=== PATIENT | female | born 1940 | race Caucasian/White ===

== ENCOUNTER 2016-04-26 11:40 | Inpatient (IN) | payer MEDICARE, BC ==
[2016-04-26] MEDS ORDERED: SODIUM CHLORIDE 0.9% 500 ML IV STA (12:02)
[2016-04-26] MEDS ORDERED: SODIUM CHLORIDE 0.9% 1,000 ML IV STA ×2 (12:02)
[2016-04-26] MEDS ORDERED: KETOROLAC 30 MG/ML 1 ML VIAL IVP STA (12:02)
[2016-04-26] MEDS ORDERED: DILTIAZEM 5 MG/ML 5 ML VIAL IVP STA (12:02)
[2016-04-26] MEDS ORDERED: ACETAMINOPHEN IV (For NPO) 1,000 MG in EMPTY BAG 1 BAG IVPB STA (12:02)
[2016-04-26] MEDS ORDERED: DILTIAZEM 125 MG in SODIUM CHLORIDE 0.9% 100 ML IV ONE (12:02)
--- NOTE | 2016-04-26 12:05 | ED ---
General Adult HPI - General Chief complaint: Arrhythmia/Palpitations Stated complaint: [facility] Time Seen by Provider: 04/26/16 11:53 Source: patient, RN notes reviewed, old records reviewed Mode of arrival: wheelchair Limitations: no limitations - History of Present Illness Initial comments: This is a 76-year-old female to the ER for evaluation of not feeling well. Patient went to see her doctor is, preop evaluation as well as in general not feeling well. Patient is history of high blood pressure, patient at this time is coming in with shortness of breath cough congestion she thought she may have bronchitis or upper respiratory infection. Fevers and chills yesterday and fever today. Patient does have shortness of breath, patient was found in her doctor's office to be in A. fib with RVR and was sent to ER for evaluation. Patient at this time denies any chest pain and no prior history - Related Data Home Medications Medication Instructions Recorded Confirmed Calcium Carbonate [Calcium] 1,200 mg PO AC-LUNCH 04/26/16 04/26/16 Cholecalciferol [Vitamin D3] 4,000 unit PO AC-LUNCH 04/26/16 04/26/16 Fish Oil 300mg 600 mg PO AC-LUNCH 04/26/16 04/26/16 Folic Acid 1 mg PO DAILY 04/26/16 04/26/16 Ipratropium [place] 0.06%Nasal 1 spray EA NOSTRIL DAILY 04/26/16 04/26/16 [Atrovent Nasal] Levothyroxine Sodium [Synthroid] 88 mcg PO DAILY 04/26/16 04/26/16 Meloxicam [Mobic] 15 mg PO DAILY 04/26/16 04/26/16 Methotrexate Sodium [Methotrexate] 15 mg PO GALVAN 04/26/16 04/26/16 Multivitamins, Thera [Multivitamin] 1 tab PO AC-LUNCH 04/26/16 04/26/16 predniSONE 5 mg PO DAILY 04/26/16 04/26/16 Allergies Allergy/AdvReac Type Severity Reaction Status Date / Time erythromycin base Allergy Unknown Verified 04/26/16 13:23 infliximab [From Remicade] Allergy Unknown Verified 04/26/16 13:23 Review of Systems ROS Statement: Those systems with pertinent positive or pertinent negative responses have been documented in the HPI. ROS Other: All systems not noted in ROS Statement are negative. Past Medical History Past Medical History: Rheumatoid Arthritis (RA), Thyroid Disorder History of Any Multi-Drug Resistant Organisms: None Reported Past Surgical History: Hernia Repair, Hysterectomy, Orthopedic Surgery Additional Past Surgical History / Comment(s): eye surgery Past Psychological History: No Psychological Hx Reported Smoking Status: Former smoker Past Alcohol Use History: None Reported Past Drug Use History: None Reported General Exam Limitations: no limitations General appearance: alert, in no apparent distress, anxious Head exam: Present: atraumatic, normocephalic, normal inspection Eye exam: Present: normal appearance, PERRL, EOMI. Absent: scleral icterus, conjunctival injection, periorbital swelling ENT exam: Present: normal exam, mucous membranes moist Neck exam: Present: normal inspection. Absent: tenderness, meningismus, lymphadenopathy Respiratory exam: Present: normal lung sounds bilaterally. Absent: respiratory distress, wheezes, rales, rhonchi, stridor Cardiovascular Exam: Present: tachycardia, irregular rhythm, normal heart sounds. Absent: systolic murmur, diastolic murmur, rubs, gallop, clicks GI/Abdominal exam: Present: soft, normal bowel sounds. Absent: distended, tenderness, guarding, rebound, rigid Extremities exam: Present: normal inspection, full ROM, normal capillary refill. Absent: tenderness, pedal edema, joint swelling, calf tenderness Back exam: Present: normal inspection Neurological exam: Present: alert, oriented X3, CN II-XII intact Psychiatric exam: Present: normal affect, normal mood Skin exam: Present: warm, dry, intact, normal color. Absent: rash Course Vital Signs 04/26/16 04/26/16 04/26/16 11:49 12:51 13:00 Temperature 100.8 F H Pulse Rate 162 H 166 H 85 Respiratory 20 18 18 Rate Blood Pressure 124/83 149/85 148/85 O2 Sat by Pulse 98 97 97 Oximetry 04/26/16 13:17 Temperature Pulse Rate 65 Respiratory 18 Rate Blood Pressure 137/61 O2 Sat by Pulse 94 L Oximetry - Reevaluation(s) Reevaluation #1: 04/26/16 13:18 Patient has good heart rate control with fever control as well as Cardizem EKG Findings - EKG Comments: EKG Findings:: EKG shows A. fib with RVR rate 138, QRS 82, QTC 448 Medical Decision Making - Medical Decision Making Mckayla female here for evaluation of new onset A. fib with RVR, patient remains in A. fib with RVR but now with rate control, patient will be admitted for for cardiology observation and treatment. Patient also found a fever, no known source at this time. Patient will be admitted for evaluation of blood cultures and urine. Chest x-ray this time is negative for pneumonia. - Lab Data Result diagrams: 04/26/16 12:10 04/26/16 12:10 Lab Results 04/26/16 04/26/16 04/26/16 Range/Units 12:10 12:10 12:10 WBC 9.0 (3.8-10.6) k/uL RBC 5.05 (3.80-5.40) m/uL Hgb 15.5 (11.4-16.0) gm/dL Hct 48.2 H (34.0-46.0) % MCV 95.5 (80.0-100.0) fL MCH 30.6 (25.0-35.0) pg MCHC 32.1 (31.0-37.0) g/dL RDW 14.6 (11.5-15.5) % Plt Count 193 (150-450) k/uL Neutrophils % 86 % Lymphocytes % 5 % Monocytes % 7 % Eosinophils % 1 % Basophils % 1 % Neutrophils # 7.7 (1.3-7.7) k/uL Lymphocytes # 0.5 L (1.0-4.8) k/uL Monocytes # 0.6 (0-1.0) k/uL Eosinophils # 0.1 (0-0.7) k/uL Basophils # 0.1 (0-0.2) k/uL PT (9.0-12.0) sec INR (<1.1) APTT (22.0-30.0) sec D-Dimer (<0.60) mg/L FEU Sodium 141 (137-145) mmol/L Potassium 4.2 (3.5-5.1) mmol/L Chloride 105 (98-107) mmol/L Carbon Dioxide 28 (22-30) mmol/L Anion Gap 8 mmol/L BUN 13 (7-17) mg/dL Creatinine 0.70 (0.52-1.04) mg/dL Est GFR (MDRD) Af Amer >60 (>60 ml/min/1.73 sqM) Est GFR (MDRD) Non-Af >60 (>60 ml/min/1.73 sqM) Glucose 159 H (74-99) mg/dL Plasma Lactic Acid Patrick (0.7-2.0) mmol/L Calcium 9.2 (8.4-10.2) mg/dL Phosphorus 2.8 (2.5-4.5) mg/dL Magnesium 1.8 (1.6-2.3) mg/dL Total Bilirubin 0.9 (0.2-1.3) mg/dL AST 30 (14-36) U/L ALT 40 (9-52) U/L Alkaline Phosphatase 69 (38-126) U/L Total Creatine Kinase 35 (30-135) U/L CK-MB (CK-2) 0.7 (0.0-2.4) ng/mL CK-MB (CK-2) Rel Index 2.0 Troponin I 0.012 (0.000-0.034) ng/mL NT-Pro-B Natriuret Pep pg/mL Total Protein 6.5 (6.3-8.2) g/dL Albumin 3.8 (3.5-5.0) g/dL Urine Color Urine Appearance (Clear) Urine pH (5.0-8.0) Ur Specific [place] [employer] (1.001-1.035) Urine Protein (Negative) Urine Glucose (UA) (Negative) Urine Ketones (Negative) Urine Blood (Negative) Urine Nitrate (Negative) Urine Bilirubin (Negative) Urine Urobilinogen (<2.0) mg/dL Ur Leukocyte Esterase (Negative) Urine RBC (0-5) /hpf Urine WBC (0-5) /hpf Ur Squamous Epith Cells (0-4) /hpf Urine Mucus (None) /hpf 04/26/16 04/26/16 04/26/16 Range/Units 12:10 12:10 12:24 WBC (3.8-10.6) k/uL RBC (3.80-5.40) m/uL Hgb (11.4-16.0) gm/dL Hct (34.0-46.0) % MCV (80.0-100.0) fL MCH (25.0-35.0) pg MCHC (31.0-37.0) g/dL RDW (11.5-15.5) % Plt Count (150-450) k/uL Neutrophils % % Lymphocytes % % Monocytes % % Eosinophils % % Basophils % % Neutrophils # (1.3-7.7) k/uL Lymphocytes # (1.0-4.8) k/uL Monocytes # (0-1.0) k/uL Eosinophils # (0-0.7) k/uL Basophils # (0-0.2) k/uL PT 12.3 H (9.0-12.0) sec INR 1.2 (<1.1) APTT 22.3 (22.0-30.0) sec D-Dimer 0.45 (<0.60) mg/L FEU Sodium (137-145) mmol/L Potassium (3.5-5.1) mmol/L Chloride (98-107) mmol/L Carbon Dioxide (22-30) mmol/L Anion Gap mmol/L BUN (7-17) mg/dL Creatinine (0.52-1.04) mg/dL Est GFR (MDRD) Af Amer (>60 ml/min/1.73 sqM) Est GFR (MDRD) Non-Af (>60 ml/min/1.73 sqM) Glucose (74-99) mg/dL Plasma Lactic Acid Patrick 1.2 (0.7-2.0) mmol/L Calcium (8.4-10.2) mg/dL Phosphorus (2.5-4.5) mg/dL Magnesium (1.6-2.3) mg/dL Total Bilirubin (0.2-1.3) mg/dL AST (14-36) U/L ALT (9-52) U/L Alkaline Phosphatase (38-126) U/L Total Creatine Kinase (30-135) U/L CK-MB (CK-2) (0.0-2.4) ng/mL CK-MB (CK-2) Rel Index Troponin I (0.000-0.034) ng/mL NT-Pro-B Natriuret Pep 2930 pg/mL Total Protein (6.3-8.2) g/dL Albumin (3.5-5.0) g/dL Urine Color Urine Appearance (Clear) Urine pH (5.0-8.0) Ur Specific [place] [employer] (1.001-1.035) Urine Protein (Negative) Urine Glucose (UA) (Negative) Urine Ketones (Negative) Urine Blood (Negative) Urine Nitrate (Negative) Urine Bilirubin (Negative) Urine Urobilinogen (<2.0) mg/dL Ur Leukocyte Esterase (Negative) Urine RBC (0-5) /hpf Urine WBC (0-5) /hpf Ur Squamous Epith Cells (0-4) /hpf Urine Mucus (None) /hpf 04/26/16 Range/Units 12:55 WBC (3.8-10.6) k/uL RBC (3.80-5.40) m/uL Hgb (11.4-16.0) gm/dL Hct (34.0-46.0) % MCV (80.0-100.0) fL MCH (25.0-35.0) pg MCHC (31.0-37.0) g/dL RDW (11.5-15.5) % Plt Count (150-450) k/uL Neutrophils % % Lymphocytes % % Monocytes % % Eosinophils % % Basophils % % Neutrophils # (1.3-7.7) k/uL Lymphocytes # (1.0-4.8) k/uL Monocytes # (0-1.0) k/uL Eosinophils # (0-0.7) k/uL Basophils # (0-0.2) k/uL PT (9.0-12.0) sec INR (<1.1) APTT (22.0-30.0) sec D-Dimer (<0.60) mg/L FEU Sodium (137-145) mmol/L Potassium (3.5-5.1) mmol/L Chloride (98-107) mmol/L Carbon Dioxide (22-30) mmol/L Anion Gap mmol/L BUN (7-17) mg/dL Creatinine (0.52-1.04) mg/dL Est GFR (MDRD) Af Amer (>60 ml/min/1.73 sqM) Est GFR (MDRD) Non-Af (>60 ml/min/1.73 sqM) Glucose (74-99) mg/dL Plasma Lactic Acid Patrick (0.7-2.0) mmol/L Calcium (8.4-10.2) mg/dL Phosphorus (2.5-4.5) mg/dL Magnesium (1.6-2.3) mg/dL Total Bilirubin (0.2-1.3) mg/dL AST (14-36) U/L ALT (9-52) U/L Alkaline Phosphatase (38-126) U/L Total Creatine Kinase (30-135) U/L CK-MB (CK-2) (0.0-2.4) ng/mL CK-MB (CK-2) Rel Index Troponin I (0.000-0.034) ng/mL NT-Pro-B Natriuret Pep pg/mL Total Protein (6.3-8.2) g/dL Albumin (3.5-5.0) g/dL Urine Color Yellow Urine Appearance Clear (Clear) Urine pH 6.0 (5.0-8.0) Ur Specific [place] [employer] 1.006 (1.001-1.035) Urine Protein Negative (Negative) Urine Glucose (UA) Negative (Negative) Urine Ketones Negative (Negative) Urine Blood Small H (Negative) Urine Nitrate Negative (Negative) Urine Bilirubin Negative (Negative) Urine Urobilinogen <2.0 (<2.0) mg/dL Ur Leukocyte Esterase Negative (Negative) Urine RBC 2 (0-5) /hpf Urine WBC 2 (0-5) /hpf Ur Squamous Epith Cells 2 (0-4) /hpf Urine Mucus Rare H (None) /hpf - Radiology Data Radiology results: report reviewed (Chest x-ray is negative for acute disease), image reviewed Critical Care Time Critical Care Time: Yes Total Critical Care Time: 31 Disposition Clinical Impression: Atrial fibrillation with RVR, Fever Disposition: ADMITTED IP TO THIS HOSP Condition: Fair Referrals: Jhonny Ryan DO [Primary Care Provider] - 1-2 days
[2016-04-26 12:21] LABS: Basophils # (A) 0.1 k/uL (0-0.2); Basophils % (A) 1 %; CH 31.1; CHCM 32.8; Eosinophils # (A) 0.1 k/uL (0-0.7); Eosinophils % (A) 1 %; HCT 48.2 % (34.0-46.0); HDW 2.49; HGB 15.5 gm/dL (11.4-16.0); Luc # (Auto) 0.11; Luc % (Auto) 1; Lymphocytes # (A) 0.5 k/uL (1.0-4.8); Lymphocytes % (A) 5 %; MCH 30.6 pg (25.0-35.0); MCHC 32.1 g/dL (31.0-37.0); MCV 95.5 fL (80.0-100.0); Mean Platelet Volume 8.9; Monocytes # (A) 0.6 k/uL (0-1.0); Monocytes % (A) 7 %; Neutrophils # (A) 7.7 k/uL (1.3-7.7); Neutrophils % (A) 86 %; RBC 5.05 m/uL (3.80-5.40); RDW 14.6 % (11.5-15.5); WBC (Perox) 8.73
[2016-04-26 12:36] LABS: ALT 40 U/L (9-52); AST 30 U/L (14-36); Alkaline Phosphatase 69 U/L (38-126); Anion Gap 8 mmol/L; Blood Urea Nitrogen 13 mg/dL (7-17); Calcium 9.2 mg/dL (8.4-10.2); Carbon Dioxide 28 mmol/L (22-30); Chloride 105 mmol/L (98-107); Glucose 159 mg/dL (74-99); INR 1.2 (<1.1); Magnesium 1.8 mg/dL (1.6-2.3); Non-African American GFR(MDRD) >60 (>60 ml/min/1.73 sqM); Partial Thromboplastin Time 22.3 sec (22.0-30.0); Phosphorous 2.8 mg/dL (2.5-4.5); Potassium 4.2 mmol/L (3.5-5.1); Prothrombin Time 12.3 sec (9.0-12.0); Sodium 141 mmol/L (137-145); Total Bilirubin 0.9 mg/dL (0.2-1.3); Total Protein 6.5 g/dL (6.3-8.2)
--- NOTE | 2016-04-26 12:49 | XR ---
EXAMINATION TYPE: XR chest 2V DATE OF EXAM: 04/26/2016 12:37 PM COMPARISON: 06/06/2012 HISTORY: 76-year-old female cough, shortness of breath, weakness TECHNIQUE: Frontal and lateral views FINDINGS: Heart is normal size. Aorta and pelvic vasculature within normal limits. Mild hyperinflation mild int erstitial prominence. No consolidation or pleural effusion seen. IMPRESSION: Chronic changes, possible underlying COPD. No acute process seen.
[2016-04-26 13:06] LABS: Creatine Kinase MB 0.7 ng/mL (0.0-2.4); Troponin I 0.012 ng/mL (0.000-0.034)
[2016-04-26 13:08] LABS: Appearance,Urine Clear (Clear); Bilirubin,Urine Negative (Negative); Glucose,Urine (UA) Negative (Negative); Ketones,Urine Negative (Negative); Leukocyte Esterase,Urine Negative (Negative); Mucus,Urine Rare /hpf; Nitrite,Urine Negative (Negative); Particle Count 1430; Protein,Urine Negative (Negative); RBC,Urine 2 /hpf (0-5); Specific Gravity,Urine 1.006 (1.001-1.035); Squamous Epithelial Cell,Urine 2 /hpf (0-4); UA Billing (MACRO vs. MICRO) MICRO; Urobilinogen,Urine <2.0 mg/dL (<2.0); WBC,Urine 2 /hpf (0-5)
[2016-04-26] MEDS ORDERED: HEPARIN SODIUM,PORCINE 5,000 UNIT/ML 1 ML VIAL IV PRN (14:00)
[2016-04-26] MEDS ORDERED: NITROGLYCERIN SL TABS 0.4 MG TAB SUBLINGUAL PRN (14:00)
[2016-04-26] MEDS ORDERED: ASPIRIN 81 MG CHEW PO STA (14:00)
[2016-04-26] MEDS ORDERED: HEPARIN SODIUM,PORCINE/D5W PMX 25,000 UNIT in DEXTROSE/WATER 1 500ML.BAG IV SCH (14:00)
[2016-04-26] MEDS ORDERED: HEPARIN SODIUM,PORCINE 5,000 UNIT/ML 1 ML VIAL IV ONE (14:00)
[2016-04-26] MEDS: SODIUM CHLORIDE 0.9% 1,000 ML IV SCH (14:50)
--- NOTE | 2016-04-26 15:39 | P.CRDCN ---
History of Present Illness Consult date: 04/26/16 Requesting physician: Asif Mena Consult reason: atrial fibrillation Chief complaint: Chest discomfort History of present illness: This is a pleasant 76-year-old female with history of rheumatoid arthritis, hypothyroidism, who states that yesterday morning she developed a discomfort in her mid chest area with radiation through to her back, up the sides of her neck and into her jaw. She denies any overt palpitations but states that at time she did notice her heart beating fast. Patient originally thought the symptoms may be a flareup of her rheumatoid. Then the patient states she developed some chills and thought she may be developing a bronchitis. She knew that she had a follow-up appointment with her doctor this morning for preop clearance for cataract surgery, therefore she waited to come to the hospital. At her physician's office, patient was found to be in atrial fibrillation with a rapid ventricular response and was directed to come to the emergency room for further evaluation. On presentation here EKG showed A. fib with rapid ventricular response, patient was initiated on IV Cardizem along with IV heparin. Blood pressure on arrival 124/80, heart rate 160, temperature was 100.8. Chest x-ray revealed chronic changes with underlying COPD. Laboratory data was reviewed, CBC normal. D-dimer 0.45, potassium 4.2, BUN 13, creatinine 0.7. Troponin 0.012, BNP level 2930. Magnesium level I.8. My examination, patient actually feels well, denies any chest pain, no palpitations. Past Medical History Past Medical History: Rheumatoid Arthritis (RA), Thyroid Disorder History of Any Multi-Drug Resistant Organisms: None Reported Past Surgical History: Hernia Repair, Hysterectomy, Orthopedic Surgery Additional Past Surgical History / Comment(s): eye surgery Past Psychological History: No Psychological Hx Reported Smoking Status: Former smoker Past Alcohol Use History: None Reported Past Drug Use History: None Reported Medications and Allergies Home Medications Medication Instructions Recorded Confirmed Type Calcium Carbonate [Calcium] 1,200 mg PO AC-LUNCH 04/26/16 04/26/16 History Cholecalciferol [Vitamin D3] 4,000 unit PO AC-LUNCH 04/26/16 04/26/16 History Fish Oil 300mg 600 mg PO AC-LUNCH 04/26/16 04/26/16 History Folic Acid 1 mg PO DAILY 04/26/16 04/26/16 History Ipratropium [place] 0.06%Nasal 1 spray EA NOSTRIL DAILY 04/26/16 04/26/16 History [Atrovent Nasal] Levothyroxine Sodium [Synthroid] 88 mcg PO DAILY 04/26/16 04/26/16 History Meloxicam [Mobic] 15 mg PO DAILY 04/26/16 04/26/16 History Methotrexate Sodium [Methotrexate] 15 mg PO GALVAN 04/26/16 04/26/16 History Multivitamins, Thera [Multivitamin] 1 tab PO AC-LUNCH 04/26/16 04/26/16 History predniSONE 5 mg PO DAILY 04/26/16 04/26/16 History Allergies Allergy/AdvReac Type Severity Reaction Status Date / Time erythromycin base Allergy Unknown Verified 04/26/16 13:23 infliximab [From Remicade] Allergy Unknown Verified 04/26/16 13:23 Physical Exam Vitals: Vital Signs Temp Pulse Resp BP Pulse Ox 04/26/16 14:57 99.4 F 95 18 137/61 98 PHYSICAL EXAMINATION: HEENT: Head is atraumatic, normocephalic. Pupils equal, round. Neck is supple. There is no elevated jugular venous pressure. HEART EXAMINATION: S1 and S2 irregular irregular CHEST EXAMINATION: Lungs are clear to auscultation and precussion. No chest wall tenderness is noted on palpation or with deep breathing. ABDOMEN: Soft, nontender. Bowel sounds are heard. No organomegaly noted. EXTREMITIES: 2+ peripheral pulses with no evidence of peripheral edema and no calf tenderness noted. NEUROLOGIC patient is awake, alert and oriented -3. . Results 04/26/16 12:10 04/26/16 12:10 Current Medications Generic Name Dose Route Start Last Admin Trade Name Freq PRN Reason Stop Dose Admin Aspirin 325 mg 04/27/16 09:00 Aspirin PO DAILY [facility] Atorvastatin Calcium 80 mg 04/27/16 09:00 Lipitor PO DAILY [facility] Heparin Sodium (Porcine) 0 unit 04/26/16 14:00 Heparin IV Q6HR PRN Low PTT Protocol Diltiazem HCl 125 mg/ Sodium 125 mls @ 5 mls/hr 04/26/16 12:02 04/26/16 13:20 Chloride IV 04/27/16 12:01 Not Given .Q24H ONE 5 MG/HR Sodium Chloride 1,000 mls @ 100 mls/hr 04/26/16 12:02 04/26/16 14:44 Saline 0.9% IV 04/26/16 22:01 Not Given .Q10H STA Heparin Sodium/Dextrose 25,000 500 mls @ 17.41 mls/hr 04/26/16 14:00 14:55 unit/ IV Solution IV 12 units/kg/hr .Q24H NEGRO 17.41 mls/hr Protocol Administration 12 UNITS/KG/HR Sodium Chloride 1,000 mls @ 100 mls/hr 04/26/16 14:00 04/26/16 14:50 Saline 0.9% IV 100 mls/hr .Q10H NEGRO Administration Morphine Sulfate 4 mg 04/26/16 14:00 Morphine Sulfate (Inj) IV Q4HR PRN Chest Pain Nitroglycerin 0.4 mg 04/26/16 14:00 Nitrostat SUBLINGUAL Q5M PRN Chest Pain EKG Interpretations (text) EKG shows atrial fibrillation with a rapid ventricular response. Assessment and Plan Plan: Assessment and Plan #1 Atrial fibrillation with rapid ventricular response, appears to be of new onset. #2 hypothyroidism #3 symptoms of chest discomfort with radiation to the throat area, could be secondary to A. fib with RVR, initial troponin negative. #4 symptoms of mild shortness of breath, and also be secondary to A. fib with RVR, BNP level 2930. Low-grade temp on arrival #5 rheumatoid arthritis Plan We'll obtain an echocardiogram with Doppler study, continue IV heparin, continue IV Cardizem, check free T4 and TSH level. Further recommendations will be based on these findings and the patient's critical course. DNP note has been reviewed, I agree with a documented findings and plan of care. Patient was seen and examined.
--- NOTE | 2016-04-26 16:27 | P.PN ---
Progress Note - Text This is an addendum to the dictated cardiology consultation. The patient has a history of rheumatoid arthritis. Yesterday she felt dyspneic, worse than her baseline with symptoms of chest tightness and palpitations. Came into the emergency room and was noted to be in atrial fibrillation with a rapid ventricle response. She was scheduled to undergo cardiac surgery soon and was seen earlier today by her PCP for preoperative evaluation. Patient had symptoms of dizziness about 2 weeks ago and was diagnosed with an upper respiratory infection. Her level of activity stable, she has dyspnea on exertion without any significant changes. She has no prior history of ischemic heart disease or heart failure. She has no history of documented arrhythmia. Her physical examination shows no lung congestion, she is in atrial fibrillation. Her EKG is consistent with atrial fibrillation. I will obtain an echocardiogram with Doppler, the patient is started on IV Cardizem and IV heparin. If her cardiac enzymes are normal then we will switch her to oral anticoagulation and oral Cardizem. She will benefit from an myocardial perfusion imaging to rule out any ischemic component. Depending on her progress further recommendations will be made. Thank you for this consult we will follow with you.
[2016-04-26 19:15] LABS: Creatine Kinase 39 U/L (30-135)
[2016-04-26 19:26] LABS: Creatine Kinase MB 0.8 ng/mL (0.0-2.4)
[2016-04-26 20:05] LABS: Troponin I <0.012 ng/mL (0.000-0.034)
[2016-04-26 23:09] LABS: Creatine Kinase 32 U/L (30-135)
[2016-04-26 23:19] LABS: Creatine Kinase MB 0.7 ng/mL (0.0-2.4); Troponin I <0.012 ng/mL (0.000-0.034)
[2016-04-27] MEDS: SODIUM CHLORIDE 0.9% 1,000 ML IV SCH ×2 (00:17→09:26)
[2016-04-27] MEDS: MORPHINE SULFATE 4 MG/ML SYRINGE IV PRN (01:33)
[2016-04-27] MEDS ORDERED: DILTIAZEM 5 MG/ML 5 ML VIAL IVP STA (03:19)
[2016-04-27] MEDS ORDERED: DILTIAZEM 125 MG in SODIUM CHLORIDE 0.9% 100 ML IV SCH (03:30)
[2016-04-27] MEDS: LEVOTHYROXINE 88 MCG TAB PO SCH (06:13)
[2016-04-27 06:43] LABS: Basophils % (A) 0 %; CH 30.3; CHCM 31.5; Eosinophils % (A) 0 %; HCT 44.3 % (34.0-46.0); HDW 2.45; HGB 13.6 gm/dL (11.4-16.0); Luc # (Auto) 0.17; Luc % (Auto) 2; Lymphocytes # (A) 0.6 k/uL (1.0-4.8); Lymphocytes % (A) 6 %; MCH 29.8 pg (25.0-35.0); MCHC 30.8 g/dL (31.0-37.0); MCV 96.9 fL (80.0-100.0); Mean Platelet Volume 7.9; Monocytes # (A) 0.8 k/uL (0-1.0); Monocytes % (A) 9 %; Neutrophils # (A) 7.3 k/uL (1.3-7.7); Neutrophils % (A) 82 %; RBC 4.57 m/uL (3.80-5.40); RDW 14.5 % (11.5-15.5); WBC (Perox) 9.35
[2016-04-27 06:52] LABS: Anion Gap 8 mmol/L; Blood Urea Nitrogen 12 mg/dL (7-17); Calcium 8.4 mg/dL (8.4-10.2); Carbon Dioxide 25 mmol/L (22-30); Chloride 107 mmol/L (98-107); Cholesterol 147 mg/dL (<200); Glucose 124 mg/dL (74-99); HDL Cholesterol 67 mg/dL (40-60); Non-African American GFR(MDRD) >60 (>60 ml/min/1.73 sqM); Potassium 4.6 mmol/L (3.5-5.1); Sodium 140 mmol/L (137-145); Triglycerides 56 mg/dL (<150)
[2016-04-27] MEDS: IPRATROPIUM BROMIDE 0.06% NASAL SPRAY (15 ML) EA NOSTRIL SCH (08:32)
[2016-04-27] MEDS: ATORVASTATIN 80 MG TAB PO SCH (08:33)
[2016-04-27] MEDS: predniSONE 5 MG TAB PO SCH (08:34)
[2016-04-27] MEDS: MELOXICAM 7.5 MG TAB PO SCH (08:35)
[2016-04-27] MEDS ORDERED: ASPIRIN 325 MG TAB PO SCH (09:00)
--- NOTE | 2016-04-27 09:54 | HP ---
DATE OF ADMISSION: CHIEF COMPLAINT: Atrial fibrillation. HISTORY OF PRESENT ILLNESS: This 76-year-old woman with a past medical history of multiple medical problems including rheumatoid arthritis, history of hypothyroidism, history of lower lip cancer, history of hernia repair, history of hysterectomy being followed by Dr. Ryan in the outpatient setting was not feeling well for the last couple of days. The patient had a sore back and the patient was also complaining of some chest discomfort. The patient is generally not feeling well and patient apparently was busy last week according to her taking appointments and such, but the patient also was complaining of some shortness of breath, cough and congestion. Because of the multiple medical issues, the patient Dr. Ryan's office and EKG in the office showed atrial fibrillation with fast ventricular rate. Patient was transferred to [facility] for further evaluation and treatment. EKG confirmed atrial fibrillation with a fast ventricular rate. The patient was started on Cardizem drip. There is no history of any fever, rigors. No history headache, loss of consciousness or seizures PAST MEDICAL HISTORY: History of rheumatoid arthritis, history of hypothyroidism, hernia repair, hysterectomy. Medications prior to admission include home medications are: 1. Prednisone 5 mg p.o. daily. 2. Multivitamins 1 p.o. daily. 3. Methotrexate 15 mg p.o. Tuesday. 4. Mobic 15 mg p.o. daily. 5. Synthroid 88 mcg p.o. daily. 6. Atrovent nasal one spray daily. 7. Folic acid 1 mg p.o. daily. 8. Fish oil 600 mg a.c. lunch. 9. Vitamin D3, 4000 a.c. lunch. 10. Calcium 1200 mg a.c. lunch. Allergies are ERYTHROMYCIN, REMICADE. FAMILY HISTORY: The mother when the patient was born. SOCIAL HISTORY: Previous history of smoking. No history of alcohol intake. REVIEW OF SYSTEMS: ENT: No diminished hearing or vision. CARDIOVASCULAR: As mentioned earlier. RESPIRATORY: As mentioned earlier.. GI: No nausea. : No dysuria. NERVOUS SYSTEM: No numbness or weakness. ALLERGY/IMMUNOLOGY: No asthma or hayfever. MUSCULOSKELETAL: As mentioned earlier. HEMATOLOGY/ONCOLOGY: No history of anemia. ENDOCRINE: As mentioned earlier. CONSTITUTIONAL: As mentioned earlier. DERMATOLOGY: Negative. RHEUMATOLOGY: As mentioned earlier. PSYCHIATRY: As mentioned earlier. PHYSICAL EXAMINATION: The patient is alert and oriented. Pulse 79, blood pressure 144/67, respirations 18, temperature 97.7, pulse ox 94% on 4 L on room air. HEENT: Conjunctivae normal. NECK: No jugular venous distention. CARDIOVASCULAR: S1 and S2, muffled. RESPIRATORY: Breath sounds diminished at the bases. Bilateral scattered rhonchi and crackles. ABDOMEN: Soft, nontender. No mass palpable. LEGS: No edema, no swelling. NERVOUS SYSTEM: Higher function as mentioned earlier. Moves all 4 limbs. LYMPHATICS: No lymphadenopathy of neck, axillae or groin. SKIN: No ulcers, rashes or bleeding. JOINTS: Deformities of rheumatoid arthritis. LABS: INR is 1.2. Hemoglobin is 15.5. Glucose 159. Plasma lactic acid 1.2. Influenza is not detected. ASSESSMENT: 1. Atrial fibrillation with a fast ventricular rate. 2. Possibly short febrile illness, viral illness. 3. Rheumatoid arthritis with deformities. 4. Hypothyroidism. 5. Bilateral cataracts. 6. History of hernia repair. 7. History of degenerative joint disease. 8. Remote history of nicotine dependence. 9. Obesity with body mass index of 30.7. RECOMMENDATIONS AND DISCUSSION: This 76-year-old woman who presented with multiple complex medical issues. Will monitor the patient closely. Continue the current medications. Continue symptomatic treatment. Continue Cardizem drip. Cardiology evaluation. A 2-D echo with Doppler, antiplatelet agents. Otherwise, continue the previous medications. Will the home medications as well. The prognosis guarded because of multiple complex medical issues. Influenza is negative. Further recommendations to follow. A copy of dictation is forwarded to Dr. Ryan who is the primary physician. HERRERA
[2016-04-27] MEDS ORDERED: REGADENOSON 0.4 MG/5 ML SYRINGE IV ONE (10:23)
[2016-04-27] MEDS ORDERED: AMINOPHYLLINE 500 MG/20 ML VIAL IV PRN (10:23)
--- NOTE | 2016-04-27 10:25 | ECHOF ---
Referral Reason:afib MEASUREMENTS -------- HEIGHT: 157.5 cm WEIGHT: 72.6 kg BP: 137/61 RVIDd: 2.6 cm (< 3.3) IVSd: 1.0 cm (0.6 - 1.1) LVIDd: 3.8 cm (3.9 - 5.3) LVPWd: 1.0 cm (0.6 - 1.1) IVSs: 1.3 cm LVIDs: 2.6 cm LVPWs: 1.3 cm IVSs: 1.3 cm LAESV Index (A-L): 26.02 ml/m Ao Diam: 3.4 cm (2.0 - 3.7) AV Cusp: 1.9 cm (1.5 - 2.6) LA Diam: 2.9 cm (2.7 - 3.8) MV EXCURSION: 13.362 mm (> 18.000) MV EF SLOPE: 37 mm/s (70 - 150) EPSS: 0.7 cm RAP: 5.00 mmHg RVSP: 29.09 mmHg FINDINGS -------- Sinus rhythm. This was a technically good study. The left ventricular size is normal. Left ventricular wall thickness is normal. Overall left ventricular systolic function is normal with, an EF between 55 - 60 %. The right ventricle is normal in size. Normal LA size by volume 22+/-6 ml/m2. The right atrium is normal in size. Aortic valve is trileaflet and is mildly thickened. The mitral valve leaflets are mildly thickened. Moderate mitral annular calcification present. Mild mitral regurgitation is present. Mild tricuspid regurgitation present. Right ventricular systolic pressure is normal at < 35 mmHg. The pulmonic valve was not well visualized. The aortic root size is normal. Normal inferior vena cava with normal inspiratory collapse consistent with estimated right atrial pressure of 5 mmHg. There is no pericardial effusion. CONCLUSIONS -------- 1. Sinus rhythm. 2. The mitral valve leaflets are mildly thickened. 3. Moderate mitral annular calcification present. 4. Mild mitral regurgitation is present. 5. Mild tricuspid regurgitation present. 6. Right ventricular systolic pressure is normal at < 35 mmHg. 7. The pulmonic valve was not well visualized. 8. The aortic root size is normal. 9. Normal inferior vena cava with normal inspiratory collapse consistent with estimated right atrial pressure of 5 mmHg. 10. There is no pericardial effusion. 11. This was a technically good study. 12. The left ventricular size is normal. 13. Left ventricular wall thickness is normal. 14. Overall left ventricular systolic function is normal with, an EF between 55 - 60 %. 15. The right ventricle is normal in size. 16. Normal LA size by volume 22+/-6 ml/m2. 17. The right atrium is normal in size. 18. Aortic valve is trileaflet and is mildly thickened. SASH MAKER: Hayley Bhakta RDCS
[2016-04-27] MEDS: APIXABAN 5 MG TAB PO SCH ×2 (10:48→20:46)
[2016-04-27] MEDS: METOPROLOL TARTRATE 25 MG TAB PO SCH ×2 (10:48→20:46)
[2016-04-27] MEDS: MULTIVITAMINS, THERA 1 EACH TAB PO SCH (11:37)
[2016-04-27] MEDS: CHOLECALCIFEROL 1,000 UNIT TAB PO SCH (11:37)
[2016-04-27] MEDS: FOLIC ACID 1 MG TAB PO SCH (11:37)
[2016-04-27] MEDS: CALCIUM CARBONATE 500 MG CHEWABLE PO SCH (11:38)
[2016-04-27] MEDS ORDERED: FISH OIL PO SCH (12:30)
--- NOTE | 2016-04-27 12:36 | P.PN ---
Subjective Principal diagnosis: Atrial fibrillation This is a pleasant 76-year-old female with history of rheumatoid arthritis and hypothyroidism who presented to the hospital with new onset of atrial fibrillation. She continues to be in atrial fibrillation this morning, heart rate in the 1 teens. Currently on IV Cardizem drip along with heparin. Patient had an episode through the evening, of chest heaviness and pressure which she states worsened when she lied flat, and improved with sitting forward. Troponins have been negative 3. Because of the episode of chest discomfort, patient was recommended undergo a Lexiscan stress test tomorrow. We will discontinue the IV heparin and initiate Eliquis, discontinue the Cardizem drip , increase beta pa to 25 mg one tablet by mouth twice a day. Objective - Vital Signs Vital signs: Vital Signs Temp 99.4 F 04/27/16 11:45 Pulse 64 04/27/16 11:46 Resp 18 04/27/16 11:46 BP 107/66 04/27/16 11:45 Pulse Ox 95 04/27/16 11:45 Intake & Output 04/26/16 04/27/16 04/27/16 18:59 06:59 18:59 Intake Total 240 278.27 180 Balance 240 278.27 180 Weight 76.2 kg 75.7 kg Intake: Intake, IV Titration 278.27 Amount Heparin Sodium,Porcine/ 278.27 D5w Pmx 25,000 unit In Dextrose/Water 1 500ml. bag @ 12 UNITS/KG/HR 17. 41 mls/hr IV .Q24H [facility] Rx #:[id number] Oral 240 180 Other: Voiding Method Toilet Toilet # Voids 1 - Exam PHYSICAL EXAMINATION: HEENT: Head is atraumatic, normocephalic. Pupils equal, round. Neck is supple. There is no elevated jugular venous pressure. HEART EXAMINATION: S1 and S2 irregularly irregular CHEST EXAMINATION: Lungs are clear to auscultation and precussion. No chest wall tenderness is noted on palpation or with deep breathing. ABDOMEN: Soft, nontender. Bowel sounds are heard. No organomegaly noted. EXTREMITIES: 2+ peripheral pulses with no evidence of peripheral edema and no calf tenderness noted. NEUROLOGIC patient is awake, alert and oriented -3. . - Labs CBC & Chem 7: 04/27/16 05:21 04/27/16 05:21 Labs: Abnormal Lab Results - Last 24 Hours (Table) 04/26/16 04/27/16 04/27/16 Range/Units 22:16 05:21 05:21 MCHC 30.8 L (31.0-37.0) g/dL Lymphocytes # 0.6 L (1.0-4.8) k/uL APTT 50.8 H (22.0-30.0) sec Glucose 124 H (74-99) mg/dL HDL Cholesterol 67 H (40-60) mg/dL 04/27/16 Range/Units 05:21 MCHC (31.0-37.0) g/dL Lymphocytes # (1.0-4.8) k/uL APTT 39.6 H (22.0-30.0) sec Glucose (74-99) mg/dL HDL Cholesterol (40-60) mg/dL Assessment and Plan Plan: Assessment and Plan #1 Atrial fibrillation with rapid ventricular response, new onset, persistent. #2 hypothyroidism #3 symptoms of chest discomfort with radiation to the throat area, could be secondary to A. fib with RVR, initial troponin negative. #4 symptoms of mild shortness of breath, and also be secondary to A. fib with RVR, BNP level 2930. Low-grade temp on arrival #5 rheumatoid arthritis Plan Echocardiogram with Doppler study revealed an ejection fraction of 55-60%. We will discontinue the IV heparin and initiate Eliquis. Increase beta pa to 25 mg one tablet by mouth twice a day. Because of the episode of chest discomfort last night, patient has been recommended to undergo a Lexiscan stress test, this will be scheduled to be performed tomorrow. DNP note has been reviewed, I agree with a documented findings and plan of care. Patient was seen and examined.
--- NOTE | 2016-04-27 20:50 | PN ---
DATE OF SERVICE: 04/27/2016 This 76 -year-old woman was admitted to the hospital with atrial fibrillation, was complaining of a fever. The patient also had a possible viral illness also. The patient was also seen by cardiology. Patient also had a chest discomfort. Troponins are negative at this time. Lexiscan Exercise stress test has been recommended by Cardiology. Past medical history reviewed. REVIEW OF SYSTEMS: CARDIOVASCULAR: As mentioned earlier. RESPIRATORY SYSTEM: As mentioned earlier. GI: No nausea. : No dysuria. Nervous system: No numbness, weakness. Current medications are: 1. Eliquis 2.5 mg p.o. daily. 2. Lipitor 80 mg daily. 3. TUMS 500 mg daily. 4. Vitamin D3 4000 units. 5. Folic acid 1 mg daily. 6. Atrovent. 7. Synthroid. 8. Mobic. 9. Methotrexate. 10. Lopressor. 11. Morphine sulfate. 12. Multivitamins. 13. Nitrostat. 14. Prednisone 5 mg p.o. daily. PHYSICAL EXAMINATION: The patient is alert and oriented times three. Pulse 64, blood pressure 107/60, respiratory 18, temperature 99.4, pulse ox 94% on room air. HEENT: Conjunctivae normal. NECK: No jugular venous distention. CARDIOVASCULAR: S1, S2 muffled. RESPIRATORY: Breath sounds diminished at the bases. Bilateral scattered rhonchi and crackles. ABDOMEN: Soft, nontender. EXTREMITIES: Legs no edema. No swelling. Nervous system: No focal deficits. LABS: CBC within normal limits. Glucose 124. ASSESSMENT: 1. Atrial fibrillation with fast ventricular rate. 2. Possible short febrile viral illness. 3. Rheumatoid arthritis with deformities. 4. Hyperthyroidism. 5. Bilateral cataracts. 6. History of hernia repair. 7. History of degenerative joint disease. 8. Remote history of nicotine dependence. 9. Obesity withy body mass index of 38.7. RECOMMENDATIONS AND DISCUSSION: Recommended to continue current medications, continue with monitoring, symptomatic treatment. Otherwise, at this time, I would recommend continue the rest of the medications. Repeat testing. Closely with cardiology. Stress test. Guarded prognosis. Further recommendations to follow. MTDD
[2016-04-28] MEDS: MORPHINE SULFATE 4 MG/ML SYRINGE IV PRN (01:35)
[2016-04-28] MEDS: LEVOTHYROXINE 88 MCG TAB PO SCH (05:32)
[2016-04-28 06:27] LABS: Basophils % (A) 0 %; CH 30.1; CHCM 31.4; Eosinophils # (A) 0.1 k/uL (0-0.7); Eosinophils % (A) 1 %; HCT 40.8 % (34.0-46.0); HDW 2.48; HGB 12.9 gm/dL (11.4-16.0); Hypochromasia Slight; Luc # (Auto) 0.23; Luc % (Auto) 3; Lymphocytes # (A) 0.8 k/uL (1.0-4.8); Lymphocytes % (A) 9 %; MCH 30.4 pg (25.0-35.0); MCHC 31.6 g/dL (31.0-37.0); MCV 96.3 fL (80.0-100.0); Mean Platelet Volume 8.2; Monocytes # (A) 0.7 k/uL (0-1.0); Monocytes % (A) 8 %; Neutrophils # (A) 6.8 k/uL (1.3-7.7); Neutrophils % (A) 79 %; RBC 4.23 m/uL (3.80-5.40); RDW 14.4 % (11.5-15.5); WBC 8.6 k/uL (3.8-10.6); WBC (Perox) 8.98
[2016-04-28 06:38] LABS: Anion Gap 10 mmol/L; Blood Urea Nitrogen 13 mg/dL (7-17); Calcium 8.4 mg/dL (8.4-10.2); Carbon Dioxide 19 mmol/L (22-30); Chloride 111 mmol/L (98-107); Glucose 105 mg/dL (74-99); Non-African American GFR(MDRD) >60 (>60 ml/min/1.73 sqM); Potassium 4.3 mmol/L (3.5-5.1); Sodium 140 mmol/L (137-145)
[2016-04-28] MEDS: DIGOXIN 250 MCG/ML 2 ML AMP IVP ONE ×2 (06:39→06:46)
[2016-04-28] MEDS ORDERED: METOPROLOL TARTRATE 5 MG/5 ML VIAL IVP STA (07:41)
[2016-04-28] MEDS: METOPROLOL TARTRATE 50 MG TAB PO SCH ×2 (08:11→20:27)
[2016-04-28] MEDS: MELOXICAM 7.5 MG TAB PO SCH (08:21)
[2016-04-28] MEDS: ATORVASTATIN 80 MG TAB PO SCH (08:22)
[2016-04-28] MEDS: APIXABAN 5 MG TAB PO SCH ×2 (08:22→20:27)
[2016-04-28] MEDS: predniSONE 5 MG TAB PO SCH (08:22)
[2016-04-28] MEDS: IPRATROPIUM BROMIDE 0.06% NASAL SPRAY (15 ML) EA NOSTRIL SCH (08:26)
[2016-04-28] MEDS ORDERED: REGADENOSON 0.4 MG/5 ML SYRINGE IV ONE (09:00)
--- NOTE | 2016-04-28 11:31 | NM ---
EXAMINATION TYPE: NM stress lexiscan cardiolite DATE OF EXAM: 04/28/2016 10:52 AM COMPARISON: NONE HISTORY: History of tobacco use quit 25 years ago and COPD with family history of coronary artery dis ease presents with chest pain TECHNIQUE: After the intravenous administration of 10.8 mCi Tc 99m Sestamibi - Cardiolite resting SP ECT images acquired 60 minutes post injection. The patient received 0.4mg Lexiscan, 26 mCi Tc 99m Sestamibi - Stress images obtained 35 minutes post injection FINDINGS: Review of stress and rest SPECT images demonstrates no distinct perfusion abnormality. Gated analysi s shows normal wall motion with an estimated left ventricular ejection fraction of 57 %. IMPRESSION: No scintigraphic evidence for reversible ischemia.
[2016-04-28] MEDS: CALCIUM CARBONATE 500 MG CHEWABLE PO SCH (11:37)
[2016-04-28] MEDS: FOLIC ACID 1 MG TAB PO SCH (11:37)
[2016-04-28] MEDS: MULTIVITAMINS, THERA 1 EACH TAB PO SCH (11:37)
[2016-04-28] MEDS: CHOLECALCIFEROL 1,000 UNIT TAB PO SCH (11:37)
[2016-04-28] MEDS ORDERED: ACETAMINOPHEN TAB 325 MG TAB PO PRN (14:35)
--- NOTE | 2016-04-28 14:40 | EST ---
DATE OF SERVICE: 04/28/2016 AGE: 76Y SEX: F HT: 62" WT: 166 lbs. Lexiscan Cardiolite Stress Test *Heart Rate Blood Pressure *Rest: 96 Rest: 169/71 * *Max. Achieved: 104 Maximum BP: 226/90 85% PMHR: - 100% PMHR: - *METS: - INDICATIONS: Chest pain. MEDICATIONS: - Patient was given Lexiscan injection over a period of 15 seconds. Peak heart rate of 104 was achieved. Maximum blood pressure of 226/90 mmHg was noted. Resting EKG shows atrial fibrillation with normal QRS complex and nonspecific ST-T changes. No ST segment depression suggestive of ischemia is noted. The results of the nuclear study will follow.
--- NOTE | 2016-04-28 16:08 | PN ---
Mrs. Martino is a 76-year-old female who presented with atrial fibrillation. She is still has some soreness in the chest but her breathing has been stable. She denies any dizziness, palpitation. She denies any nausea. She underwent a myocardial perfusion imaging today that revealed no evidence of inducible ischemia, she continues to be on Eliquis 5 mg twice a day, Lipitor 80 mg daily, Metoprolol tartrate 40 milligrams twice a day. PHYSICAL EXAMINATION: Blood pressure 132/70 with a heart rate in the 90s. LUNGS: Clear. HEART: Irregularly irregular. S1, S2, no S3, no rub with a systolic murmur. No diastolic murmur. No rub. ABDOMEN: Soft, nontender. EXTREMITIES: No edema. IMPRESSION: 1. Atrial fibrillation. 2. History of rheumatoid arthritis. 3. History of cataract. RECOMMENDATIONS: From the cardiac standpoint, her dose of beta pa was adjusted today. If she remains stable, I expect she should be able to be discharged home tomorrow.
[2016-04-28 16:49] VITALS: RESP 16
--- NOTE | 2016-04-28 22:28 | PN ---
DATE OF SERVICE: 04/28/2016 This 76-year-old woman who was admitted with atrial fibrillation, fever, aches and chest pain had a stress test which was negative. Patient is still complaining of left-sided chest pains and neck pain also. Cardiology is following the patient closely. Lexiscan stress test is negative. Medication is being adjusted. On exam, alert and oriented x3. Pulse 81, blood pressure 116/87, respiration 18, temperature 99.1, pulse ox 94% on room air. HEENT: Conjunctivae normal. Oral mucosa moist. NECK: No jugular venous distention. No carotid bruit. No lymph node enlargement. CARDIOVASCULAR SYSTEM: S1, S2 irregular. RESPIRATORY SYSTEM: Breath sounds diminished at the bases. No rhonchi. No crackles. ABDOMEN: Soft, non-tender. LEGS: No edema. No swelling. NERVOUS SYSTEM: No focal deficit. LABS: CBC within normal limits. CO2 is 19. Sodium is 140, potassium 4.3. Influenza swab is negative. ASSESSMENT: 1. Atrial fibrillation with fast ventricular rate, present on admission. 2. Possible short febrile viral illness. 3. Right neck pain and left-sided chest pain, possibly musculoskeletal. 4. Negative stress test. 5. Rheumatoid arthritis with deformities. 6. Hypothyroidism. 7. Bilateral cataracts. 8. History of hernia repair. 9. History of degenerative joint disease. 10. Remote history of nicotine dependence. 11. Obesity with body mass index of 38.7. RECOMMENDATIONS AND DISCUSSION: In this 76-year-old woman who presented with multiple medical issues, we will monitor the patient closely, adjust the medication, increase ambulation. Otherwise, closely monitor with Cardiology. Guarded prognosis. Further recommendations to follow.
[2016-04-29] MEDS: LEVOTHYROXINE 88 MCG TAB PO SCH (06:28)
[2016-04-29 06:43] LABS: Basophils % (A) 0 %; CH 30.1; CHCM 31.7; Eosinophils # (A) 0.1 k/uL (0-0.7); Eosinophils % (A) 2 %; HCT 41.8 % (34.0-46.0); HDW 2.54; HGB 13.3 gm/dL (11.4-16.0); Luc # (Auto) 0.16; Luc % (Auto) 3; Lymphocytes # (A) 0.7 k/uL (1.0-4.8); Lymphocytes % (A) 11 %; MCH 30.4 pg (25.0-35.0); MCHC 31.8 g/dL (31.0-37.0); MCV 95.5 fL (80.0-100.0); Mean Platelet Volume 7.9; Monocytes # (A) 0.6 k/uL (0-1.0); Monocytes % (A) 10 %; Neutrophils # (A) 4.6 k/uL (1.3-7.7); Neutrophils % (A) 75 %; RBC 4.37 m/uL (3.80-5.40); RDW 14.6 % (11.5-15.5); WBC 6.1 k/uL (3.8-10.6)
[2016-04-29 06:57] LABS: Anion Gap 9 mmol/L; Blood Urea Nitrogen 12 mg/dL (7-17); Calcium 8.7 mg/dL (8.4-10.2); Carbon Dioxide 22 mmol/L (22-30); Chloride 112 mmol/L (98-107); Glucose 104 mg/dL (74-99); Non-African American GFR(MDRD) >60 (>60 ml/min/1.73 sqM); Potassium 4.3 mmol/L (3.5-5.1); Sodium 143 mmol/L (137-145)
[2016-04-29] MEDS: MELOXICAM 7.5 MG TAB PO SCH (07:52)
[2016-04-29] MEDS: ATORVASTATIN 80 MG TAB PO SCH (07:52)
[2016-04-29] MEDS: APIXABAN 5 MG TAB PO SCH (07:52)
[2016-04-29] MEDS: METOPROLOL TARTRATE 50 MG TAB PO SCH (07:52)
[2016-04-29] MEDS: IPRATROPIUM BROMIDE 0.06% NASAL SPRAY (15 ML) EA NOSTRIL SCH (07:53)
[2016-04-29] MEDS: MULTIVITAMINS, THERA 1 EACH TAB PO SCH (07:53)
[2016-04-29] MEDS: predniSONE 5 MG TAB PO SCH (07:53)
[2016-04-29] MEDS: FOLIC ACID 1 MG TAB PO SCH (07:53)
[2016-04-29] MEDS: CHOLECALCIFEROL 1,000 UNIT TAB PO SCH (07:53)
[2016-04-29] MEDS: CALCIUM CARBONATE 500 MG CHEWABLE PO SCH (07:54)
[2016-04-29 08:02] VITALS: PULSE 104
[2016-04-29 11:36] VITALS: BP 132/71; TEMP 98.3
--- NOTE | 2016-04-29 13:09 | P.PN ---
Subjective Principal diagnosis: Atrial fibrillation This is a pleasant 76-year-old female with history of rheumatoid arthritis and hypothyroidism who presented to the hospital with new onset of atrial fibrillation. She also underwent a stress test this admission which was negative for any reversible ischemia. Patient continues to be in atrial fibrillation, rate under control. From cardiology standpoint, she should be able to be discharged home today. A follow-up appointment will be made with Dr. Reynolds in the office post discharge. Patient will be discharged home on Eliquis 5 mg by mouth twice a day along with med a prolonged 50 mg twice a day. Objective - Vital Signs Vital signs: Vital Signs Temp 98.3 F 04/29/16 11:33 Pulse 104 H 04/29/16 11:33 Resp 16 04/29/16 11:33 BP 132/71 04/29/16 11:33 Pulse Ox 96 04/29/16 11:33 Intake & Output 04/28/16 04/29/16 04/29/16 18:59 06:59 18:59 Intake Total 222 600 180 Balance 222 600 180 Weight 75.2 kg Intake: Oral 222 600 180 Other: Voiding Method Toilet Toilet Toilet # Voids 1 2 - Exam PHYSICAL EXAMINATION: HEENT: Head is atraumatic, normocephalic. Pupils equal, round. Neck is supple. There is no elevated jugular venous pressure. HEART EXAMINATION: S1 and S2 irregularly irregular CHEST EXAMINATION: Lungs are clear to auscultation and precussion. No chest wall tenderness is noted on palpation or with deep breathing. ABDOMEN: Soft, nontender. Bowel sounds are heard. No organomegaly noted. EXTREMITIES: 2+ peripheral pulses with no evidence of peripheral edema and no calf tenderness noted. NEUROLOGIC patient is awake, alert and oriented -3. . - Labs CBC & Chem 7: 04/29/16 06:09 04/29/16 06:09 Labs: Abnormal Lab Results - Last 24 Hours (Table) 04/29/16 04/29/16 Range/Units 06:09 06:09 Lymphocytes # 0.7 L (1.0-4.8) k/uL Chloride 112 H (98-107) mmol/L Glucose 104 H (74-99) mg/dL Assessment and Plan Plan: Assessment and Plan #1 Atrial fibrillation with rapid ventricular response, new onset, persistent. #2 hypothyroidism #3 symptoms of chest discomfort with radiation to the throat area, could be secondary to A. fib with RVR, initial troponin negative. #4 symptoms of mild shortness of breath, #5 rheumatoid arthritis Plan Echocardiogram with Doppler study revealed an ejection fraction of 55-60%. She may be able to be discharged home from cardiology's perspective to follow-up with Dr. Reynolds post discharge. We will continue Eliquis 5 mg one tablet by mouth twice a day along with her pa. DNP note has been reviewed, I agree with a documented findings and plan of care. Patient was seen and examined.
--- NOTE | 2016-04-30 09:20 | DS ---
DATE OF ADMISSION: 04/26/2016 DATE OF DISCHARGE: 04/29/2016 Patient is admitted secondary to atrial fibrillation. Patient is rate controlled. Patient was initiated on Eliquis and patient is being discharged today. Patient has new onset A. fib. Patient has normal ejection fraction. Patient was seen and examined on the day discharge. Vitals are stable. PHYSICAL EXAMINATION: GENERAL: The patient is alert and oriented x3, not in any acute distress. Well developed, well nourished. HEENT: Pupils are round and equally reacting to light. EOMI. No scleral icterus. No conjunctival pallor. Normocephalic, atraumatic. No pharyngeal erythema. No thyromegaly. CARDIOVASCULAR: S1 and S2 present. No murmurs, rubs, or gallops. PULMONARY: Chest is clear to auscultation, no wheezing or crackles. ABDOMEN: Soft, nontender, nondistended, normoactive bowel sounds. No palpable organomegaly. MUSCULOSKELETAL: No joint swelling or deformity. EXTREMITIES: No cyanosis, clubbing, or pedal edema. NEUROLOGICAL: Gross neurological examination did not reveal any focal deficits. SKIN: No rashes. FINAL DIAGNOSES: 1. New onset atrial fibrillation. 2. Mild wheezing bilaterally, although patient already has inhalers at home and is on low dose of systemic steroids. Patient may have asthma with minimal exacerbation. 3. Viral upper respiratory infection. 4. Rheumatoid arthritis. 5. Hypothyroidism. 6. Bilateral cataracts and hernia repair. 7. Morbid obesity. Patient is being discharged today in stable medical condition to home. Please refer to my depart summary for further details of discharge medications. Activity as tolerated. Cardiac diet. Patient will follow with Dr. Reynolds in [address] Jhonny Ryan in 3 to 7 days. Patient was initiated on apixaban. Atorvastatin was added to her regimen as well as metoprolol 50 p.o. b.i.d. Spent greater than 35 minutes in total discharge process. DISCHARGE DIET: Cardiac. Activity as tolerated.
[2016-05-02] MEDS ORDERED: METHOTREXATE SODIUM 2.5 MG TAB PO SCH (09:00)
== END 2016-04-29 14:53 | disposition home or self-care (01) | DRG 310 ==
LOC: EC 11:40 → 6SEL 14:02
PROVIDERS: ADMIT Internal Medicine; ATTEND Internal Medicine
DX: I48.1 Persistent atrial fibrillation (principal); E66.01 Morbid (severe) obesity due to excess calories; J44.9 Chronic obstructive pulmonary disease, unspecified; M06.9 Rheumatoid arthritis, unspecified; E03.9 Hypothyroidism, unspecified; H26.9 Unspecified cataract; M19.90 Unspecified osteoarthritis, unspecified site; M54.2 Cervicalgia; R07.89 Other chest pain; J06.9 Acute upper respiratory infection, unspecified; J45.909 Unspecified asthma, uncomplicated; Z68.38 Body mass index [BMI] 38.0-38.9, adult; Z87.891 Personal history of nicotine dependence; Z85.819 Personal history of malignant neoplasm of unspecified site of lip, oral cavity, and pharynx; Z79.52 Long term (current) use of systemic steroids; Z79.899 Other long term (current) drug therapy; Z88.1 Allergy status to other antibiotic agents; Z88.8 Allergy status to other drugs, medicaments and biological substances
CPT/HCPCS: 36415; 71020; 78452; 80048; 80053; 80061; 81001; 82550; 82553; 83605; 83735; 83880; 84100; 84439; 84443; 84484; 85025; 85379; 85610; 85730; 87040; 87086; 87502; 93005; 93017; 93306; 96361; 96374; 96375; 99291

== ENCOUNTER 2016-05-10 02:55 | Inpatient (IN) | payer MEDICARE, BC ==
[2016-05-10] MEDS ORDERED: DILTIAZEM 125 MG in SODIUM CHLORIDE 0.9% 100 ML IV ONE (03:28)
[2016-05-10] MEDS ORDERED: DILTIAZEM 5 MG/ML 5 ML VIAL IVP STA (03:28)
--- NOTE | 2016-05-10 03:32 | ED ---
Chest Pain HPI - General Chief Complaint: Chest Pain Stated Complaint: Chest Pain Time Seen by Provider: 05/10/16 03:02 Source: patient, EMS, RN notes reviewed Mode of arrival: EMS Limitations: no limitations - History of Present Illness MD Complaint: chest pain -: hour(s) Onset: awoke with symptoms Pain Location: substernal Pain Radiation: none Severity: moderate Quality: other (She describes as an indigestion feeling) Consistency: constant Improves With: nothing Worsens With: nothing Anginal Symptoms: dyspnea Treatments Prior to Arrival: aspirin, nitroglycerin, oxygen - Related Data Home Medications Medication Instructions Recorded Confirmed Calcium Carbonate [Calcium] 1,200 mg PO AC-LUNCH 04/26/16 04/26/16 Cholecalciferol [Vitamin D3] 4,000 unit PO AC-LUNCH 04/26/16 04/26/16 Fish Oil 300mg 600 mg PO AC-LUNCH 04/26/16 04/26/16 Folic Acid 1 mg PO DAILY 04/26/16 04/26/16 Ipratropium Fleming 0.06%Nasal 1 spray EA NOSTRIL DAILY 04/26/16 04/26/16 [Atrovent Nasal] Levothyroxine Sodium [Synthroid] 88 mcg PO DAILY 04/26/16 04/26/16 Meloxicam [Mobic] 15 mg PO DAILY 04/26/16 04/26/16 Methotrexate Sodium [Methotrexate] 15 mg PO GALVAN 04/26/16 04/26/16 Multivitamins, Thera [Multivitamin] 1 tab PO AC-LUNCH 04/26/16 04/26/16 predniSONE 5 mg PO DAILY 04/26/16 04/26/16 Previous Rx's Medication Instructions Recorded Apixaban [Eliquis] 5 mg PO BID #60 tab 04/29/16 Atorvastatin [Lipitor] 80 mg PO DAILY #30 tab 04/29/16 Metoprolol Tartrate [Lopressor] 50 mg PO BID #60 tab 04/29/16 Allergies Allergy/AdvReac Type Severity Reaction Status Date / Time erythromycin base Allergy Unknown Verified 04/26/16 13:23 infliximab [From Remicade] Allergy Unknown Verified 04/26/16 13:23 Review of Systems ROS Statement: Those systems with pertinent positive or pertinent negative responses have been documented in the HPI. ROS Other: All systems not noted in ROS Statement are negative. Constitutional: Denies: fever, chills ENT: Denies: throat pain Respiratory: Reports: dyspnea. Denies: cough, wheezes, hemoptysis Cardiovascular: Reports: chest pain, palpitations. Denies: orthopnea, edema, syncope Gastrointestinal: Denies: abdominal pain, nausea, vomiting Genitourinary: Denies: dysuria Musculoskeletal: Denies: back pain Skin: Denies: rash Neurological: Denies: headache, weakness, numbness EKG Findings - EKG Results: EKG: interpreted by ERMD, normal axis EKG shows: atrial fibrillation (With rate approximately 130 bpm) - Blocks, [place], Hypertrophy, ST Abn: Repolarization changes or abnormalities: nonspecific abnormality, ST segment, and/or T wave Past Medical History Past Medical History: Atrial Fibrillation, Hyperlipidemia, Rheumatoid Arthritis (RA), Thyroid Disorder Additional Past Medical History / Comment(s): Pt states she was recently on ABX for URI. 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 History of Any Multi-Drug Resistant Organisms: None Reported Past Surgical History: Hernia Repair, Hysterectomy, Orthopedic Surgery Additional Past Surgical History / Comment(s): eye surgery Past Anesthesia/Blood Transfusion Reactions: No Reported Reaction Past Psychological History: No Psychological Hx Reported Additional Psychological History / Comment(s): Pt resides with her spouse of 58yrs. She uses no device. She has not driven lately due to her eyesight. Smoking Status: Former smoker Past Alcohol Use History: None Reported Additional Past Alcohol Use History / Comment(s): Pt started smoking in 1 and quit about 1996. Past Drug Use History: None Reported - Past Family History Mother History Unknown: Yes Additional Family Medical History / Comment(s): Mother when pt was born. Father Additional Family Medical History / Comment(s): Father at the age of 83yrs from heart disease. General Exam General appearance: alert, in no apparent distress, obese Head exam: Present: atraumatic, normocephalic Eye exam: Present: normal appearance. Absent: scleral icterus, conjunctival injection ENT exam: Present: mucous membranes dry Neck exam: Present: normal inspection Respiratory exam: Present: wheezes (There is a trace expiratory wheeze). Absent : respiratory distress, rales, rhonchi, stridor, decreased breath sounds, prolonged expiratory Cardiovascular Exam: Present: tachycardia, irregular rhythm, normal heart sounds. Absent: systolic murmur, diastolic murmur, rubs, gallop GI/Abdominal exam: Present: soft. Absent: distended, tenderness, guarding, rebound, mass Extremities exam: Present: normal inspection, normal capillary refill. Absent: pedal edema, calf tenderness Back exam: Present: normal inspection. Absent: CVA tenderness (R), CVA tenderness (L) Neurological exam: Present: alert Skin exam: Present: warm, dry, intact, normal color. Absent: rash Course Vital Signs 05/10/16 05/10/16 05/10/16 03:24 03:54 04:35 Temperature 97 F L Pulse Rate 133 H 82 85 Respiratory 18 16 16 Rate Blood Pressure 183/91 149/73 O2 Sat by Pulse 99 97 98 Oximetry Disposition Clinical Impression: Atrial fibrillation with RVR Disposition: ADMITTED IP TO THIS HOSP Condition: Fair
[2016-05-10 03:51] LABS: Basophils % (A) 0 %; CH 30.5; CHCM 32.3; Eosinophils # (A) 0.2 k/uL (0-0.7); Eosinophils % (A) 2 %; HCT 42.2 % (34.0-46.0); HDW 2.71; HGB 13.5 gm/dL (11.4-16.0); Luc # (Auto) 0.12; Luc % (Auto) 1; Lymphocytes # (A) 1.2 k/uL (1.0-4.8); Lymphocytes % (A) 11 %; MCH 30.4 pg (25.0-35.0); MCHC 32.1 g/dL (31.0-37.0); MCV 94.8 fL (80.0-100.0); Mean Platelet Volume 7.6; Monocytes # (A) 0.6 k/uL (0-1.0); Monocytes % (A) 5 %; Neutrophils # (A) 8.5 k/uL (1.3-7.7); Neutrophils % (A) 81 %; RBC 4.45 m/uL (3.80-5.40); RDW 14.8 % (11.5-15.5); WBC 10.5 k/uL (3.8-10.6); WBC (Perox) 10.37
[2016-05-10 04:00] LABS: Anion Gap 10 mmol/L; Blood Urea Nitrogen 20 mg/dL (7-17); Calcium 8.6 mg/dL (8.4-10.2); Carbon Dioxide 24 mmol/L (22-30); Chloride 110 mmol/L (98-107); Glucose 90 mg/dL (74-99); Non-African American GFR(MDRD) >60 (>60 ml/min/1.73 sqM); Sodium 144 mmol/L (137-145); Total Bilirubin 0.7 mg/dL (0.2-1.3)
[2016-05-10 04:01] LABS: ALT 36 U/L (9-52); AST 35 U/L (14-36); Alkaline Phosphatase 56 U/L (38-126); Magnesium 1.8 mg/dL (1.6-2.3); Total Protein 5.9 g/dL (6.3-8.2)
[2016-05-10 04:15] LABS: Creatine Kinase 42 U/L (30-135)
[2016-05-10 04:27] LABS: Troponin I <0.012 ng/mL (0.000-0.034)
[2016-05-10 04:28] LABS: Creatine Kinase MB 0.9 ng/mL (0.0-2.4)
--- NOTE | 2016-05-10 05:04 | XR ---
INDICATION: Chest pain COMPARISON: CXR 04/26/16 FINDING: A single frontal view of the chest is provided. There is stable hyperinflation compatible with COPD. There is stable cardiomegaly. Pulmonary vascularity is normal. There is no consolidation, effusion, or pneumothorax. Regional skeleton is intact. IMPRESSION: No significant interval change. Stable cardiomegaly and COPD. No radiographic evidence of acute cardiopulmonary disease.
[2016-05-10] MEDS ORDERED: ACETAMINOPHEN TAB 325 MG TAB PO STA (05:08)
[2016-05-10 05:37] LABS: Glucose,Whole Blood 98 mg/dL (75-99)
[2016-05-10 05:58] VITALS: BMI 29.5
[2016-05-10] MEDS: LEVOTHYROXINE 88 MCG TAB PO SCH (06:20)
[2016-05-10] MEDS: MAGNESIUM SULFATE-D5W PMX 1 GM in DEXTROSE/WATER 1 100ML.BAG IVPB SCH ×2 (07:53→08:59)
[2016-05-10] MEDS: ATORVASTATIN 80 MG TAB PO SCH (08:59)
[2016-05-10] MEDS: predniSONE 5 MG TAB PO SCH (08:59)
[2016-05-10] MEDS: METOPROLOL TARTRATE 50 MG TAB PO SCH ×2 (08:59→20:31)
[2016-05-10] MEDS: IPRATROPIUM BROMIDE 0.06% NASAL SPRAY (15 ML) EA NOSTRIL SCH (08:59)
[2016-05-10] MEDS ORDERED: APIXABAN 5 MG TAB PO SCH (09:00)
[2016-05-10] MEDS ORDERED: MELOXICAM 7.5 MG TAB PO SCH (09:00)
[2016-05-10 11:01] LABS: Creatine Kinase 21 U/L (30-135)
[2016-05-10 11:14] LABS: Creatine Kinase MB 0.6 ng/mL (0.0-2.4); Troponin I <0.012 ng/mL (0.000-0.034)
[2016-05-10] MEDS: FOLIC ACID 1 MG TAB PO SCH (12:38)
[2016-05-10] MEDS: MULTIVITAMINS, THERA 1 EACH TAB PO SCH (12:39)
[2016-05-10] MEDS: CHOLECALCIFEROL 1,000 UNIT TAB PO SCH (12:39)
[2016-05-10] MEDS: CALCIUM CARBONATE 500 MG CHEWABLE PO SCH (12:39)
[2016-05-10] MEDS: FAMOTIDINE 20 MG TAB PO SCH ×2 (13:56→20:31)
--- NOTE | 2016-05-10 14:53 | HP ---
DATE OF ADMISSION: Patient has known history of atrial fibrillation, came in with complaints of chest pressure-like sensation, substernal. Denied any lightheadedness, denied any diaphoresis. Denied any nausea or vomiting with normal troponin. Patient was found to be in atrial fibrillation. Patient was started on Cardizem. Patient is on 25 b.i.d. of metoprolol at home and patient complains of some symptoms in the epigastric area consistent with ( ) because of which we have started her on Pepcid. Patient denied any fever, chills. Patient denied any cough, runny nose, dysuria. REVIEW OF SYSTEMS: CARDIOVASCULAR: As described in HPI. GASTROINTESTINAL: As described in HPI. CONSTITUTIONAL: No fever, no malaise, no fatigue. HEENT: No recent visual problems or hearing problems. Denied any sore throat. PULMONARY: No shortness of breath, no cough, no hemoptysis. NEUROLOGICAL: No headaches, no weakness, no numbness. HEMATOLOGICAL: Denies any bleeding or petechiae. GENITOURINARY: Denies any burning micturition, frequency, or urgency. MUSCULOSKELETAL/RHEUMATOLOGICAL: Denies any joint pain, swelling, or any muscle pain. ENDOCRINE: Denies any polyuria or polydipsia. The rest of the 14 point review of systems is negative. Home medications include: 1. Calcium carbonate. 2. Cholecalciferol. 3. Fish oil. 4. Folic acid. 5. Ipratropium. 6. Levothyroxine. 7. Meloxicam. 8. Methotrexate. 9. Multivitamins. 10. Prednisone. 11. Patient also takes apixaban. 12. Atorvastatin. 13. Metoprolol. ALLERGIES: Allergic to ERYTHROMYCIN, INFLIXIMAB. Past medical history significant for atrial fibrillation, hyperlipidemia, rheumatoid arthritis, hypothyroidism. Patient has normal ejection fraction in the previous echocardiogram, hernia repair, hysterectomy, orthopedic surgery. SOCIAL HISTORY: Former smoker. Quit smoking in 1996. Denied any alcohol abuse or any drug abuse. FAMILY HISTORY: Mother when patient was born. Father at age 83 from heart disease. PHYSICAL EXAMINATION: Temperature 97.9, pulse of 55, respiratory rate of 18, blood pressure is 110/66, saturating at 96% on 2 L of O2 by nasal cannula. GENERAL: The patient is alert and oriented x3, not in any acute distress. Well developed, well nourished. HEENT: Pupils are round and equally reacting to light. EOMI. No scleral icterus. No conjunctival pallor. Normocephalic, atraumatic. No pharyngeal erythema. No thyromegaly. CARDIOVASCULAR: S1 and S2 present. No murmurs, rubs, or gallops. PULMONARY: Chest is clear to auscultation, no wheezing or crackles. ABDOMEN: Soft, nontender, nondistended, normoactive bowel sounds. No palpable organomegaly. MUSCULOSKELETAL: No joint swelling or deformity. EXTREMITIES: No cyanosis, clubbing, or pedal edema. NEUROLOGICAL: Gross neurological examination did not reveal any focal deficits. SKIN: No rashes. LABORATORY DATA: CBC, CMP, essentially within normal limits. TSH is high, I will obtain a T4 level. Patient may have sick euthyroid syndrome and chest x-ray did not show any pneumonic process. ASSESSMENT AND PLAN: 1. Atrial fibrillation, precipitating factor for her atrial fibrillation is unknown and her chest pain is probably related to atrial fibrillation. Does not appear to have any acute coronary issue. Cardiology was consulted. Patient is on Cardizem drip, which is being tapered down. Patient is on Eliquis which will be continued. 2. Rheumatoid arthritis. 3. Hypothyroidism. Patient's TSH is elevated but I will not increase levothyroxine because of her atrial fibrillation. This needs to be repeated again in about a month. Patient probably had sick euthyroid syndrome. T4 will be obtained. 4. Bilateral cataracts. 5. History of hernia repair. 6. Degenerative joint disease. 7. Nicotine dependence. 8. Morbid obesity. 9. Gastroesophageal reflux disease. PLAN: 1. Continue with Eliquis. 2. Also includes gastroesophageal reflux disease. Mobic will be discontinued and patient will be started on Pepcid. Plan is to taper down Cardizem. Cardiology evaluation. Patient possibly will need oral Cardizem. Continue to monitor.
[2016-05-10] MEDS ORDERED: PROPAFENONE 150 MG TAB PO ONE (16:00)
--- NOTE | 2016-05-10 16:54 | CONS ---
Mrs. Martino is a 76-year-old female who is seen for cardiac evaluation. This patient's medical records are reviewed. Patient recently was admitted with chest pain and shortness of breath and the patient was found to be in atrial fibrillation with a rapid ventricular response. Patient was subsequently treated with Lopressor with a controlled rate. Patient did undergo a dobutamine echocardiogram, and the echocardiographic study was not suggestive of ischemia. The patient was discharged home on medical treatment. Patient again had an episode of substernal chest discomfort which she describes as sharp, but heaviness in the chest was moderate to severe. It did not radiate to the arm, neck or jaw. It was not associated with any nausea, vomiting or sweating. Patient was found to be in atrial fibrillation with a rapid ventricular response and the patient was admitted with a Cardizem drip. Her rate is controlled now. Patient's home medications include: 1. Vitamin D3. 2. Calcium. 3. Folic acid. 4. Synthroid. 5. Mobic. 6. Methotrexate. 7. Apixaban 5 mg b.i.d. 8. Lopressor 50 mg b.i.d. Review of systems is otherwise unremarkable. Physical examination at present reveals a 76-year-old female who does not appear to be in any acute distress. The heart rate is now 60 to 70 per minute. Blood pressure is 110/60 mmHg. Head/ENT examination is negative. Neck is supple. There is no increase in jugular venous pressure. Both the carotid pulses are felt. There is no bruit. Chest is symmetrical. HEART: The PMI is not felt. First and second heart sounds are normal. Lungs are clinically clear to auscultation and percussion. Abdomen is soft. Liver and spleen are not enlarged. EXTREMITIES: Peripheral pulsations are not very well felt. Initial EKG showed atrial fibrillation with a rapid ventricular response. The rate is controlled now. Patient's 2 sets of cardiac enzymes are normal. Patient had a Lexiscan Cardiolite study which did not show any perfusion abnormality to suggest stress-induced ischemia. FINAL IMPRESSION: This patient is admitted with recurrent episodes of chest discomfort and patient has atrial fibrillation with rapid ventricular rate. I am not exactly sure whether patient is having ischemic pain which leads to the atrial fibrillation with rapid ventricular rate or atrial fibrillation causes chest pain. There is no evidence of any yoz-RF-autthsq-elevation myocardial infarction. In view of the recurrent episodes of admissions with chest pain, patient is advised a diagnostic cardiac catheterization for definitive diagnosis. The procedure and risks were fully explained to the patient. I will try the patient on Rythmol to see whether I can convert the patient to normal sinus rhythm. We will discontinue Eliquis and consider cardiac catheterization in the next 48 hours.
[2016-05-10 17:33] LABS: Creatine Kinase 96 U/L (30-135)
[2016-05-10 17:47] LABS: Creatine Kinase MB 1.4 ng/mL (0.0-2.4); Troponin I <0.012 ng/mL (0.000-0.034)
[2016-05-10] MEDS: ACETAMINOPHEN TAB 325 MG TAB PO PRN (22:55)
[2016-05-10] MEDS: PROPAFENONE 150 MG TAB PO SCH (22:55)
[2016-05-11] MEDS: NITROGLYCERIN SL TABS 0.4 MG TAB SUBLINGUAL PRN ×2 (05:26→05:37)
[2016-05-11] MEDS: LEVOTHYROXINE 88 MCG TAB PO SCH (05:55)
[2016-05-11 06:31] LABS: CH 30.2; CHCM 31.7; HDW 2.57; HGB 13.1 gm/dL (11.4-16.0); Hypochromasia Slight; MCH 30.5 pg (25.0-35.0); MCHC 31.8 g/dL (31.0-37.0); MCV 95.8 fL (80.0-100.0); Mean Platelet Volume 7.6; RBC 4.28 m/uL (3.80-5.40); RDW 14.8 % (11.5-15.5); WBC 6.1 k/uL (3.8-10.6)
[2016-05-11 06:51] LABS: Anion Gap 6 mmol/L; Blood Urea Nitrogen 15 mg/dL (7-17); Calcium 8.5 mg/dL (8.4-10.2); Carbon Dioxide 27 mmol/L (22-30); Chloride 109 mmol/L (98-107); Cholesterol 86 mg/dL (<200); Glucose 100 mg/dL (74-99); HDL Cholesterol 51 mg/dL (40-60); Magnesium 2.2 mg/dL (1.6-2.3); Non-African American GFR(MDRD) >60 (>60 ml/min/1.73 sqM); Potassium 4.5 mmol/L (3.5-5.1); Sodium 142 mmol/L (137-145); Triglycerides 60 mg/dL (<150)
[2016-05-11] MEDS: ASPIRIN 325 MG TAB PO SCH (08:50)
[2016-05-11] MEDS: PROPAFENONE 150 MG TAB PO SCH ×3 (08:50→23:08)
[2016-05-11] MEDS: FAMOTIDINE 20 MG TAB PO SCH ×2 (08:50→20:35)
[2016-05-11] MEDS: ATORVASTATIN 80 MG TAB PO SCH (08:50)
[2016-05-11] MEDS: IPRATROPIUM BROMIDE 0.06% NASAL SPRAY (15 ML) EA NOSTRIL SCH (08:51)
[2016-05-11] MEDS: METOPROLOL TARTRATE 50 MG TAB PO SCH ×2 (08:51→20:35)
[2016-05-11] MEDS: predniSONE 5 MG TAB PO SCH (08:52)
[2016-05-11] MEDS: CHOLECALCIFEROL 1,000 UNIT TAB PO SCH (13:28)
[2016-05-11] MEDS: MULTIVITAMINS, THERA 1 EACH TAB PO SCH (13:30)
[2016-05-11] MEDS: CALCIUM CARBONATE 500 MG CHEWABLE PO SCH (13:30)
[2016-05-11] MEDS: FOLIC ACID 1 MG TAB PO SCH (13:30)
[2016-05-11] MEDS ORDERED: SODIUM CHLORIDE 0.9% 1,000 ML in EMPTY BAG 1 BAG IV ONE (14:37)
[2016-05-11] MEDS ORDERED: ATORVASTATIN 80 MG TAB PO STA (14:37)
[2016-05-11] MEDS ORDERED: ALPRAZolam 0.5 MG TAB PO PRN (14:37)
[2016-05-11] MEDS ORDERED: NITROGLYCERIN SL TABS 0.4 MG TAB SUBLINGUAL PRN (14:37)
[2016-05-11] MEDS ORDERED: ASPIRIN 325 MG TAB PO STA (14:37)
[2016-05-11] MEDS ORDERED: ALPRAZolam 0.25 MG TAB PO PRN (14:37)
--- NOTE | 2016-05-11 16:40 | P.PN ---
Subjective Principal diagnosis: Chest pain and atrial fibrillation This is a pleasant 76-year-old female with history of rheumatoid arthritis, hypothyroidism, atrial fibrillation, who was recently in the hospital with symptoms of chest pain and associated shortness of breath. Patient was found at that time to be in atrial fibrillation with rapid ventricular response, subsequently was treated with Lopressor to control the heart rate. She underwent a Lexiscan which was negative for any reversible ischemia. She presents again to the hospital on this occasion with symptoms of substernal chest discomfort with associated chest heaviness and radiation to the jaw. She was found to be in atrial fibrillation with rapid ventricular response and admitted with Cardizem drip. She was seen in consultation yesterday by Dr. VC Reynoso and initiated on Rythmol. Her Eliquis has currently been placed on hold and patient has been recommended to undergo cardiac catheterization tomorrow for more definitive diagnosis. Risks and benefits were explained to the patient in detail, this will be performed 7:[address] Reynolds. Objective - Vital Signs Vital signs: Vital Signs Temp 97.2 F L 05/11/16 11:21 Pulse 84 05/11/16 11:21 Resp 22 05/11/16 11:21 BP 108/82 05/11/16 11:21 Pulse Ox 99 05/11/16 08:00 Intake & Output 05/10/16 05/11/16 05/11/16 18:59 06:59 18:59 Intake Total 285 360 600 Output Total 400 Balance 285 360 200 Weight 74 kg Intake: IV 85 0.9 80 Diltiazem 125 mg In 5 Sodium Chloride 0.9% 100 ml @ 5 MG/HR 5 mls/hr IV .Q24H ONE Rx#:[id number] Intake, IV Titration 200 Amount Magnesium Sulfate-D5w Pmx 200 1 gm In Dextrose/Water 1 100ml.bag @ 100 mls/hr IVPB Q1H NEGRO Rx#: [id number] Oral 360 600 Output: Urine 400 Other: Voiding Method Bedside Commode Bedside Commode Toilet # Voids 1 2 2 - Exam PHYSICAL EXAMINATION: HEENT: Head is atraumatic, normocephalic. Pupils equal, round. Neck is supple. There is no elevated jugular venous pressure. HEART EXAMINATION: Heart S1 and S2 irregularly irregular CHEST EXAMINATION: Lungs are clear to auscultation and precussion. No chest wall tenderness is noted on palpation or with deep breathing. ABDOMEN: Soft, nontender. Bowel sounds are heard. No organomegaly noted. EXTREMITIES: 2+ peripheral pulses with no evidence of peripheral edema and no calf tenderness noted. NEUROLOGIC patient is awake, alert and oriented -3. . - Labs CBC & Chem 7: 05/11/16 06:14 05/11/16 06:14 Labs: Abnormal Lab Results - Last 24 Hours (Table) 05/11/16 Range/Units 06:14 Chloride 109 H (98-107) mmol/L Glucose 100 H (74-99) mg/dL Assessment and Plan (1) Chronic a-fib Status: Acute (2) Chest pain Status: Acute (3) Hypothyroid Status: Acute (4) Shortness of breath Status: Acute (5) Rheumatoid arthritis Status: Acute Plan: Patient will be scheduled undergo cardiac catheterization tomorrow by Dr. Reynolds , the risks and the benefits were explained to her in detail and she is willing to proceed. This will be performed at 7:30 tomorrow morning. DNP note has been reviewed, I agree with a documented findings and plan of care. Patient was seen and examined.
--- NOTE | 2016-05-11 18:54 | P.PN ---
Subjective Date of service 05/11/2016 Progress note being dictated for Dr. Bright Interval history: This is a 76-year-old female admitted with chest pain, atrial fibrillation with RVR and multiple other medical issues. Cardizem drip weaned off, currently on Rythmol, metoprolol. Telemetry with atrial fibrillation, heart rates better controlled. Earlier this morning had a episode of chest pain located at the base of the throat, level of morro radiating to bilateral sides of neck, greater on the right lasting greater than half an hour, relieved by 2 nitroglycerin s. Further evaluated by cardiology, NOW on hold and patient is scheduled for cardiac cath tomorrow. Objective - Vital Signs Vital signs: Vital Signs Temp 97.2 F L 05/11/16 11:21 Pulse 84 05/11/16 11:21 Resp 22 05/11/16 11:21 BP 108/82 05/11/16 11:21 Pulse Ox 99 05/11/16 08:00 Intake & Output 05/10/16 05/11/16 05/11/16 18:59 06:59 18:59 Intake Total 285 360 600 Output Total 400 Balance 285 360 200 Weight 74 kg Intake: IV 85 0.9 80 Diltiazem 125 mg In 5 Sodium Chloride 0.9% 100 ml @ 5 MG/HR 5 mls/hr IV .Q24H ONE Rx#:[id number] Intake, IV Titration 200 Amount Magnesium Sulfate-D5w Pmx 200 1 gm In Dextrose/Water 1 100ml.bag @ 100 mls/hr IVPB Q1H NEGRO Rx#: [id number] Oral 360 600 Output: Urine 400 Other: Voiding Method Bedside Commode Bedside Commode Toilet # Voids 1 2 2 - Exam PHYSICAL EXAM: VITAL SIGNS: As above GENERAL: [Sitting up in bed, no acute distress] HEENT: [Pupils equal conjunctiva normal.] NECK: [Supple, no JVD] RESPIRATORY EFFORT:[Normal] LUNGS: [Clear to auscultation, no wheezes crackles or rhonchi] CARDIOVASCULAR[irregular, no murmurs rubs or gallops, trace edema] GI: [Abdomen soft, nontender, positive bowel sounds.] PSYCH: [Alert and oriented -3, mood and affect normal.] NEURO: No focal deficits - Labs CBC & Chem 7: 05/11/16 06:14 05/11/16 06:14 Labs: Abnormal Lab Results - Last 24 Hours (Table) 05/11/16 Range/Units 06:14 Chloride 109 H (98-107) mmol/L Glucose 100 H (74-99) mg/dL Assessment and Plan Plan: 1. [Atrial fibrillation with RVR 2. [Chest pain, rule out acute coronary syndrome]. 3. [Rheumatoid arthritis]. 4. [Hypothyroidism]. 5. [Bilateral cataracts]. 6. [History of hernia repair]. 7. [Degenerative joint disease]. 8. Nicotine dependence 9. Obesity, BMI 28.9 10. Gastroesophageal reflux disease Plan: Continue on current medication regime , beta pa, monitoring and symptomatic treatment. Antiarrhythmics as per cardiology. Eliquis is on hold, as mentioned above patient is scheduled for cardiac catheterization tomorrow. Further recommendations to follow. The impression and plan of care has been dictated as directed. : I performed a H&P examination of this patient and discussed the same with the dictator. I agree with the dictator's note. Any additional findings/opinions/ etc. will be noted.
[2016-05-11] MEDS: ACETAMINOPHEN TAB 325 MG TAB PO PRN (23:08)
[2016-05-12 05:06] LABS: Glucose,Whole Blood 94 mg/dL (75-99)
[2016-05-12] MEDS: LEVOTHYROXINE 88 MCG TAB PO SCH (05:48)
[2016-05-12] MEDS: PROPAFENONE 150 MG TAB PO SCH (05:48)
[2016-05-12] MEDS: ATORVASTATIN 80 MG TAB PO SCH (05:49)
[2016-05-12] MEDS: ASPIRIN 325 MG TAB PO SCH (05:49)
[2016-05-12] MEDS: FAMOTIDINE 20 MG TAB PO SCH (05:49)
[2016-05-12] MEDS: METOPROLOL TARTRATE 50 MG TAB PO SCH (05:49)
[2016-05-12] MEDS: predniSONE 5 MG TAB PO SCH (05:49)
[2016-05-12] MEDS ORDERED: fentaNYL (PF) 50 MCG/ML 2 ML AMP ONE (07:29)
[2016-05-12] MEDS ORDERED: diphenhydrAMINE 50 MG/ML 1 ML VIAL ONE (07:29)
[2016-05-12] MEDS ORDERED: IV FLUID CONTINUATION 100 ML IV ONE (07:39)
[2016-05-12] MEDS ORDERED: diphenhydrAMINE 50 MG/ML 1 ML VIAL IVP ONE (07:43)
[2016-05-12] MEDS ORDERED: fentaNYL (PF) 50 MCG/ML 2 ML AMP IV ONE (07:43)
[2016-05-12] MEDS ORDERED: LIDOCAINE 2% INJ 20 MG/ML SQ ONE (07:46)
[2016-05-12] MEDS ORDERED: IOHEXOL 350 MG/ML 100 ML BOTTLE INJ ONE (07:59)
[2016-05-12] MEDS ORDERED: RX INFO: IV CONTRAST WAS GIVEN 1 EACH MISC MISCELLANE PRN (08:10)
[2016-05-12] MEDS ORDERED: SODIUM CHLORIDE 0.9% 1,000 ML IV SCH (08:15)
[2016-05-12 09:03] VITALS: RESP 18
--- NOTE | 2016-05-12 09:10 | CC ---
DATE OF SERVICE: Mrs. Martino is a 76-year-old female with known history of rheumatoid arthritis who presented about 10 days ago with finding of atrial fibrillation of unknown duration. At that time, she had chest discomfort and nuclear scan revealed no evidence of inducible ischemia. She came in again to the hospital with symptoms of chest discomfort. Her cardiac enzymes were unremarkable. Because of persistent symptoms and after evaluation by Dr. Reynoso, recommendation was made regarding cardiac catheterization. The procedure as well as risks and complications were discussed with the patient who is in full understanding and agreement. PROCEDURE: The patient was brought to the offset label rewinder in a fasting, semi-sedated state after receiving fentanyl and Benadryl and achieving moderate conscious sedation. Using Xylocaine anesthesia in the Seldinger technique, a 6-Kazakh sheath was introduced in the right femoral artery. Selective right and left coronary angiography performed using 6-Kazakh right and left Thelma catheter. Multiple views of the coronary arteries including hemiaxial views were obtained. Following that, a 6-Kazakh tight pigtail catheter was introduced in the left ventricle and a 30-degree MELÉNDEZ view of the left ventricle was obtained. Following that, catheter and sheath were removed. Hemostasis was obtained with deployment of an Angio-Seal. There were no immediate complications. The patient was returned to the room in stable condition. FINDINGS: FLUOROSCOPY: There is severe calcification involving the mitral annulus. LEFT MAIN: This is a large-size vessel bifurcating into left circumflex and left anterior descending artery. Left main coronary artery is without any significant obstructive coronary artery disease. LEFT ANTERIOR DESCENDING ARTERY: This is a large-sized vessel reaching towards the apex with a wrap around apex segment. The left anterior descending artery has mild intimal disease 10% to 20% without any evidence of high-grade stenosis. LEFT CIRCUMFLEX: This is a nondominant vessel, giving rise to a moderately sized obtuse marginal branch. The second and third obtuse marginal branches are small in caliber. The left circumflex as well as branch branches have no evidence obstructive coronary artery disease. RIGHT CORONARY ARTERY: This is a large dominant vessel bifurcating into PDA and posterolateral segment and branches. The right coronary artery in mid segment has 10% to 20% plaque. The rest of the vessel has no high-grade stenosis. LEFT VENTRICULOGRAM: The left ventriculogram was performed in 30-degree MELÉNDEZ view and revealed normal left ventricular size and systolic function. Ejection fraction is 60%. There was no significant mitral regurgitation. HEMODYNAMICS: There was no gradient across the aortic valve. The left ventricle end-diastolic pressure was 16 to 18 mmHg. CONCLUSION: 1. Mild coronary artery disease involving the left anterior descending artery and the right coronary artery. 2. Normal left ventricular size and systolic function. RECOMMENDATIONS: In view of the finding anatomy, I recommend continue medical therapy with aggressive coronary risk modifications being initiated. Those findings and recommendations were discussed with the patient and her family and are in full understanding and agreement. HERRERA
--- NOTE | 2016-05-12 09:14 | LTR ---
May 12, 2016 NICOLE RYAN DO RE: Michelle Martino Yadira Dear Dr. Ryan: I had the opportunity to perform cardiac catheterization on Mrs. Martino at [facility] on the 12 of May and a full copy of the procedure note will be forwarded to you. In brief, she was found to have mild intimal disease without any evidence of high-grade stenosis and based on those findings, I recommended continue medical therapy with aggressive coronary risk modifications being initiated. Thank you again for allowing me the opportunity to participate in her care. Please feel free to call for any questions. Sincerely yours, MARNIE MANRIQUE MD
[2016-05-12] MEDS: CALCIUM CARBONATE 500 MG CHEWABLE PO SCH (12:04)
[2016-05-12] MEDS: CHOLECALCIFEROL 1,000 UNIT TAB PO SCH (12:04)
[2016-05-12] MEDS: MULTIVITAMINS, THERA 1 EACH TAB PO SCH (12:04)
[2016-05-12] MEDS: FOLIC ACID 1 MG TAB PO SCH (12:04)
[2016-05-12] MEDS: IPRATROPIUM BROMIDE 0.06% NASAL SPRAY (15 ML) EA NOSTRIL SCH (12:09)
[2016-05-12 16:24] VITALS: BP 131/86; PULSE 108; TEMP 97.4
--- NOTE | 2016-05-12 17:11 | P.DS ---
Providers Date of admission: 05/10/16 05:10 Expected date of discharge: 05/12/16 Attending physician: Sanjay Bright Consults: Dr. VC Reynoso, Cardiology Primary care physician: Jhonny Ryan [facility] Course: Final Diagnoses: 1. [Atrial fibrillation with RVR 2. [Chest pain, rule out acute coronary syndrome]. Status post cardiac cath reporting mild CAD involving the LAD and RCA without high-grade stenosis and with normal LV function. Maximizing medical therapy. 3. [Rheumatoid arthritis]. 4. [Hypothyroidism]. 5. [Bilateral cataracts]. 6. [History of hernia repair]. 7. [Degenerative joint disease]. 8. Nicotine dependence 9. Obesity, BMI 28.9 10. Gastroesophageal reflux disease Hospital course:This is a 76-year-old female admitted with chest pain, atrial fibrillation with RVR and multiple other medical issues. Initial EKG showed atrial fibrillation with RVR, cardiac enzymes 2 normal. Underwent a Lexiscan Cardiolite study which failed to show any perfusion abnormality. Initially treated with Cardizem drip, followed by Rythmol, along with metoprolol. Post Cardiolite study, Continued to have a another episode of chest pain, Further evaluated by cardiology, underwent cardiac catheterization reporting, mild CAD involving the LAD and RCA without high-grade stenosis and with normal LV function. Maximizing medical therapy.Currently atrial fibrillation,CVR. Patient has been cleared for discharge by cardiology. Patient is being discharged home in a stable condition with guarded prognosis. Patient Condition at Discharge: Stable Plan - Discharge Summary Discharge Medication List Calcium Carbonate [Calcium] 1,200 mg PO AC-LUNCH 04/26/16 [History] Cholecalciferol [Vitamin D3] 4,000 unit PO AC-LUNCH 04/26/16 [History] Fish Oil 300mg 600 mg PO AC-LUNCH 04/26/16 [History] Folic Acid 1 mg PO DAILY 04/26/16 [History] Ipratropium [place] 0.06%Nasal [Atrovent Nasal 0.06%] 1 spray EA NOSTRIL DAILY 04/26/16 [History] Levothyroxine Sodium [Synthroid] 88 mcg PO DAILY 04/26/16 [History] Meloxicam [Mobic] 15 mg PO DAILY 04/26/16 [History] Methotrexate Sodium [Methotrexate] 15 mg PO GALVAN 04/26/16 [History] Multivitamins, Thera [Multivitamin] 1 tab PO AC-LUNCH 04/26/16 [History] predniSONE 5 mg PO DAILY 04/26/16 [History] Apixaban [Eliquis] 5 mg PO BID #60 tab 04/29/16 [Rx] Atorvastatin [Lipitor] 80 mg PO DAILY #30 tab 04/29/16 [Rx] Metoprolol Tartrate [Lopressor] 50 mg PO BID #60 tab 04/29/16 [Rx] Follow up Appointment(s)/Referral(s): Damien Reynolds MD [STAFF PHYSICIAN] - 1 Week (OFFICE TO CALL WITH APPOINTMENT ) Jhonny Ryan DO [Primary Care Provider] - 05/17/16 11:20 am Patient Instructions/Handouts: After Heart Catheterization - 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
[2016-05-12] MEDS ORDERED: APIXABAN 5 MG TAB PO SCH (20:00)
[2016-05-16] MEDS ORDERED: METHOTREXATE SODIUM 2.5 MG TAB PO SCH (12:30)
== END 2016-05-12 17:34 | disposition home or self-care (01) | DRG 287 ==
LOC: EC 02:55 → 6ICU 05:10 → 6SEL 15:15
PROVIDERS: ADMIT Hospitalist; ATTEND Hospitalist
PROC: B2111ZZ Fluoroscopy of Multiple Coronary Arteries using Low Osmolar Contrast (ICD-10-PCS; 2016-05-12)
PROC: B2151ZZ Fluoroscopy of Left Heart using Low Osmolar Contrast (ICD-10-PCS; 2016-05-12)
PROC: 4A023N7 Measurement of Cardiac Sampling and Pressure, Left Heart, Percutaneous Approach (ICD-10-PCS; principal; 2016-05-12 09:15)
DX: I48.2 Chronic atrial fibrillation (principal); E66.01 Morbid (severe) obesity due to excess calories; M06.9 Rheumatoid arthritis, unspecified; E03.9 Hypothyroidism, unspecified; E78.5 Hyperlipidemia, unspecified; R07.9 Chest pain, unspecified; F17.200 Nicotine dependence, unspecified, uncomplicated; H26.9 Unspecified cataract; I25.10 Atherosclerotic heart disease of native coronary artery without angina pectoris; K21.9 Gastro-esophageal reflux disease without esophagitis; M19.90 Unspecified osteoarthritis, unspecified site; H53.2 Diplopia; Z68.28 Body mass index [BMI] 28.0-28.9, adult; Z85.819 Personal history of malignant neoplasm of unspecified site of lip, oral cavity, and pharynx; Z79.01 Long term (current) use of anticoagulants; Z79.52 Long term (current) use of systemic steroids; Z79.899 Other long term (current) drug therapy; Z88.1 Allergy status to other antibiotic agents
CPT/HCPCS: 36415; 71010; 80048; 80053; 80061; 82550; 82553; 83735; 84439; 84443; 84484; 85025; 85027; 93005; 93458; 96365; 96366; 96376; 99285

== ENCOUNTER → 2016-06-02 | Day surgery (SDC) | payer MEDICARE, BC ==
[2016-05-31 09:58] VITALS: BMI 28.8
[~2016-06-02] MED LIST: APIXABAN 5 MG TAB PO SCH; ATORVASTATIN 80 MG TAB PO SCH; CHOLECALCIFEROL 1,000 UNIT TAB PO SCH; FISH OIL PO SCH; FLECAINIDE 50 MG TAB PO SCH; FOLIC ACID 1 MG TAB PO SCH; HYDROmorphone 1 MG/ML 1 ML SYRINGE IVP PRN; IPRATROPIUM BROMIDE 0.06% NASAL SPRAY (15 ML) EA NOSTRIL SCH; IV FLUID CONTINUATION 1,000 ML IV ONE; LACTATED RINGERS 1,000 ML IV SCH; LEVOTHYROXINE 88 MCG TAB PO SCH; LIDOCAINE 1% INJ 10MG/ML (20 ML MDV) ONE; METHOTREXATE SODIUM 2.5 MG TAB PO SCH; METOPROLOL TARTRATE 50 MG TAB PO SCH; MULTIVITAMINS, THERA 1 EACH TAB PO SCH; NON-FORMULARY DRUG (Calcium Carbonate [Calcium] 1,200 MG) PO SCH; ONDANSETRON 4 MG/2 ML VIAL IVP ONE; PROPOFOL 10 MG/ML 20 ML VIAL IV ONE; SODIUM CHLORIDE 0.9% 1,000 ML IV SCH; ePHEDrine 50 MG/ML 1 ML AMP IVP ONE; predniSONE 5 MG TAB PO SCH
[2016-06-02 06:48] VITALS: TEMP 97.6
--- NOTE | 2016-06-02 07:42 | CE ---
DATE OF SERVICE: CARDIOVERSION PROCEDURE NOTE INDICATION: Atrial fibrillation. PROCEDURE: After explaining the procedure to the patient as well as risks and complications after obtaining sedated state per anesthesia department and performing transesophageal echocardiogram, a synchronized biphasic cardioversion using 200 joules was performed with amish of normal sinus rhythm. There was no immediate complication.
--- NOTE | 2016-06-02 07:49 | ECHOT ---
DATE OF SERVICE: INDICATION: Evaluation left atrial appendage. PROCEDURE: After explaining the procedure to patient as well as risks and complications, her blood pressure, heart rate, O2 saturation were monitored. The throat was sprayed with Cetacaine. She received sedation per anesthesia department. The probe was introduced into the esophagus. Images were obtained. Following that, the probe was removed. There was no immediate complication. FINDINGS: Left atrial size is mildly dilated. Left atrial appendage is normal. Right atrial size is dilated. Left ventricular size and systolic function are normal. The aortic valve appears to be normal. ( ) annulus calcification was noted. Tricuspid valve is normal. Descending thoracic aorta appears to be normal. Contrast bubble study revealed no evidence of shunting across the interatrial septum. There was no pericardial effusion. Doppler pulse wave and color Doppler obtained revealed moderate mitral and tricuspid regurgitation. There was no shunting by color Doppler study. CONCLUSION: 1. Biatrial enlargement, normal appearance of left atrial appendage. 2. Normal left ventricular size and systolic function. 3. Mitral annulus calcification. 4. Moderate mitral and tricuspid regurgitation. 5. No evidence of shunting across the interatrial septum.
[2016-06-02 08:02] VITALS: RESP 18
[2016-06-02 11:37] VITALS: BP 110/77; PULSE 59
== END | disposition home or self-care (01) ==
LOC: CATHCVL 06:10
PROVIDERS: ATTEND Internal Medicine Interventional Cardiology
DX: I48.2 Chronic atrial fibrillation (principal); Z79.01 Long term (current) use of anticoagulants; I08.1 Rheumatic disorders of both mitral and tricuspid valves; I25.10 Atherosclerotic heart disease of native coronary artery without angina pectoris; I10 Essential (primary) hypertension; E78.2 Mixed hyperlipidemia; E07.9 Disorder of thyroid, unspecified; M06.9 Rheumatoid arthritis, unspecified; Z79.52 Long term (current) use of systemic steroids; Z79.899 Other long term (current) drug therapy; Z88.1 Allergy status to other antibiotic agents; Z88.8 Allergy status to other drugs, medicaments and biological substances
CPT/HCPCS: 93312; 93320; 93325; 92960; J2001; J2704

== ENCOUNTER → 2016-06-07 | Outpatient (CLI) | payer MEDICARE, BC ==
[2016-06-07 10:29] LABS: ALT 65 U/L (9-52); AST 27 U/L (14-36); Alkaline Phosphatase 66 U/L (38-126); Anion Gap 9 mmol/L; Blood Urea Nitrogen 16 mg/dL (7-17); Calcium 9.7 mg/dL (8.4-10.2); Carbon Dioxide 30 mmol/L (22-30); Chloride 105 mmol/L (98-107); Cholesterol 100 mg/dL (<200); Glucose 87 mg/dL (74-99); HDL Cholesterol 57 mg/dL (40-60); Non-African American GFR(MDRD) >60 (>60 ml/min/1.73 sqM); Potassium 4.8 mmol/L (3.5-5.1); Sodium 144 mmol/L (137-145); Total Bilirubin 0.9 mg/dL (0.2-1.3); Total Protein 6.2 g/dL (6.3-8.2); Triglycerides 77 mg/dL (<150)
== END ==
LOC: LABWHC1 08:56
PROVIDERS: ATTEND Internal Medicine Interventional Cardiology
DX: E78.2 Mixed hyperlipidemia (principal)
CPT/HCPCS: 36415; 80053; 80061

== ENCOUNTER → 2016-06-15 | Outpatient (CLI) | payer MEDICARE, BC ==
--- NOTE | 2016-06-16 07:29 | XR ---
EXAMINATION TYPE: XR abdomen 2V DATE OF EXAM: 06/15/2016 2:32 PM CLINICAL DATA: 76-year-old female with generalized abdominal pain, [facility] COMPARISON: None FINDINGS: Lung bases are clear. No evidence for free intraperitoneal air. No dilated small bowel or air-fluid levels. Scattered air and stool seen throughout the colon extendi ng distally into the rectum. Moderate overall stool burden. There is a 5 mm calcification in the left mid abdomen. IMPRESSION: 1. A 5 mm density in the left mid abdomen may represent a urinary tract/renal calculus. Clinically co rrelate. 2. No evidence of bowel obstruction or free intraperitoneal air.
== END ==
LOC: RADXRYALE 14:10
PROVIDERS: ATTEND Physician Assistant Medical
DX: N28.89 Other specified disorders of kidney and ureter (principal)
CPT/HCPCS: 74020

== ENCOUNTER → 2016-07-09 | Outpatient (CLI) | payer MEDICARE, BC ==
--- NOTE | 2016-07-09 13:01 | CT ---
EXAMINATION TYPE: CT abdomen pelvis wo con DATE OF EXAM: 07/09/2016 12:41 PM COMPARISON: NONE HISTORY: Abdominal pain. Hematuria CT DLP: 380.30 mGycm Automated exposure control for dose reduction was used. TECHNIQUE: Helical acquisition of images was performed from the lung bases through the pelvis. FINDINGS: LUNG BASES: No significant abnormality is appreciated. Dense mitral annulus calcifications are noted. Multiple right lower lobe pulmonary blebs are also noted. Tiny Bochdalek hernia is present. LIVER/GB: No significant abnormality is appreciated. PANCREAS: Diffuse pancreatic atrophy and fatty replacement. SPLEEN: No significant abnormality is seen. ADRENALS: No significant abnormality is seen. KIDNEYS: No significant abnormality is seen. Partially visualized subcentimeter right renal cystic le dotty, too small to accurately characterize but statistically representing a renal cyst. FREE AIR: No free air is visualized RETROPERITONEAL ADENOPATHY: None visualized REPRODUCTIVE ORGANS: No significant abnormality is seen URINARY BLADDER: No significant abnormality is seen. PELVIC ADENOPATHY: None visualized. OSSEOUS STRUCTURES: No significant abnormality is seen. Mild degenerative changes of the thoracolumb ar and lumbosacral spine. BOWEL: No significant abnormality is seen. Small hiatal hernia. Few sigmoid diverticula are noted wi th the sigmoid colon extending into the proximal aspect of a left inguinal hernia and the cecum abutt ing a small right fat filled inguinal hernia. No current evidence of bowel obstruction. OTHER: Subcutaneous nodule contiguous with the skin surface within the right mid abdomen measuring 1. 3 cm may relate to subcutaneous sebaceous cyst. Moderate atherosclerosis is seen of the abdominal aor ta and its branches. Abdominal aorta is of normal course and caliber. Small fat filled umbilical shiva ia is present. IMPRESSION: 1. NO EVIDENCE OF NEPHROLITHIASIS OR OBSTRUCTIVE UROPATHY. IF THERE IS CONTINUED HEMATURIA CT RENAL M ASS PROTOCOL OR UROGRAM COULD BE PERFORMED. 2. BILATERAL INGUINAL HERNIAS WITH THE LEFT INGUINAL HERNIA CONTAINING PORTIONS OF THE SIGMOID COLON THAT ARE CURRENTLY NONOBSTRUCTED AND CECUM ABUTTING THE RIGHT LATERAL HERNIA. 3. RIGHT MID ABDOMINAL 1.3 CM SUBCUTANEOUS TISSUE NODULE CONTIGUOUS WITH THE SKIN SURFACE MAY REPRESE NT A SUBCUTANEOUS SEBACEOUS CYST. 4. DIFFUSE PANCREATIC ATROPHY AND FATTY REPLACEMENT. 5. HYPOATTENUATING RIGHT RENAL LESION THAT IS TOO SMALL TO ACCURATELY CHARACTERIZE BUT STATISTICALLY REPRESENTS A SIMPLE CYST. 6. SMALL HIATAL HERNIA. 7. SIGMOID DIVERTICULOSIS WITHOUT EVIDENCE OF DIVERTICULITIS.
== END | disposition home or self-care (01) ==
LOC: RADCTMAIN 12:05
PROVIDERS: ATTEND Family Medicine
DX: K57.30 Diverticulosis of large intestine without perforation or abscess without bleeding (principal); K21.9 Gastro-esophageal reflux disease without esophagitis; R19.07 Generalized intra-abdominal and pelvic swelling, mass and lump; K40.90 Unilateral inguinal hernia, without obstruction or gangrene, not specified as recurrent; K86.89 Other specified diseases of pancreas; N28.9 Disorder of kidney and ureter, unspecified; N28.89 Other specified disorders of kidney and ureter; K44.9 Diaphragmatic hernia without obstruction or gangrene; R19.09 Other intra-abdominal and pelvic swelling, mass and lump; R31.9 Hematuria, unspecified
CPT/HCPCS: 74176

== ENCOUNTER → 2016-07-29 | Outpatient (CLI) | payer MEDICARE, BC ==
[2016-07-29 10:07] LABS: ALT 39 U/L (9-52); AST 26 U/L (14-36); C Reactive Protein 26.9 mg/L (<10.0); Non-African American GFR(MDRD) >60 (>60 ml/min/1.73 sqM)
[2016-07-29 10:16] LABS: Basophils % (A) 0 %; CH 30.7; CHCM 31.9; Eosinophils # (A) 0.1 k/uL (0-0.7); Eosinophils % (A) 2 %; HDW 2.42; HGB 15.5 gm/dL (11.4-16.0); Luc # (Auto) 0.09; Luc % (Auto) 2; Lymphocytes % (A) 18 %; MCH 30.6 pg (25.0-35.0); MCHC 31.6 g/dL (31.0-37.0); MCV 96.8 fL (80.0-100.0); Mean Platelet Volume 8.2; Monocytes # (A) 0.6 k/uL (0-1.0); Monocytes % (A) 11 %; Neutrophils # (A) 3.7 k/uL (1.3-7.7); Neutrophils % (A) 68 %; RBC 5.07 m/uL (3.80-5.40); WBC 5.5 k/uL (3.8-10.6); WBC (Perox) 5.94
[2016-07-29 15:15] LABS: Erythrocyte Sedimentation Rate 3 mm/hr (0-20)
== END | disposition home or self-care (01) ==
LOC: LABWHC1 09:30
PROVIDERS: ATTEND Internal Medicine Rheumatology
DX: M06.9 Rheumatoid arthritis, unspecified (principal)
CPT/HCPCS: 36415; 82565; 84450; 84460; 85025; 85652; 86140

== ENCOUNTER → 2016-08-30 | Outpatient (CLI) | payer MEDICARE, BC ==
--- NOTE | 2016-08-31 08:00 | MM ---
Reason for exam: screening (asymptomatic). Last mammogram was performed 1 year and 2 months ago. History: Patient is postmenopausal and history of other cancer. Benign right mammotome panel of the right breast, August 19, 2010. Took estrogen for 10 years beginning at age 51. Took progesterone for 10 years beginning at age 51. Physical Findings: A clinical breast exam by your physician is recommended on an annual basis and results should be correlated with mammographic findings. MG 3D Screening Mammo W/Cad Bilateral CC and MLO view(s) were taken. Prior study comparison: June 25, 2015, bilateral MG screening mammo w CAD. May 17, 2014, bilateral MG screening mammo w CAD. The breast tissue is almost entirely fat. Previous ultrasound biopsy in the right breast. No significant changes when compared with prior studies. ASSESSMENT: Benign, BI-RAD 2 RECOMMENDATION: Routine screening mammogram of both breasts in 1 year.
== END | disposition home or self-care (01) ==
LOC: RADMAMWWP 09:51
PROVIDERS: ATTEND Family Medicine
DX: Z12.31 Encounter for screening mammogram for malignant neoplasm of breast (principal)
CPT/HCPCS: 77063; G0202

== ENCOUNTER → 2016-10-12 | Outpatient (CLI) | payer MEDICARE, BC ==
[2016-10-12 10:35] LABS: ALT 39 U/L (9-52); AST 31 U/L (14-36); Alkaline Phosphatase 69 U/L (38-126); Anion Gap 9 mmol/L; Blood Urea Nitrogen 15 mg/dL (7-17); Calcium 9.1 mg/dL (8.4-10.2); Carbon Dioxide 27 mmol/L (22-30); Chloride 104 mmol/L (98-107); Cholesterol 122 mg/dL (<200); Glucose 87 mg/dL (74-99); HDL Cholesterol 58 mg/dL (40-60); Non-African American GFR(MDRD) >60 (>60 ml/min/1.73 sqM); Potassium 4.8 mmol/L (3.5-5.1); Sodium 140 mmol/L (137-145); Total Bilirubin 0.8 mg/dL (0.2-1.3); Total Protein 6.1 g/dL (6.3-8.2)
== END | disposition home or self-care (01) ==
LOC: LABWHC1 09:13
PROVIDERS: ATTEND Internal Medicine Interventional Cardiology
DX: E78.2 Mixed hyperlipidemia (principal)
CPT/HCPCS: 36415; 80053; 80061

== ENCOUNTER → 2016-11-11 | Outpatient (CLI) | payer MEDICARE, BC ==
[2016-11-11 10:21] LABS: Basophils % (A) 0 %; CH 30.2; CHCM 32.2; Eosinophils # (A) 0.1 k/uL (0-0.7); Eosinophils % (A) 2 %; HCT 48.2 % (34.0-46.0); HDW 2.47; HGB 15.8 gm/dL (11.4-16.0); Luc # (Auto) 0.11; Luc % (Auto) 2; Lymphocytes # (A) 0.9 k/uL (1.0-4.8); Lymphocytes % (A) 13 %; MCH 30.9 pg (25.0-35.0); MCHC 32.8 g/dL (31.0-37.0); MCV 94.2 fL (80.0-100.0); Mean Platelet Volume 7.9; Monocytes # (A) 0.5 k/uL (0-1.0); Monocytes % (A) 8 %; Neutrophils % (A) 75 %; RBC 5.11 m/uL (3.80-5.40); RDW 15.2 % (11.5-15.5); WBC 6.6 k/uL (3.8-10.6); WBC (Perox) 6.65
[2016-11-11 10:39] LABS: ALT 42 U/L (9-52); AST 25 U/L (14-36); C Reactive Protein <5.0 mg/L (<10.0); Non-African American GFR(MDRD) >60 (>60 ml/min/1.73 sqM)
[2016-11-11 11:32] LABS: Erythrocyte Sedimentation Rate 3 mm/hr (0-20)
== END | disposition home or self-care (01) ==
LOC: LABWHC1 09:28
PROVIDERS: ATTEND Internal Medicine Rheumatology
DX: M06.9 Rheumatoid arthritis, unspecified (principal)
CPT/HCPCS: 36415; 82565; 84450; 84460; 85025; 85652; 86140

== ENCOUNTER → 2017-03-29 | Outpatient (CLI) | payer MEDICARE, BC ==
[2017-03-29 11:08] LABS: ALT 42 U/L (9-52); AST 25 U/L (14-36); C Reactive Protein 23.6 mg/L (<10.0); Cholesterol 117 mg/dL (<200); HDL Cholesterol 50 mg/dL (40-60); LDL Cholesterol,Calculated 43 mg/dL (0-99); Triglycerides 120 mg/dL (<150)
[2017-03-29 11:18] LABS: Basophils % (A) 1 %; Eosinophils # (A) 0.1 k/uL (0-0.7); Eosinophils % (A) 2 %; HGB 14.7 gm/dL (11.4-16.0); Lymphocytes % (A) 22 %; MCH 29.3 pg (25.0-35.0); MCHC 30.6 g/dL (31.0-37.0); MCV 95.8 fL (80.0-100.0); Mean Platelet Volume 8.3; Monocytes # (A) 0.5 k/uL (0-1.0); Monocytes % (A) 11 %; Neutrophils # (A) 2.8 k/uL (1.3-7.7); Neutrophils % (A) 61 %; Platelet Count 206 k/uL (150-450); RBC 5.01 m/uL (3.80-5.40); RDW 14.3 % (11.5-15.5); WBC 4.6 k/uL (3.8-10.6)
[2017-03-29 16:36] LABS: Erythrocyte Sedimentation Rate 8 mm/hr (0-20)
== END | disposition home or self-care (01) ==
LOC: LABWHC1 10:00
PROVIDERS: ATTEND Internal Medicine Rheumatology
DX: E78.2 Mixed hyperlipidemia (principal); M06.9 Rheumatoid arthritis, unspecified
CPT/HCPCS: 36415; 80061; 82565; 84450; 84460; 85025; 85652; 86140

== ENCOUNTER → 2017-06-29 | Outpatient (CLI) | payer MEDICARE, BC ==
[2017-06-29 10:19] LABS: Basophils % (A) 1 %; Eosinophils # (A) 0.1 k/uL (0-0.7); Eosinophils % (A) 2 %; HCT 46.8 % (34.0-46.0); HGB 15.3 gm/dL (11.4-16.0); Lymphocytes # (A) 1.1 k/uL (1.0-4.8); Lymphocytes % (A) 16 %; MCH 30.2 pg (25.0-35.0); MCHC 32.7 g/dL (31.0-37.0); MCV 92.1 fL (80.0-100.0); Mean Platelet Volume 8.3; Monocytes # (A) 0.7 k/uL (0-1.0); Monocytes % (A) 11 %; Neutrophils # (A) 4.4 k/uL (1.3-7.7); Neutrophils % (A) 68 %; Platelet Count 203 k/uL (150-450); RBC 5.08 m/uL (3.80-5.40); RDW 13.8 % (11.5-15.5); WBC 6.5 k/uL (3.8-10.6)
[2017-06-29 11:25] LABS: ALT 37 U/L (9-52); AST 28 U/L (14-36); C Reactive Protein <5.0 mg/L (<10.0)
[2017-06-29 11:56] LABS: Erythrocyte Sedimentation Rate 2 mm/hr (0-20)
== END | disposition home or self-care (01) ==
LOC: LABWHC1 09:35
PROVIDERS: ATTEND Internal Medicine Rheumatology
DX: M06.9 Rheumatoid arthritis, unspecified (principal)
CPT/HCPCS: 36415; 82565; 84450; 84460; 85025; 85652; 86140

== ENCOUNTER → 2017-09-28 | Outpatient (CLI) | payer MEDICARE, BC ==
[2017-09-28 09:45] LABS: Basophils % (A) 0 %; Eosinophils # (A) 0.1 k/uL (0-0.7); Eosinophils % (A) 2 %; HCT 48.1 % (34.0-46.0); Lymphocytes % (A) 16 %; MCH 28.7 pg (25.0-35.0); MCHC 31.3 g/dL (31.0-37.0); MCV 91.5 fL (80.0-100.0); Mean Platelet Volume 7.6; Monocytes # (A) 0.6 k/uL (0-1.0); Monocytes % (A) 9 %; Neutrophils # (A) 4.3 k/uL (1.3-7.7); Neutrophils % (A) 71 %; Platelet Count 216 k/uL (150-450); RBC 5.25 m/uL (3.80-5.40); RDW 14.6 % (11.5-15.5)
[2017-09-28 11:10] LABS: ALT 42 U/L (9-52); AST 28 U/L (14-36); Albumin 3.4 g/dL (3.5-5.0); Alkaline Phosphatase 66 U/L (38-126); Anion Gap 7 mmol/L; Blood Urea Nitrogen 16 mg/dL (7-17); C Reactive Protein 6.1 mg/L (<10.0); Calcium 9.1 mg/dL (8.4-10.2); Carbon Dioxide 26 mmol/L (22-30); Chloride 107 mmol/L (98-107); Cholesterol 104 mg/dL (<200); Glucose 90 mg/dL (74-99); HDL Cholesterol 48 mg/dL (40-60); LDL Cholesterol,Calculated 37 mg/dL (0-99); Potassium 4.2 mmol/L (3.5-5.1); Sodium 140 mmol/L (137-145); Total Bilirubin 0.7 mg/dL (0.2-1.3); Total Protein 5.9 g/dL (6.3-8.2); Triglycerides 93 mg/dL (<150)
[2017-09-28 12:14] LABS: Erythrocyte Sedimentation Rate 6 mm/hr (0-20)
== END | disposition home or self-care (01) ==
LOC: LABWHC1 09:13
PROVIDERS: ATTEND Internal Medicine Interventional Cardiology
DX: E78.2 Mixed hyperlipidemia (principal); M06.9 Rheumatoid arthritis, unspecified
CPT/HCPCS: 36415; 80053; 80061; 85025; 85652; 86140

== ENCOUNTER → 2017-12-20 | Outpatient (CLI) | payer MEDICARE, BC ==
--- NOTE | 2017-12-21 11:28 | MM ---
Reason for exam: screening (asymptomatic). Last mammogram was performed 1 year and 4 months ago. History: Patient is postmenopausal and history of other cancer. Benign right mammotome panel of the right breast, August 19, 2010. Took estrogen for 10 years beginning at age 51. Took progesterone for 10 years beginning at age 51. Physical Findings: A clinical breast exam by your physician is recommended on an annual basis and results should be correlated with mammographic findings. MG 3D Screening Mammo W/Cad Bilateral CC and MLO view(s) were taken. Prior study comparison: August 30, 2016, bilateral MG 3d screening mammo w/cad. June 25, 2015, bilateral MG screening mammo w CAD. There are scattered fibroglandular densities. There are benign appearing round vascular calcifications bilaterally. Previous mammotome biopsy in the right breast. There is no discrete abnormality. ASSESSMENT: Benign, BI-RAD 2 RECOMMENDATION: Routine screening mammogram of both breasts in 1 year.
== END | disposition home or self-care (01) ==
LOC: RADMAMWWP 09:25
PROVIDERS: ATTEND Family Medicine
DX: Z12.31 Encounter for screening mammogram for malignant neoplasm of breast (principal)
CPT/HCPCS: 77063; 77067

== ENCOUNTER → 2018-01-25 | Outpatient (CLI) | payer MEDICARE, BC ==
[2018-01-25 11:30] LABS: Basophils % (A) 0 %; Eosinophils # (A) 0.1 k/uL (0-0.7); Eosinophils % (A) 1 %; HCT 47.1 % (34.0-46.0); HGB 15.2 gm/dL (11.4-16.0); Lymphocytes % (A) 14 %; MCH 30.1 pg (25.0-35.0); MCHC 32.4 g/dL (31.0-37.0); MCV 93.1 fL (80.0-100.0); Mean Platelet Volume 8.4; Monocytes # (A) 0.7 k/uL (0-1.0); Monocytes % (A) 9 %; Neutrophils # (A) 5.7 k/uL (1.3-7.7); Neutrophils % (A) 74 %; Platelet Count 171 k/uL (150-450); RBC 5.07 m/uL (3.80-5.40); RDW 14.6 % (11.5-15.5); WBC 7.6 k/uL (3.8-10.6)
[2018-01-25 12:29] LABS: Erythrocyte Sedimentation Rate 2 mm/hr (0-20)
[2018-01-25 17:00] LABS: ALT 33 U/L (8-44); AST 29 U/L (13-35); C Reactive Protein <0.4 mg/dL (0.0-0.8)
== END | disposition home or self-care (01) ==
LOC: LABWHC1 10:03
PROVIDERS: ATTEND Internal Medicine Rheumatology
DX: M06.9 Rheumatoid arthritis, unspecified (principal)
CPT/HCPCS: 36415; 82565; 84450; 84460; 85025; 85652; 86140

== ENCOUNTER → 2018-04-27 | Outpatient (CLI) | payer MEDICARE, BC ==
[2018-04-27 18:20] LABS: LDL Cholesterol,Calculated 46.8 mg/dL (0.0-131.0); VLDL Calculation 18.2 mg/dL (5.00-40.00)
== END ==
LOC: LABWHC1 09:45
PROVIDERS: ATTEND Internal Medicine Interventional Cardiology
DX: E78.2 Mixed hyperlipidemia (principal)
CPT/HCPCS: 36415; 80061; 84450; 84460

== ENCOUNTER → 2018-08-02 | Outpatient (CLI) | payer MEDICARE, BC ==
[2018-08-02 10:08] LABS: Basophils # (A) 0.1 k/uL (0-0.2); Basophils % (A) 1 %; Eosinophils # (A) 0.1 k/uL (0-0.7); Eosinophils % (A) 2 %; HCT 47.4 % (34.0-46.0); HGB 14.7 gm/dL (11.4-16.0); Lymphocytes % (A) 18 %; MCH 28.9 pg (25.0-35.0); MCHC 30.9 g/dL (31.0-37.0); MCV 93.6 fL (80.0-100.0); Mean Platelet Volume 8.7; Monocytes # (A) 0.6 k/uL (0-1.0); Monocytes % (A) 10 %; Neutrophils # (A) 3.9 k/uL (1.3-7.7); Neutrophils % (A) 67 %; Platelet Count 186 k/uL (150-450); RBC 5.06 m/uL (3.80-5.40); RDW 15.5 % (11.5-15.5); WBC 5.8 k/uL (3.8-10.6)
[2018-08-02 11:36] LABS: Erythrocyte Sedimentation Rate 4 mm/hr (0-20)
[2018-08-02 16:50] LABS: ALT 34 U/L (8-44); AST 31 U/L (13-35); C Reactive Protein <0.4 mg/dL (0.0-0.8)
== END | disposition home or self-care (01) ==
LOC: LABWHC1 09:16
PROVIDERS: ATTEND Internal Medicine Rheumatology
DX: M06.9 Rheumatoid arthritis, unspecified (principal)
CPT/HCPCS: 36415; 82565; 84450; 84460; 85025; 85652; 86140

== ENCOUNTER → 2018-11-02 | Outpatient (CLI) | payer MEDICARE, BC ==
[2018-11-02 10:36] LABS: Basophils % (A) 0 %; Eosinophils # (A) 0.1 k/uL (0-0.7); Eosinophils % (A) 2 %; HCT 49.1 % (34.0-46.0); HGB 15.8 gm/dL (11.4-16.0); Lymphocytes # (A) 1.2 k/uL (1.0-4.8); Lymphocytes % (A) 21 %; MCH 30.5 pg (25.0-35.0); MCHC 32.1 g/dL (31.0-37.0); Mean Platelet Volume 8.2; Monocytes # (A) 0.5 k/uL (0-1.0); Monocytes % (A) 9 %; Neutrophils # (A) 3.7 k/uL (1.3-7.7); Neutrophils % (A) 65 %; Platelet Count 208 k/uL (150-450); RBC 5.17 m/uL (3.80-5.40); RDW 14.6 % (11.5-15.5); WBC 5.6 k/uL (3.8-10.6)
[2018-11-02 14:20] LABS: Erythrocyte Sedimentation Rate 2 mm/hr (0-20)
[2018-11-02 18:24] LABS: ALT 36 U/L (8-44); AST 31 U/L (13-35); African American GFR (CKD) 81.3 (60.0-200.0); Albumin/Globulin Ratio 2.18 (1.60-3.17); Alkaline Phosphatase 65 U/L (41-126); C Reactive Protein <0.4 mg/dL (0.0-0.8); Calcium 9.4 mg/dL (8.7-10.3); Carbon Dioxide 25.5 mmol/L (21.6-31.8); Chloride 106 mmol/L (96-109); Chol/HDL Ratio 1.98; Cholesterol 115 mg/dL (0-200); Globulin 1.7 g/dL (1.6-3.3); Glucose 88 mg/dL (70-110); Potassium 4.3 mmol/L (3.5-5.5); Sodium 140 mmol/L (135-145); Total Bilirubin 0.9 mg/dL (0.3-1.2); Total Protein 5.4 g/dL (6.2-8.2)
== END | disposition home or self-care (01) ==
LOC: LABWHC1 09:36
PROVIDERS: ATTEND Internal Medicine Rheumatology
DX: M06.9 Rheumatoid arthritis, unspecified (principal); I10 Essential (primary) hypertension; M05.79 Rheumatoid arthritis with rheumatoid factor of multiple sites without organ or systems involvement; E78.2 Mixed hyperlipidemia; E55.9 Vitamin D deficiency, unspecified; E03.9 Hypothyroidism, unspecified; I48.2 Chronic atrial fibrillation
CPT/HCPCS: 36415; 80053; 80061; 82306; 84439; 84443; 85025; 85652; 86140

== ENCOUNTER → 2019-04-17 | Outpatient (CLI) | payer MEDICARE, BC ==
[2019-04-17 10:37] LABS: Basophils % (A) 1 %; Eosinophils # (A) 0.1 k/uL (0-0.7); Eosinophils % (A) 2 %; HCT 49.9 % (34.0-46.0); HGB 15.7 gm/dL (11.4-16.0); Lymphocytes # (A) 1.2 k/uL (1.0-4.8); Lymphocytes % (A) 21 %; MCH 30.6 pg (25.0-35.0); MCHC 31.5 g/dL (31.0-37.0); MCV 97.2 fL (80.0-100.0); Mean Platelet Volume 8.8; Monocytes # (A) 0.6 k/uL (0-1.0); Monocytes % (A) 10 %; Neutrophils # (A) 3.6 k/uL (1.3-7.7); Neutrophils % (A) 64 %; Platelet Count 167 k/uL (150-450); RBC 5.14 m/uL (3.80-5.40); WBC 5.6 k/uL (3.8-10.6)
[2019-04-17 12:03] LABS: Erythrocyte Sedimentation Rate 3 mm/hr (0-20)
[2019-04-17 18:14] LABS: ALT 28 U/L (8-44); AST 26 U/L (13-35); African American GFR (CKD) 80.7 (60.0-200.0); C Reactive Protein <0.4 mg/dL (0.0-0.8); Chol/HDL Ratio 2.32; Cholesterol 132 mg/dL (0-200); LDL Cholesterol,Calculated 55.8 mg/dL (0.0-131.0); Non-African American GFR(CKD) 69.6 (60.0-200.0)
== END | disposition home or self-care (01) ==
LOC: LABWHC1 09:41
PROVIDERS: ATTEND Internal Medicine Rheumatology
DX: E78.2 Mixed hyperlipidemia (principal); M06.9 Rheumatoid arthritis, unspecified
CPT/HCPCS: 36415; 80061; 82565; 84450; 84460; 85025; 85652; 86140

== ENCOUNTER 2019-09-04 03:57 | Inpatient (IN) | payer MEDICARE, BC ==
--- NOTE | 2019-09-04 03:59 | ED ---
Recheck HPI - General Stated Complaint: Afib Time Seen by Provider: 09/04/19 03:58 - Related Data Home Medications Medication Instructions Recorded Confirmed Calcium Carbonate [Calcium] 1,200 mg PO AC-LUNCH 04/26/16 05/31/16 Cholecalciferol [Vitamin D3 (25 4,000 unit PO AC-LUNCH 04/26/16 05/31/16 Mcg = 1000 Iu)] Fish Oil 300mg 600 mg PO AC-LUNCH 04/26/16 05/31/16 Folic Acid 1 mg PO DAILY 04/26/16 05/31/16 Ipratropium [place] 0.06%Nasal 1 spray EA NOSTRIL DAILY 04/26/16 06/02/16 [Atrovent Nasal 0.06%] Levothyroxine Sodium [Synthroid] 88 mcg PO DAILY 04/26/16 05/31/16 Methotrexate Sodium [Methotrexate] 15 mg PO GALVAN 04/26/16 06/02/16 Multivitamins, Thera [Multivitamin 1 tab PO AC-LUNCH 04/26/16 05/31/16 (formulary)] predniSONE 5 mg PO DAILY 04/26/16 05/31/16 Flecainide [Tambocor] 50 mg PO Q12HR 05/31/16 05/31/16 Previous Rx's Medication Instructions Recorded Apixaban [Eliquis] 5 mg PO BID #60 tab 04/29/16 Atorvastatin [Lipitor] 80 mg PO DAILY #30 tab 04/29/16 Metoprolol Tartrate [Lopressor] 25 mg PO BID #60 tab 06/02/16 Allergies Allergy/AdvReac Type Severity Reaction Status Date / Time clindamycin Allergy Rash/Hives Verified 09/04/19 04:06 erythromycin base Allergy Rash/Hives Verified 09/04/19 04:06 infliximab [From Remicade] Allergy THROAT Verified 09/04/19 04:06 Swelling Review of Systems ROS Statement: Those systems with pertinent positive or pertinent negative responses have been documented in the HPI. ROS Other: All systems not noted in ROS Statement are negative. 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 Father Additional Family Medical History / Comment(s): Father at the age of 83yrs from heart disease. Course Vital Signs 09/04/19 09/04/19 09/04/19 04:02 05:08 05:32 Temperature 98.1 F Pulse Rate 114 H 95 70 Respiratory 18 18 18 Rate Blood Pressure 121/92 98/66 117/76 O2 Sat by Pulse 100 97 98 Oximetry Medical Decision Making - Lab Data Result diagrams: 09/04/19 04:40 09/04/19 04:40 Lab Results 09/04/19 09/04/19 09/04/19 Range/Units 04:40 04:40 04:40 WBC 7.5 (3.8-10.6) k/uL RBC 5.04 (3.80-5.40) m/uL Hgb 15.7 (11.4-16.0) gm/dL Hct 48.4 H (34.0-46.0) % MCV 96.0 (80.0-100.0) fL MCH 31.1 (25.0-35.0) pg MCHC 32.4 (31.0-37.0) g/dL RDW 14.4 (11.5-15.5) % Plt Count 156 (150-450) k/uL Neutrophils % 78 % Lymphocytes % 11 % Monocytes % 7 % Eosinophils % 2 % Basophils % 0 % Neutrophils # 5.8 (1.3-7.7) k/uL Lymphocytes # 0.8 L (1.0-4.8) k/uL Monocytes # 0.5 (0-1.0) k/uL Eosinophils # 0.1 (0-0.7) k/uL Basophils # 0.0 (0-0.2) k/uL PT 12.8 H (9.0-12.0) sec INR 1.3 H (<1.2) APTT 23.0 (22.0-30.0) sec Sodium 138 (137-145) mmol/L Potassium 4.9 (3.5-5.1) mmol/L Chloride 107 (98-107) mmol/L Carbon Dioxide 24 (22-30) mmol/L Anion Gap 7 mmol/L BUN 22 H (7-17) mg/dL Creatinine 0.67 (0.52-1.04) mg/dL Est GFR (CKD-EPI)AfAm >90 (>60 ml/min/1.73 sqM) Est GFR (CKD-EPI)NonAf 83 (>60 ml/min/1.73 sqM) Glucose 99 (74-99) mg/dL Calcium 9.4 (8.4-10.2) mg/dL Magnesium 1.8 (1.6-2.3) mg/dL Total Bilirubin 1.0 (0.2-1.3) mg/dL AST 42 H (14-36) U/L ALT 23 (4-34) U/L Alkaline Phosphatase 60 (38-126) U/L Troponin I (0.000-0.034) ng/mL Total Protein 6.5 (6.3-8.2) g/dL Albumin 3.6 (3.5-5.0) g/dL Lipase 35 (23-300) U/L 09/04/19 Range/Units 04:40 WBC (3.8-10.6) k/uL RBC (3.80-5.40) m/uL Hgb (11.4-16.0) gm/dL Hct (34.0-46.0) % MCV (80.0-100.0) fL MCH (25.0-35.0) pg MCHC (31.0-37.0) g/dL RDW (11.5-15.5) % Plt Count (150-450) k/uL Neutrophils % % Lymphocytes % % Monocytes % % Eosinophils % % Basophils % % Neutrophils # (1.3-7.7) k/uL Lymphocytes # (1.0-4.8) k/uL Monocytes # (0-1.0) k/uL Eosinophils # (0-0.7) k/uL Basophils # (0-0.2) k/uL PT (9.0-12.0) sec INR (<1.2) APTT (22.0-30.0) sec Sodium (137-145) mmol/L Potassium (3.5-5.1) mmol/L Chloride (98-107) mmol/L Carbon Dioxide (22-30) mmol/L Anion Gap mmol/L BUN (7-17) mg/dL Creatinine (0.52-1.04) mg/dL Est GFR (CKD-EPI)AfAm (>60 ml/min/1.73 sqM) Est GFR (CKD-EPI)NonAf (>60 ml/min/1.73 sqM) Glucose (74-99) mg/dL Calcium (8.4-10.2) mg/dL Magnesium (1.6-2.3) mg/dL Total Bilirubin (0.2-1.3) mg/dL AST (14-36) U/L ALT (4-34) U/L Alkaline Phosphatase (38-126) U/L Troponin I <0.012 (0.000-0.034) ng/mL Total Protein (6.3-8.2) g/dL Albumin (3.5-5.0) g/dL Lipase (23-300) U/L - EKG Data -: EKG Interpreted by Me (CBC shows A. fib with RVR 111 QRS 70 QTc 448) Disposition Clinical Impression: Atrial fibrillation with RVR, Chest pain, Chronic a-fib Disposition: ADMITTED IP TO THIS HOSP Condition: Fair Is patient prescribed a controlled substance at d/c from ED?: No Referrals: Jhonny Ryan DO [Primary Care Provider] - 1-2 days
[2019-09-04] MEDS ORDERED: SODIUM CHLORIDE 0.9% 1,000 ML IV STA ×2 (04:06)
[2019-09-04] MEDS ORDERED: NITROGLYCERIN SL TABS 0.4 MG TAB SUBLINGUAL PRN (04:06)
[2019-09-04] MEDS ORDERED: DILTIAZEM DRIP BOLUS FROM BAG 1 MG SOLN IV ONE (04:06)
[2019-09-04] MEDS ORDERED: DILTIAZEM 125 MG in SODIUM CHLORIDE 0.9% 100 ML IV SCH (04:15)
[2019-09-04 04:54] LABS: Basophils % (A) 0 %; Eosinophils # (A) 0.1 k/uL (0-0.7); Eosinophils % (A) 2 %; HCT 48.4 % (34.0-46.0); HGB 15.7 gm/dL (11.4-16.0); Lymphocytes # (A) 0.8 k/uL (1.0-4.8); Lymphocytes % (A) 11 %; MCH 31.1 pg (25.0-35.0); MCHC 32.4 g/dL (31.0-37.0); Mean Platelet Volume 8.6; Monocytes # (A) 0.5 k/uL (0-1.0); Monocytes % (A) 7 %; Neutrophils # (A) 5.8 k/uL (1.3-7.7); Neutrophils % (A) 78 %; Platelet Count 156 k/uL (150-450); RBC 5.04 m/uL (3.80-5.40); RDW 14.4 % (11.5-15.5); WBC 7.5 k/uL (3.8-10.6)
[2019-09-04 05:19] LABS: ALT 23 U/L (4-34); AST 42 U/L (14-36); African American GFR (CKD) >90 (>60 ml/min/1.73 sqM); Albumin 3.6 g/dL (3.5-5.0); Alkaline Phosphatase 60 U/L (38-126); Anion Gap 7 mmol/L; Blood Urea Nitrogen 22 mg/dL (7-17); Calcium 9.4 mg/dL (8.4-10.2); Carbon Dioxide 24 mmol/L (22-30); Chloride 107 mmol/L (98-107); Glucose 99 mg/dL (74-99); Magnesium 1.8 mg/dL (1.6-2.3); Non-African American GFR(CKD) 83 (>60 ml/min/1.73 sqM); Sodium 138 mmol/L (137-145); Total Protein 6.5 g/dL (6.3-8.2)
[2019-09-04 05:22] LABS: INR 1.3 (<1.2); Prothrombin Time 12.8 sec (9.0-12.0)
--- NOTE | 2019-09-04 05:31 | XR ---
EXAMINATION TYPE: XR chest 1V portable DATE OF EXAM: 09/04/2019 COMPARISON: 05/10/2016 HISTORY: Chest pain TECHNIQUE: Single view FINDINGS: There is no heart failure nor confluent pneumonic infiltrate. There are no hilar masses. Th ere are chest leads. Costophrenic angles are clear. IMPRESSION: No active cardiopulmonary disease. No change.
[2019-09-04 05:38] LABS: Potassium 4.9 mmol/L (3.5-5.1)
[2019-09-04] MEDS ORDERED: MORPHINE SULFATE 4 MG/ML SYRINGE IV PRN (05:52)
[2019-09-04] MEDS ORDERED: NITROGLYCERIN OINT 1 INCH/GM PACKET TOPICAL STA ×2 (08:18→08:28)
[2019-09-04] MEDS: METOPROLOL TARTRATE 50 MG TAB PO SCH ×2 (08:36→20:39)
--- NOTE | 2019-09-04 12:01 | ECHOF ---
Referral Reason:CHEST PAIN MEASUREMENTS -------- HEIGHT: 154.9 cm WEIGHT: 72.6 kg BP: RVIDd: 2.3 cm (< 3.3) IVSd: 1.1 cm (0.6 - 1.1) LVIDd: 3.2 cm (3.9 - 5.3) LVPWd: 1.2 cm (0.6 - 1.1) IVSs: 1.5 cm LVIDs: 2.2 cm LVPWs: 1.7 cm Ao Diam: 3.3 cm (2.0 - 3.7) AV Cusp: 1.8 cm (1.5 - 2.6) LA Diam: 3.5 cm (2.7 - 3.8) RAP: 5.00 mmHg RVSP: 43.56 mmHg FINDINGS -------- Atrial fibrillation. This was a technically good study. The left ventricular size is normal. There is borderline concentric left ventricular hypertrophy. Overall left ventricular systolic function is normal with, an EF between 55 - 60 %. Left ventricul ar fillimg pressure cannot be estimated due to Atrial fibrillation. The right ventricle is normal in size. The left atrial size is normal. RA appears enlarged. Aortic valve is trileaflet and is mildly thickened. The mitral valve is normal. The mitral valve leaflets are mildly thickened. Mild mitral annular c alcification present. Moderate mitral regurgitation is present. The tricuspid valve appears structurally normal. Moderate to severe tricuspid regurgitation present . There is mild pulmonary hypertension. The right ventricular systolic pressure, as measured by D oppler, is 43.56mmHg. There is no pulmonic regurgitation present. The aortic root size is normal. Normal inferior vena cava with normal inspiratory collapse consistent with estimated right atrial pre ssure of 5 mmHg. There is no pericardial effusion. CONCLUSIONS -------- 1. Atrial fibrillation. 2. This was a technically good study. 3. The left ventricular size is normal. 4. There is borderline concentric left ventricular hypertrophy. 5. Overall left ventricular systolic function is normal with, an EF between 55 - 60 %. 6. Left ventricular fillimg pressure cannot be estimated due to Atrial fibrillation. 7. The right ventricle is normal in size. 8. The left atrial size is normal. 9. RA appears enlarged. 10. Aortic valve is trileaflet and is mildly thickened. 11. The mitral valve is normal. 12. The mitral valve leaflets are mildly thickened. 13. Mild mitral annular calcification present. 14. Moderate mitral regurgitation is present. 15. The tricuspid valve appears structurally normal. 16. Moderate to severe tricuspid regurgitation present. 17. There is mild pulmonary hypertension. 18. The right ventricular systolic pressure, as measured by Doppler, is 43.56mmHg. 19. There is no pulmonic regurgitation present. 20. The aortic root size is normal. 21. Normal inferior vena cava with normal inspiratory collapse consistent with estimated right atrial pressure of 5 mmHg. 22. There is no pericardial effusion. [employer] TEAM MEMBER: Sherrie Lua RDCS
[2019-09-04] MEDS ORDERED: MULTIVITAMINS, THERA 1 EACH TAB PO SCH (12:30)
[2019-09-04] MEDS: KETOROLAC 30 MG/ML 1 ML VIAL IVP PRN ×2 (13:28→20:38)
--- NOTE | 2019-09-04 14:49 | P.HPIM ---
History of Present Illness Patient is a pleasant 79-year-old female came in with complaints of left lower rib cage pain sharp in nature changes with movement moderate severity nonradiating. Not associated diaphoresis nausea vomiting. Patient is found to be in atrial fibrillation in the appendectomy subsequently admitted and was started on Cardizem drip. Patient has known history of A. fib today takes on for milligrams twice a day of metoprolol which is being increased to 50 mg twice a day and patient is on Eliquis which is being resumed and continued. Patient troponins are negative. Patient's INR is 1.3. Patient denied any GI bleed at this time patient had any fever chills dysuria no signs or symptoms of infection no evidence of dehydration at this time patient denied diarrhea. Review of Systems REVIEW OF SYSTEMS: CONSTITUTIONAL: No fever, no malaise, no fatigue. HEENT: No recent visual problems or hearing problems. Denied any sore throat. CARDIOVASCULAR: No orthopnea, PND, no palpitations, no syncope. PULMONARY: No shortness of breath, no cough, no hemoptysis. GASTROINTESTINAL: No diarrhea, no nausea, no vomiting, no abdominal pain. NEUROLOGICAL: No headaches, no weakness, no numbness. HEMATOLOGICAL: Denies any bleeding or petechiae. GENITOURINARY: Denies any burning micturition, frequency, or urgency. MUSCULOSKELETAL/RHEUMATOLOGICAL: Denies any joint pain, swelling, or any muscle pain. ENDOCRINE: Denies any polyuria or polydipsia. The rest of the 14-point review of systems is negative. 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 Father Additional Family Medical History / Comment(s): Father at the age of 83yrs from heart disease. Medications and Allergies Home Medications Medication Instructions Recorded Confirmed Type Calcium Carbonate [Calcium] 600 mg PO AC-LUNCH 04/26/16 05/31/16 History Cholecalciferol [Vitamin D3 (25 4,000 unit PO AC-LUNCH 04/26/16 09/04/19 History Mcg = 1000 Iu)] Ipratropium [place] 0.06%Nasal 1 spray EA NOSTRIL DAILY 04/26/16 09/04/19 History [Atrovent Nasal 0.06%] Levothyroxine Sodium [Synthroid] 88 mcg PO DAILY 04/26/16 09/04/19 History Methotrexate Sodium [Methotrexate] 7.5 mg PO GALVAN 04/26/16 09/04/19 History Multivitamins, Thera [Multivitamin 1 tab PO AC-LUNCH 04/26/16 09/04/19 History (formulary)] predniSONE 5 mg PO DAILY 04/26/16 09/04/19 History Apixaban [Eliquis] 5 mg PO BID #60 tab 04/29/16 09/04/19 Rx Atorvastatin Calcium [Lipitor] 20 mg PO DAILY 09/04/19 09/04/19 History Metoprolol Tartrate [Lopressor] 25 mg PO BID 09/04/19 09/04/19 History Allergies Allergy/AdvReac Type Severity Reaction Status Date / Time clindamycin Allergy Rash/Hives Verified 09/04/19 08:30 erythromycin base Allergy Rash/Hives Verified 09/04/19 08:30 infliximab [From Remicade] Allergy THROAT Verified 09/04/19 08:30 Swelling Physical Exam Vitals: Vital Signs Temp Pulse Pulse Resp BP Pulse Ox 09/04/19 12:00 71 09/04/19 11:15 97.9 F 71 16 115/72 95 09/04/19 10:00 76 16 129/65 95 09/04/19 08:13 85 16 129/65 99 09/04/19 07:35 97.8 F 84 16 107/70 98 09/04/19 05:32 70 18 117/76 98 09/04/19 05:08 95 18 98/66 97 09/04/19 04:02 98.1 F 114 H 18 121/92 100 Intake and Output 09/03/19 09/04/19 09/04/19 22:59 06:59 14:59 Intake Total 16.583 Balance 16.583 Intake: Intake, IV Titration 16.583 Amount Diltiazem 125 mg In 16.583 Sodium Chloride 0.9% 100 ml @ 5 MG/HR 5 mls/hr IV .Q24H [facility] Rx#:[id number] Other: Weight 72.575 kg PHYSICAL EXAMINATION: GENERAL: The patient is alert and oriented x3, not in any acute distress. Well developed, well nourished. HEENT: Pupils are round and equally reacting to light. EOMI. No scleral icterus. No conjunctival pallor. Normocephalic, atraumatic. No pharyngeal erythema. No thyromegaly. CARDIOVASCULAR: S1 and S2 present. No murmurs, rubs, or gallops. Irregularly irregular rhythm PULMONARY: Chest is clear to auscultation, no wheezing or crackles. ABDOMEN: Soft, nontender, nondistended, normoactive bowel sounds. No palpable organomegaly. MUSCULOSKELETAL: No joint swelling or deformity. EXTREMITIES: No cyanosis, clubbing, or pedal edema. NEUROLOGICAL: Gross neurological examination did not reveal any focal deficits. SKIN: No rashes. Results CBC & Chem 7: 09/04/19 04:40 09/04/19 04:40 Labs: Abnormal Lab Results - Last 24 Hours (Table) 09/04/19 09/04/19 09/04/19 Range/Units 04:40 04:40 04:40 Hct 48.4 H (34.0-46.0) % Lymphocytes # 0.8 L (1.0-4.8) k/uL PT 12.8 H (9.0-12.0) sec INR 1.3 H (<1.2) BUN 22 H (7-17) mg/dL AST 42 H (14-36) U/L Assessment and Plan Plan: -Chronic atrial fibrillation with the increased heart rate presently rate controlled patient is being switched to oral metoprolol Cardizem is being discontinued. Patient will be continued on Eliquis. Cardiology will evaluate the patient -chest pain appears to be musculoskeletal negative troponins, atypical for coronary artery disease. Patient was started on Toradol along with Pepcid for musculoskeletal pain -100 arthritis history patient doesn't have any rheumatoid flare up at this time patient will continued on home with Hyperlipidemia -Hypothyroidism
--- NOTE | 2019-09-04 15:46 | CONS ---
CONSULTATION CHIEF COMPLAINT: Chest pain. Michelle is an 79-year-old lady with history of atrial fibrillation, dyslipidemia, and hypothyroidism who presented to hospital complaining of chest pain. She describes it as a sharp pain over the left lateral side of the chest that gets somewhat worse when she takes a deep breath. She mostly has it when she is lying down, but she feels better when she sits up and seems somewhat positional and respirophasic. She was also in atrial fibrillation with rapid ventricular rate, on her arrival. Heart rate is better controlled this morning. The patient does not have any exertional chest pain. Does not have leg edema, shortness of breath, PND or orthopnea. She had a cardiac evaluation by Dr. Reynolds in 2017, had an echocardiogram that showed biatrial enlargement with normal LV function. Had a cardiac catheterization at that time that revealed mild coronary artery disease with normal LV systolic function. She had been followed by Dr. Reynolds regularly since that time and has done fairly well. At the time of my evaluation patient appears comfortable at rest. One set of troponin is negative. Potassium is 4.9 creatinine is 0.6. Hemoglobin is normal at 15.7. PAST MEDICAL HISTORY: Significant for hypothyroidism, dyslipidemia, arthritis, and permanent atrial fibrillation. MEDICATIONS: At home include Eliquis 5 b.i.d., Lopressor 25 b.i.d., prednisone, Lipitor, Synthroid, methotrexate. ALLERGIES: CLINDAMYCIN, ERYTHROMYCIN, REMICADE. FAMILY HISTORY: Negative for premature coronary artery disease. SOCIAL HISTORY: Negative for current smoking, EtOH abuse, or drug abuse. REVIEW OF SYSTEMS: HEENT is unremarkable. Cardiac as described above. Respiratory negative. GI negative. Genitourinary negative. Allergy . Skin negative. Musculoskeletal negative. Endocrine negative. Constitutional negative. Oncological negative. SOLVENT PROCESS EXTRACTOR OPERATOR negative. DERM negative. Oncological negative. Rest of the system review is not relevant. PHYSICAL EXAMINATION: On exam, patient is afebrile. Heart rate is 85 beats per minute. Blood pressure is 130/65, respiratory rate is 16, O2 saturation is 99%. There is no jugular venous distention. Carotid upstroke is normal. There is no bruit. Chest exam reveals good air entry bilaterally. Heart exam reveals first and second heart sounds, irregular rhythm and a systolic murmur at the left lower sternal border. ABDOMEN: Soft. Exam of extremities did not reveal any edema. Peripheral pulses are felt. SOLVENT PROCESS EXTRACTOR OPERATOR exam did not reveal focal neurological deficits. LABS: Show a hemoglobin of 15.7, platelet count is 156, potassium is 4.9 creatinine is 0.6. Troponin is negative. ASSESSMENT: 1. Permanent atrial fibrillation with poorly controlled ventricular rate. 2. Precordial chest pain, sharp, atypical probably musculoskeletal. PLAN: I will obtain serial troponins. A 2D echo, control the heart rate and will decide on further course of action based on how she does. MMODL / IJN: [id number] /
--- NOTE | 2019-09-04 16:20 | XR ---
EXAMINATION TYPE: XR ribs bilateral, 8 views DATE OF EXAM: 09/04/2019 COMPARISON: Chest 09/04/2019 HISTORY: 79-year-old female possible rib fracture, right-sided pain FINDINGS: Possible trace left pleural effusion. Mild cardiomegaly. Interstitial prominence appears largely crew caller abdias. No displaced rib fracture seen on either side. IMPRESSION: Possible small left pleural effusion. No displaced rib fracture seen on either side.
[2019-09-04] MEDS: FAMOTIDINE 20 MG TAB PO SCH (20:38)
[2019-09-04] MEDS: APIXABAN 5 MG TAB PO SCH (20:39)
[2019-09-05] MEDS: KETOROLAC 30 MG/ML 1 ML VIAL IVP PRN (05:47)
[2019-09-05 06:43] LABS: Cholesterol 100 mg/dL (<200); HDL Cholesterol 55 mg/dL (40-60); LDL Cholesterol,Calculated 33 mg/dL (0-99); Triglycerides 60 mg/dL (<150)
[2019-09-05 07:37] VITALS: PULSE 65; RESP 16; TEMP 97.9
[2019-09-05] MEDS: APIXABAN 5 MG TAB PO SCH (08:33)
[2019-09-05] MEDS: FAMOTIDINE 20 MG TAB PO SCH (08:33)
[2019-09-05] MEDS: METOPROLOL TARTRATE 50 MG TAB PO SCH (08:33)
[2019-09-05] MEDS ORDERED: ASPIRIN 325 MG TAB PO STA (08:42)
[2019-09-05] MEDS ORDERED: ATORVASTATIN 20 MG TAB PO SCH (09:00)
[2019-09-05] MEDS ORDERED: predniSONE 5 MG TAB PO SCH (09:00)
[2019-09-05] MEDS ORDERED: LEVOTHYROXINE 88 MCG TAB PO SCH (09:00)
[2019-09-05] MEDS ORDERED: ASPIRIN 325 MG TAB PO SCH (09:00)
[2019-09-05 11:23] VITALS: BP 119/92
--- NOTE | 2019-09-05 11:47 | P.PN ---
Subjective Progress Note Date: 09/05/19 This is an 79-year-old female patient with history of persistent atrial fibrillation, hyperlipidemia, hypothyroidism, who follows with Dr. Reynolds in the office. She presented to the hospital with some atypical chest pain as well as atrial fibrillation with a rapid ventricular response. She was seen and examined this morning, continues to be in A. fib her heart rate is mostly in the 60-70 range, she did have one spike of heart rate up into the 150 range with ambulation, but for the most part she is staying in the 60s. Echocardiogram with Doppler study was performed which revealed an ejection fraction of 55-60% with moderate MR and moderate to severe TR. She is experiencing some discomfort it's mostly beneath the left breast, and the rib area, the pain seems to come on with deep breathing or on palpation, very pleuritic in nature. Troponins were negative 3. Objective - Vital Signs Vital signs: Vital Signs Temp 97.9 F 09/05/19 07:31 Pulse 65 09/05/19 07:31 Resp 16 09/05/19 11:20 BP 119/92 09/05/19 11:20 Pulse Ox 84 L 09/05/19 11:20 Intake & Output 09/04/19 09/05/19 09/05/19 18:59 06:59 18:59 Intake Total 16.583 100 120 Output Total 600 Balance 16.583 -500 120 Weight 72.575 kg 75.2 kg Intake: Intake, IV Titration 16.583 100 Amount Diltiazem 125 mg In 16.583 Sodium Chloride 0.9% 100 ml @ 5 MG/HR 5 mls/hr IV .Q24H NEGRO Rx#:[id number] Sodium Chloride 0.9% 1, 100 000 ml @ 100 mls/hr IV . Q10H STA Rx#:[id number] Oral 120 Output: Urine 600 Other: Voiding Method Toilet - Exam PHYSICAL EXAMINATION: GENERAL: 79-year-old female in no acute distress at the time of my examination HEENT: Head is atraumatic, normocephalic. Pupils equal, round. Sclera anicteric. Conjunctiva are clear. Mucous membranes of the mouth are moist. Neck is supple. There is no elevated jugular venous pressure. No carotid bruit is heard. HEART EXAMINATION: Heart S1 and S2 irregularly irregular a systolic murmur is heard CHEST EXAMINATION: Lungs are clear to auscultation and precussion. Positive left chest wall tenderness is noted on palpation and with deep breathing. ABDOMEN: Soft, nontender. Bowel sounds are heard. No organomegaly noted. EXTREMITIES: 2+ peripheral pulses with no evidence of peripheral edema and no calf tenderness noted. NEUROLOGIC patient is awake, alert and oriented 3 . . - Labs CBC & Chem 7: 09/04/19 04:40 09/04/19 04:40 Assessment and Plan Plan: Assessment and plan #1 persistent atrial fibrillation, rate today is under adequate control. #2 pleuritic chest pain, atypical for acute coronary syndrome. Troponins were negative 3. #3 hyperlipidemia #4 hypothyroidism Plan From cardiology's perspective, the patient may be able to be discharged home today. We will make her a follow-up appointment to see Dr. Reynolds in the office post discharge. DNP note has been reviewed, I agree with a documented findings and plan of care. Patient was seen and examined.
--- NOTE | 2019-09-05 12:23 | P.DS ---
Providers Date of admission: 09/04/19 05:52 Attending physician: Sanjay Lundberg Consults: 09/04/19 05:52 Consult Physician Urgent Consulting Provider: Damien Reynolds Consult Reason/Comments: cp Do you want consulting provider notified?: Yes [facility] [place] [facility] Course: 79-year-old female came in with complaints of left lower rib cage pain sharp in nature changes with movement moderate severity nonradiating. Not associated diaphoresis nausea vomiting. Patient is found to be in atrial fibrillation in the appendectomy subsequently admitted and was started on Cardizem drip. Patient has known history of A. fib today takes on for milligrams twice a day of metoprolol which is being increased to 50 mg twice a day and patient is on Eliquis which is being resumed and continued. Patient troponins are negative. Patient's INR is 1.3. Patient denied any GI bleed at this time patient had any fever chills dysuria no signs or symptoms of infection no evidence of dehydration at this time patient denied diarrhea. 08/06/2019 Patient the heart rate is well controlled there are episodes of on and off increase of for heart rate whenever she exerts herself, metoprolol dose was increased. Patient chest pain is much better with Toradol, to be x-ray didn't show any rib fractures but there is a small possible pleural effusion but her pain is better with the anti-inflammatory medication patient will be discharged on as needed meloxicam for about 15 days along with GI prophylaxis. Her chest pain is noncardiac musculoskeletal was evaluated by cardiology. PHYSICAL EXAMINATION: GENERAL: The patient is alert and oriented x3, not in any acute distress. Well developed, well nourished. HEENT: Pupils are round and equally reacting to light. EOMI. No scleral icterus. No conjunctival pallor. Normocephalic, atraumatic. No pharyngeal erythema. No thyromegaly. CARDIOVASCULAR: S1 and S2 present. No murmurs, rubs, or gallops. PULMONARY: Chest is clear to auscultation, no wheezing or crackles. ABDOMEN: Soft, nontender, nondistended, normoactive bowel sounds. No palpable organomegaly. MUSCULOSKELETAL: No joint swelling or deformity. EXTREMITIES: No cyanosis, clubbing, or pedal edema. NEUROLOGICAL: Gross neurological examination did not reveal any focal deficits. SKIN: No rashes. Reason for to my HPI for further details of hospital physician course and other medical problems that were addressed here Patient Condition at Discharge: Fair Plan - Discharge Summary Discharge Rx Participant: No New Discharge Prescriptions: New Metoprolol Tartrate [Lopressor] 50 mg PO BID #60 tab Meloxicam 7.5 mg PO DAILY PRN #30 tablet PRN Reason: Pain Famotidine [Pepcid] 20 mg PO BID #30 tablet Continue Multivitamins, Thera [Multivitamin (formulary)] 1 tab PO AC-LUNCH Cholecalciferol [Vitamin D3 (25 Mcg = 1000 Iu)] 4,000 unit PO AC-LUNCH Calcium Carbonate [Calcium] 600 mg PO AC-LUNCH Methotrexate Sodium [Methotrexate] 7.5 mg PO GALVAN Levothyroxine Sodium [Synthroid] 88 mcg PO DAILY Ipratropium [place] 0.06%Nasal [Atrovent Nasal 0.06%] 1 spray EA NOSTRIL DAILY predniSONE 5 mg PO DAILY Apixaban [Eliquis] 5 mg PO BID #60 tab Atorvastatin Calcium [Lipitor] 20 mg PO DAILY Discontinued Metoprolol Tartrate [Lopressor] 25 mg PO BID Discharge Medication List Calcium Carbonate [Calcium] 600 mg PO AC-LUNCH 04/26/16 [History] Cholecalciferol [Vitamin D3 (25 Mcg = 1000 Iu)] 4,000 unit PO AC-LUNCH 04/26/16 [History] Ipratropium [place] 0.06%Nasal [Atrovent Nasal 0.06%] 1 spray EA NOSTRIL DAILY 04/26/16 [History] Levothyroxine Sodium [Synthroid] 88 mcg PO DAILY 04/26/16 [History] Methotrexate Sodium [Methotrexate] 7.5 mg PO GALVAN 04/26/16 [History] Multivitamins, Thera [Multivitamin (formulary)] 1 tab PO AC-LUNCH 04/26/16 [History] predniSONE 5 mg PO DAILY 04/26/16 [History] Apixaban [Eliquis] 5 mg PO BID #60 tab 04/29/16 [Rx] Atorvastatin Calcium [Lipitor] 20 mg PO DAILY 09/04/19 [History] Metoprolol Tartrate [Lopressor] 50 mg PO BID #60 tab 09/04/19 [Rx] Famotidine [Pepcid] 20 mg PO BID #30 tablet 09/05/19 [Rx] Meloxicam 7.5 mg PO DAILY PRN #30 tablet 09/05/19 [Rx] Follow up Appointment(s)/Referral(s): Jhonny Ryan DO [Primary Care Provider] - 3 Days Patient Instructions/Handouts: A-fib (Atrial Fibrillation) (DC), Chest Pain (DC) Discharge Disposition: HOME SELF-CARE
[2019-09-09] MEDS ORDERED: METHOTREXATE SODIUM 2.5 MG TAB PO SCH (09:00)
== END 2019-09-05 14:31 | disposition home or self-care (01) | DRG 310 ==
LOC: EC 03:57 → 3SCARD 05:52
PROVIDERS: ADMIT Hospitalist; ATTEND Hospitalist
DX: I48.21 Permanent atrial fibrillation (principal); E78.5 Hyperlipidemia, unspecified; I07.1 Rheumatic tricuspid insufficiency; E03.9 Hypothyroidism, unspecified; M06.9 Rheumatoid arthritis, unspecified; I25.10 Atherosclerotic heart disease of native coronary artery without angina pectoris; R07.89 Other chest pain; M19.90 Unspecified osteoarthritis, unspecified site; Z11.59 Encounter for screening for other viral diseases; Z79.01 Long term (current) use of anticoagulants; Z79.890 Hormone replacement therapy; Z79.899 Other long term (current) drug therapy; Z88.1 Allergy status to other antibiotic agents; Z88.8 Allergy status to other drugs, medicaments and biological substances; Z90.710 Acquired absence of both cervix and uterus; Z87.891 Personal history of nicotine dependence; Z85.819 Personal history of malignant neoplasm of unspecified site of lip, oral cavity, and pharynx; Z98.890 Other specified postprocedural states; Z82.49 Family history of ischemic heart disease and other diseases of the circulatory system
CPT/HCPCS: 36415; 71045; 71110; 80053; 80061; 83690; 83735; 84443; 84484; 85025; 85610; 85730; 93005; 93306; 96361; 96365; 96366; 96375; 96376; 99285

== ENCOUNTER → 2020-01-22 | Outpatient (CLI) | payer MEDICARE, BC ==
[2020-01-22 12:17] LABS: Basophils % (A) 0 %; Eosinophils # (A) 0.1 k/uL (0-0.7); Eosinophils % (A) 1 %; HGB 16.9 gm/dL (11.4-16.0); Lymphocytes # (A) 0.9 k/uL (1.0-4.8); Lymphocytes % (A) 13 %; MCHC 32.5 g/dL (31.0-37.0); MCV 98.5 fL (80.0-100.0); Mean Platelet Volume 8.2; Monocytes # (A) 0.5 k/uL (0-1.0); Monocytes % (A) 7 %; Neutrophils # (A) 5.3 k/uL (1.3-7.7); Neutrophils % (A) 77 %; Platelet Count 181 k/uL (150-450); RBC 5.28 m/uL (3.80-5.40); RDW 13.9 % (11.5-15.5)
[2020-01-22 19:07] LABS: ALT 30 U/L (8-44); AST 32 U/L (13-35); C Reactive Protein <0.4 mg/dL (0.0-0.8); Non-African American GFR(CKD) 60.4 (60.0-200.0)
[2020-01-22 19:30] LABS: Erythrocyte Sedimentation Rate 3 mm/Hr (0-30)
== END | disposition home or self-care (01) ==
LOC: LABWHC1 10:07
PROVIDERS: ATTEND Internal Medicine Rheumatology
DX: E03.9 Hypothyroidism, unspecified (principal); E55.9 Vitamin D deficiency, unspecified; M05.79 Rheumatoid arthritis with rheumatoid factor of multiple sites without organ or systems involvement
CPT/HCPCS: 36415; 82306; 82565; 84439; 84443; 84450; 84460; 85025; 85652; 86140

== ENCOUNTER → 2020-04-15 | Outpatient (CLI) | payer MEDICARE, BC ==
--- NOTE | 2020-04-15 12:40 | XR ---
EXAMINATION TYPE: XR abdomen 2V DATE OF EXAM: 04/15/2020 CLINICAL HISTORY: Lower abdominal pain with cramping and bloating. TECHNIQUE: Supine and upright views of the abdomen are obtained. COMPARISON: CT abdomen and pelvis July 09, 2016. FINDINGS: Scattered gas is seen in non-distended stomach and small bowel loops. Gas and fecal mater ial is seen in non-distended colon. Moderate axial joint space loss in both hips. Lung bases are khalida r. No pneumoperitoneum. No suspicious calcifications. IMPRESSION: Overall nonobstructive bowel gas pattern remains present.
== END | disposition home or self-care (01) ==
LOC: RADXRYALE 11:54
PROVIDERS: ATTEND Physician Assistant Medical
DX: R10.30 Lower abdominal pain, unspecified (principal)
CPT/HCPCS: 74019

== ENCOUNTER 2020-04-17 10:32 | Inpatient (IN) | payer MEDICARE, BC ==
[2020-04-17] MEDS ORDERED: ASPIRIN 81 MG PO STA (11:08)
--- NOTE | 2020-04-17 11:14 | ED ---
Abdominal Pain HPI - General Chief Complaint: Abdominal Pain Stated Complaint: lt sided pain Time Seen by Provider: 04/17/20 10:43 Source: patient Limitations: no limitations - History of Present Illness Initial Comments: 80-year-old female with history of A. fib presents emergency Department with chief complaint of left-sided pain. Patient reports her past few weeks she has been problems with gas and indigestion. States she saw her primary care physician 2 days ago and was advised to start on MiraLAX. Patient reports taken 1 dose of MiraLAX yesterday which improved her symptoms. States she has been having nonbloody diarrhea as well. However, last night patient developed sharp pain under her left breast that radiated to her left shoulder and down her arm, as well as to her back. Patient reports the pain was ongoing throughout the whole night and now the area is only sore. States the pain was exacerbated when taking deep breaths. states she felt slightly short of breath but only due to the pain. She denied any nausea, vomiting, diaphoretic episodes, lighthe adedness, dizziness, headaches, blurry vision, one-sided weakness or paresthesias.she does takeeliquis for afib. she does report history of multiple abdominal surgeries. - Related Data Home Medications Medication Instructions Recorded Confirmed Calcium Carbonate [Calcium] 600 mg PO AC-LUNCH 04/26/16 04/17/20 Ipratropium [place] 0.06%Nasal 1 spray EA NOSTRIL DAILY 04/26/16 04/17/20 [Atrovent Nasal 0.06%] Levothyroxine Sodium [Synthroid] 88 mcg PO DAILY 04/26/16 04/17/20 Multivitamins, Thera [Multivitamin 1 tab PO AC-LUNCH 04/26/16 04/17/20 (formulary)] metHOTREXate sodium [Methotrexate] 7.5 mg PO GALVAN 04/26/16 04/17/20 predniSONE 5 mg PO DAILY 04/26/16 04/17/20 Atorvastatin Calcium [Lipitor] 20 mg PO DAILY 09/04/19 04/17/20 Cetirizine HCl [Zyrtec] 10 mg PO DAILY 04/17/20 04/17/20 Cholecalciferol (Vitamin D3) 4,000 unit PO DAILY 04/17/20 04/17/20 [Vitamin D3 (4,000 Iu)] Famotidine [Pepcid] 20 mg PO DAILY 04/17/20 04/17/20 Folic Acid 0.8 mg PO DAILY 04/17/20 04/17/20 L.acidoph,Paracasei, B.lactis 1 cap PO DAILY 04/17/20 04/17/20 [Probiotic] Metoprolol Tartrate [Lopressor] 50 mg PO BID 04/17/20 04/17/20 Previous Rx's Medication Instructions Recorded Apixaban [Eliquis] 5 mg PO BID #60 tab 04/29/16 Allergies Allergy/AdvReac Type Severity Reaction Status Date / Time clindamycin Allergy Rash/Hives Verified 04/17/20 11:51 erythromycin base Allergy Rash/Hives Verified 04/17/20 11:51 infliximab [From Remicade] Allergy THROAT Verified 04/17/20 11:51 Swelling Review of Systems ROS Statement: Those systems with pertinent positive or pertinent negative responses have been documented in the HPI. ROS Other: All systems not noted in ROS Statement are negative. 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, past R hand infection POST SX, TINNITIUS History of Any Multi-Drug Resistant Organisms: None Reported Past Surgical History: Heart Catheterization, Hernia Repair, Hysterectomy, Orthopedic Surgery Additional Past Surgical History / Comment(s): eye surgery FOR DOUBLE VISION, HAND SX Past Anesthesia/Blood Transfusion Reactions: No Reported Reaction Past Psychological History: No Psychological Hx Reported Smoking Status: Former smoker Past Alcohol Use History: None Reported Past Drug Use History: None Reported - Past Family History Mother History Unknown: Yes Additional Family Medical History / Comment(s): Mother when pt was born. Father Family Medical History: Coronary Artery Disease (CAD) Additional Family Medical History / Comment(s): Father at the age of 83yrs from heart disease. General Exam Limitations: no limitations General appearance: alert, in no apparent distress Head exam: Present: atraumatic, normocephalic, normal inspection Eye exam: Present: normal appearance, PERRL, EOMI Pupils: Present: normal accommodation ENT exam: Present: normal exam, normal oropharynx, mucous membranes moist Neck exam: Present: normal inspection, full ROM. Absent: tenderness Respiratory exam: Present: normal lung sounds bilaterally. Absent: respiratory distress Cardiovascular Exam: Present: regular rate, normal rhythm, normal heart sounds GI/Abdominal exam: Present: soft. Absent: distended, tenderness, guarding, rebound, rigid Extremities exam: Present: normal inspection, full ROM, normal capillary refill, pedal edema (bilateral +1 pitting edema at baseline), other (palpable left DP and PT. other side detectable withpedal ultrasound.). Absent: tenderness, joint swelling, calf tenderness Back exam: Present: normal inspection, full ROM. Absent: tenderness, CVA tenderness (R), CVA tenderness (L) Neurological exam: Present: alert, oriented X3 Psychiatric exam: Present: normal affect, normal mood Skin exam: Present: warm, dry, intact, normal color Course Vital Signs 04/17/20 10:33 Temperature 98.2 F Pulse Rate 102 H Respiratory 18 Rate Blood Pressure 137/71 O2 Sat by Pulse 96 Oximetry Medical Decision Making - Medical Decision Making 80-year-old female with history of A. fib presents to the emergency department with a chief complaint of pain under the left breast. On physical examination, patient has no reproducible pain to palpation. There is no abdominal tenderness. This appears to be chest pain more likely than abdominal pain. EKG showing A. fib. Chest x-ray show mild left posterior pleural effusion. Initial troponin is negative. D-dimer within normal limits. CBC CMP unremarkable. BNP 2290. CT of abdomen and pelvis obtained shows an abdominal wall hernia of the sigmoid colon as well as small bowel but no signs of incarceration. This has been there for quite some time according to the patient. Patient's heart rate is alternating from the low teens to the 150s. Patient will be admitted for A. fib with RVR. Patient started on [address] Barillas also examined the patient and is in agreement with the treatment plan. Admitting physician is Dr. Randolph Cardiology consulted - Lab Data Result diagrams: 04/17/20 11:34 04/17/20 11:34 Lab Results 04/17/20 04/17/20 04/17/20 Range/Units 11:34 11:34 11:34 WBC 9.2 (3.8-10.6) k/uL RBC 4.84 (3.80-5.40) m/uL Hgb 14.9 (11.4-16.0) gm/dL Hct 46.7 H (34.0-46.0) % MCV 96.6 (80.0-100.0) fL MCH 30.7 (25.0-35.0) pg MCHC 31.8 (31.0-37.0) g/dL RDW 13.7 (11.5-15.5) % Plt Count 235 (150-450) k/uL MPV 8.4 Neutrophils % 88 % Lymphocytes % 4 % Monocytes % 7 % Eosinophils % 1 % Basophils % 0 % Neutrophils # 8.2 H (1.3-7.7) k/uL Lymphocytes # 0.3 L (1.0-4.8) k/uL Monocytes # 0.7 (0-1.0) k/uL Eosinophils # 0.1 (0-0.7) k/uL Basophils # 0.0 (0-0.2) k/uL PT 14.2 H (9.0-12.0) sec INR 1.4 H (<1.2) APTT 23.4 (22.0-30.0) sec D-Dimer 0.58 (<0.60) mg/L FEU Sodium 138 (137-145) mmol/L Potassium 4.3 (3.5-5.1) mmol/L Chloride 103 (98-107) mmol/L Carbon Dioxide 27 (22-30) mmol/L Anion Gap 8 mmol/L BUN 18 H (7-17) mg/dL Creatinine 0.67 (0.52-1.04) mg/dL Est GFR (CKD-EPI)AfAm >90 (>60 ml/min/1.73 sqM) Est GFR (CKD-EPI)NonAf 83 (>60 ml/min/1.73 sqM) Glucose 129 H (74-99) mg/dL Calcium 9.7 (8.4-10.2) mg/dL Magnesium 1.7 (1.6-2.3) mg/dL Total Bilirubin 0.7 (0.2-1.3) mg/dL AST 23 (14-36) U/L ALT 21 (4-34) U/L Alkaline Phosphatase 59 (38-126) U/L Troponin I (0.000-0.034) ng/mL NT-Pro-B Natriuret Pep pg/mL Total Protein 6.0 L (6.3-8.2) g/dL Albumin 3.3 L (3.5-5.0) g/dL Lipase 23 (23-300) U/L 04/17/20 04/17/20 Range/Units 11:34 11:34 WBC (3.8-10.6) k/uL RBC (3.80-5.40) m/uL Hgb (11.4-16.0) gm/dL Hct (34.0-46.0) % MCV (80.0-100.0) fL MCH (25.0-35.0) pg MCHC (31.0-37.0) g/dL RDW (11.5-15.5) % Plt Count (150-450) k/uL MPV Neutrophils % % Lymphocytes % % Monocytes % % Eosinophils % % Basophils % % Neutrophils # (1.3-7.7) k/uL Lymphocytes # (1.0-4.8) k/uL Monocytes # (0-1.0) k/uL Eosinophils # (0-0.7) k/uL Basophils # (0-0.2) k/uL PT (9.0-12.0) sec INR (<1.2) APTT (22.0-30.0) sec D-Dimer (<0.60) mg/L FEU Sodium (137-145) mmol/L Potassium (3.5-5.1) mmol/L Chloride (98-107) mmol/L Carbon Dioxide (22-30) mmol/L Anion Gap mmol/L BUN (7-17) mg/dL Creatinine (0.52-1.04) mg/dL Est GFR (CKD-EPI)AfAm (>60 ml/min/1.73 sqM) Est GFR (CKD-EPI)NonAf (>60 ml/min/1.73 sqM) Glucose (74-99) mg/dL Calcium (8.4-10.2) mg/dL Magnesium (1.6-2.3) mg/dL Total Bilirubin (0.2-1.3) mg/dL AST (14-36) U/L ALT (4-34) U/L Alkaline Phosphatase (38-126) U/L Troponin I <0.012 (0.000-0.034) ng/mL NT-Pro-B Natriuret Pep 2290 pg/mL Total Protein (6.3-8.2) g/dL Albumin (3.5-5.0) g/dL Lipase (23-300) U/L - EKG Data EKG Comments: A. fib Ventricular rate 100, QRS 78, QTC 420 Disposition Clinical Impression: Atrial fibrillation with RVR Disposition: ADMITTED IP TO THIS HOSP Condition: Good Is patient prescribed a controlled substance at d/c from ED?: No Referrals: Jhonny Ryan DO [Primary Care Provider] - 1-2 days Time of Disposition: 15:22
--- NOTE | 2020-04-17 11:48 | XR ---
EXAMINATION TYPE: XR chest 2V DATE OF EXAM: 04/17/2020 COMPARISON: 09/04/2019 HISTORY: Chest pain TECHNIQUE: 2 view chest FINDINGS: There is mild cardiomegaly. Pulmonary vasculature is normal. Small posterior pleural effusi ons are present IMPRESSION: 1. Small posterior pleural effusions likely on the left. 2. Mild cardiomegaly
[2020-04-17 11:55] LABS: Basophils % (A) 0 %; Eosinophils # (A) 0.1 k/uL (0-0.7); Eosinophils % (A) 1 %; HCT 46.7 % (34.0-46.0); HGB 14.9 gm/dL (11.4-16.0); Lymphocytes # (A) 0.3 k/uL (1.0-4.8); Lymphocytes % (A) 4 %; MCH 30.7 pg (25.0-35.0); MCHC 31.8 g/dL (31.0-37.0); MCV 96.6 fL (80.0-100.0); Mean Platelet Volume 8.4; Monocytes # (A) 0.7 k/uL (0-1.0); Monocytes % (A) 7 %; Neutrophils # (A) 8.2 k/uL (1.3-7.7); Neutrophils % (A) 88 %; Platelet Count 235 k/uL (150-450); RBC 4.84 m/uL (3.80-5.40); RDW 13.7 % (11.5-15.5); WBC 9.2 k/uL (3.8-10.6)
[2020-04-17 12:07] LABS: ALT 21 U/L (4-34); AST 23 U/L (14-36); African American GFR (CKD) >90 (>60 ml/min/1.73 sqM); Albumin 3.3 g/dL (3.5-5.0); Alkaline Phosphatase 59 U/L (38-126); Anion Gap 8 mmol/L; Blood Urea Nitrogen 18 mg/dL (7-17); Calcium 9.7 mg/dL (8.4-10.2); Carbon Dioxide 27 mmol/L (22-30); Chloride 103 mmol/L (98-107); Glucose 129 mg/dL (74-99); Lipase 23 U/L (23-300); Magnesium 1.7 mg/dL (1.6-2.3); Non-African American GFR(CKD) 83 (>60 ml/min/1.73 sqM); Potassium 4.3 mmol/L (3.5-5.1); Sodium 138 mmol/L (137-145); Total Bilirubin 0.7 mg/dL (0.2-1.3)
[2020-04-17 12:14] LABS: D-Dimer 0.58 mg/L FEU (<0.60); INR 1.4 (<1.2); Partial Thromboplastin Time 23.4 sec (22.0-30.0); Prothrombin Time 14.2 sec (9.0-12.0)
--- NOTE | 2020-04-17 14:28 | CT ---
EXAMINATION TYPE: CT abdomen pelvis w con DATE OF EXAM: 04/17/2020 COMPARISON: 07/09/2016 HISTORY: LUQ pain CT DLP: 792.6 mGycm CONTRAST: CT scan of the abdomen and pelvis is performed without Oral Contrast and with IV Contrast, patient in jected with 100 mL of Isovue 300. FINDINGS: LUNG BASES-: No visible nodule. No infiltrate. Small left effusion. LIVER/GB: No calcified gallstones. There is mild hepatic steatosis noted. No space occupying hepat ic lesion. Biliary tree is of normal caliber. PANCREAS: No inflammation. No distinct mass. SPLEEN: No splenic enlargement. No lesion seen. ADRENALS: No nodule. No thickening. KIDNEYS/BLADDER: No hydronephrosis. No nephrolithiasis. No distinct renal mass. Urinary bladder g rossly unremarkable. BOWEL: Normal appendix. Normal bowel caliber. No inflammation. There is left-sided spigelian hernia noted with hernia sac measuring 11.3 x 5 cm and contains a segment of sigmoid colon as well as small bowel. No evidence for strangulation at this time. Small fat-containing umbilical hernia noted as we ll. No evidence for dilated small or large bowel. No free air or abscess. GENITAL ORGANS: No gross abnormality. LYMPH NODES: No greater than 1cm abdominal or pelvic lymph nodes are appreciated. AORTA: No significant abnormality. OSSEOUS STRUCTURES: No significant abnormality is seen. OTHER: No significant additional abnormality is seen. IMPRESSION: 1. There is left-sided spigelian hernia noted with hernia sac measuring 11.3 x 5 cm and contains a se gment of sigmoid colon as well as small bowel. No evidence for strangulation at this time.
[2020-04-17] MEDS ORDERED: NITROGLYCERIN SL TABS 0.4 MG TAB SUBLINGUAL PRN (15:26)
[2020-04-17] MEDS ORDERED: niCARdipine 20 MG in SODIUM CHLORIDE 0.9% 192 ML IV SCH (15:30)
[2020-04-17] MEDS ORDERED: DILTIAZEM 125 MG in SODIUM CHLORIDE 0.9% 100 ML IV SCH (15:30)
[2020-04-17] MEDS ORDERED: DILTIAZEM DRIP BOLUS FROM BAG 1 MG SOLN IV ONE (16:09)
[2020-04-17] MEDS: METOPROLOL TARTRATE 50 MG TAB PO SCH (22:54)
[2020-04-17] MEDS: APIXABAN 5 MG TAB PO SCH (22:54)
--- NOTE | 2020-04-18 00:03 | P.HPIM ---
History of Present Illness H&P Date: 04/17/20 Chief Complaint: Chest Pain Patient is a 80-year-old female with a known history of atrial fibrillation on anticoagulation with Eliquis, rheumatoid arthritis, hypothyroidism and previous history of smoking presents to ER with complaints of chest pain below the left breast. Patient states that she has been having problems with passing gas and indigestion. Patient was advised to take MiraLAX. Does have cramping-like pain in the abdomen and few episodes of last night patient had left-sided chest pain sharp pain with radiation to the left arm as well as to the back. Patient could not sleep due to on and off pain and soreness. associate with mild shortness of breath. No nausea or vomiting or abdominal pain. No dizziness or lightheadedness. Denies any cough or sputum production. No recent illnesses. No fever no chills. Denies any worsening leg swelling. Chest x-ray showed small posterior pleural effusion likely on the left. Mild cardiomegaly. CT of the abdomen pelvis showed there is a left-sided spigelian hernia noted with hernia sac measuring 11.3 x 5 cm and contains a segment of sigmoid colon as well as small bowel. No evidence for strangulation at this time. EKG showed atrial fibrillation with ventricular rate greater than 100 Laboratory data showed INR 1.4, WBC 9.2, hemoglobin 14.9 and lymphocytes 0.3 proBNP 2290, BUN 18 and creatinine 0.67 COVID-19 PCR not detected Lipase level is 23 Troponin x3 - liver enzymes are within normal limits. Review of Systems Constitutional: Patient denies any fever or chills . No generalized weakness or weight loss. Abdomen: Patient denied nausea vomiting and diarrhea . left sided abdominal pain. Cardiovascular: Patient does have chest pain and mild short of breath. no p alpitations. Respiratory: patient denied any cough or sputum production. No shortness of breath Neurologic: Patient denied any numbness or tingling headache. Musculoskeletal: Patient denies any complaints of joint swelling or deformity. Skin: Negative Psychiatric: Negative Endocrine: No heat or cold intolerance. No recent weight gain. Genitourinary: No dysuria or hematuria. 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 Smoking Status: Former smoker Past Alcohol Use History: None Reported Additional Past Alcohol Use History / Comment(s): Pt started smoking in 1961 and quit about 1996. LESS THAN 1PPD Past Drug Use History: None Reported - Past Family History Mother History Unknown: Yes Additional Family Medical History / Comment(s): Mother when pt was born. Father Family Medical History: Coronary Artery Disease (CAD) Additional Family Medical History / Comment(s): Father at the age of 83yrs from heart disease. Medications and Allergies Home Medications Medication Instructions Recorded Confirmed Type Calcium Carbonate [Calcium] 600 mg PO AC-LUNCH 04/26/16 04/17/20 History Ipratropium [place] 0.06%Nasal 1 spray EA NOSTRIL DAILY 04/26/16 04/17/20 History [Atrovent Nasal 0.06%] Levothyroxine Sodium [Synthroid] 88 mcg PO DAILY 04/26/16 04/17/20 History Multivitamins, Thera [Multivitamin 1 tab PO AC-LUNCH 04/26/16 04/17/20 History (formulary)] metHOTREXate sodium [Methotrexate] 7.5 mg PO GALVAN 04/26/16 04/17/20 History predniSONE 5 mg PO DAILY 04/26/16 04/17/20 History Apixaban [Eliquis] 5 mg PO BID #60 tab 04/29/16 04/17/20 Rx Atorvastatin Calcium [Lipitor] 20 mg PO DAILY 09/04/19 04/17/20 History Cetirizine HCl [Zyrtec] 10 mg PO DAILY 04/17/20 04/17/20 History Cholecalciferol (Vitamin D3) 4,000 unit PO DAILY 04/17/20 04/17/20 History [Vitamin D3 (4,000 Iu)] Famotidine [Pepcid] 20 mg PO DAILY 04/17/20 04/17/20 History Folic Acid 0.8 mg PO DAILY 04/17/20 04/17/20 History L.acidoph,Paracasei, B.lactis 1 cap PO DAILY 04/17/20 04/17/20 History [Probiotic] Metoprolol Tartrate [Lopressor] 50 mg PO BID 04/17/20 04/17/20 History Allergies Allergy/AdvReac Type Severity Reaction Status Date / Time clindamycin Allergy Rash/Hives Verified 04/17/20 11:51 erythromycin base Allergy Rash/Hives Verified 04/17/20 11:51 infliximab [From Remicade] Allergy THROAT Verified 04/17/20 11:51 Swelling Physical Exam Vitals: Vital Signs Temp Pulse Pulse Resp BP BP Pulse Ox 04/17/20 22:56 114/73 04/17/20 21:42 98.1 F 91 16 120/60 94 L 04/17/20 20:12 101 H 18 139/91 97 04/17/20 18:49 98.1 F 78 18 108/71 96 04/17/20 17:29 98.3 F 80 18 144/73 93 L 04/17/20 16:32 98.3 F 99 18 134/78 95 04/17/20 16:02 98.2 F 152 H 16 127/78 95 04/17/20 10:33 98.2 F 102 H 18 137/71 96 Intake and Output 04/17/20 04/17/20 04/18/20 14:59 22:59 06:59 Other: Voiding Method Toilet # Voids 2 Weight 72.575 kg 72.575 kg PHYSICAL EXAMINATION: Patient is lying in the bed comfortably, no acute distress, awake alert and oriented.. HEENT: Normocephalic. Neck is supple. Pupils reactive. Nostrils clear. Oral cavity is moist. Ears reveal no drainage. Neck reveals no JVD, carotid bruits, or thyromegaly. CHEST EXAMINATION: Trachea is central. Symmetrical expansion. Lung amezcua clear to auscultation and percussion. CARDIAC: Normal S1, S2 with no gallops. No murmurs ABDOMEN: Soft. Bowel sounds normal. No organomegaly. No abdominal bruits. Extremities: reveal no edema. No clubbing or cyanosis Neurologically awake, alert, oriented x3 with well-coordinated movements. No focal deficits noted Skin: No rash or skin lesions. Psychiatric: Coperative. Nonsuicidal Musculoskeletal: No joint swelling or deformity. Normal range of motion. Results CBC & Chem 7: 04/17/20 11:34 04/17/20 11:34 Labs: Abnormal Lab Results - Last 24 Hours (Table) 04/17/20 04/17/20 04/17/20 Range/Units 11:34 11:34 11:34 Hct 46.7 H (34.0-46.0) % Neutrophils # 8.2 H (1.3-7.7) k/uL Lymphocytes # 0.3 L (1.0-4.8) k/uL PT 14.2 H (9.0-12.0) sec INR 1.4 H (<1.2) BUN 18 H (7-17) mg/dL Glucose 129 H (74-99) mg/dL Total Protein 6.0 L (6.3-8.2) g/dL Albumin 3.3 L (3.5-5.0) g/dL Thrombosis Risk Factor Assmnt - DVT/VTE Prophylaxis DVT/VTE Prophylaxis: Pharmacologic Prophylaxis ordered - Choose All That Apply Any of the Below Risk Factors Present?: Yes Each Factor Represents 1 point: Obesity (BMI >25) Other Risk Factors: No Thrombosis Risk Factor Assessment Total Risk Factor Score: 1 Thrombosis Risk Factor Assessment Level: Low Risk Assessment and Plan Assessment: Atrial fibrillation with rapid ventricle rate Chest pain. . Ruled out ACS. Possibly due to left-sided hernia sac. 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 No evidence of strangulation noted. Hypothyroidism Paroxysmal atrial fibrillation on anticoagulation with Eliquis History of lower lip cancer with removal Rheumatoid arthritis on methotrexate and prednisone at home Hyperlipidemia Previous history of smoking DVT prophylaxis patient is already on full anticoagulation Plan: Patient will be continued on telemetry monitoring. Started on Cardizem drip for rate control. Continue with metoprolol and Eliquis. Serial troponin x3 -. Cardiology was consulted. Will consult general surgery due to hernia sac and symptoms of abdominal pain and bloating sensation. Continue with home medications and further recommendations based on the clinical course. Time with Patient: Greater than 30
[2020-04-18] MEDS: LEVOTHYROXINE 88 MCG TAB PO SCH (06:06)
[2020-04-18] MEDS ORDERED: ASPIRIN 325 MG TAB PO SCH (09:00)
[2020-04-18] MEDS ORDERED: NON FORMULARY DRUG (Folic Acid [Folic Acid] 0.8 MG Capsule) PO SCH (09:00)
[2020-04-18] MEDS: ATORVASTATIN 20 MG TAB PO SCH (09:14)
[2020-04-18] MEDS: METOPROLOL TARTRATE 50 MG TAB PO SCH ×2 (09:14→20:33)
[2020-04-18] MEDS: FAMOTIDINE 20 MG TAB PO SCH (09:14)
[2020-04-18] MEDS: CHOLECALCIFEROL 25 MCG (1000 IU) TABLET PO SCH (09:14)
[2020-04-18] MEDS: predniSONE 5 MG TAB PO SCH (09:15)
[2020-04-18 09:58] LABS: Chol/HDL Ratio 2.51; LDL Cholesterol,Calculated 47.4 mg/dL (0.0-131.0); VLDL Calculation 17.6 mg/dL (5.00-40.00)
--- NOTE | 2020-04-18 10:05 | P.CRDCN ---
History of Present Illness History of present illness: HISTORY OF PRESENTING ILLNESS This is a pleasant 80-year-old female past medical history significant for chronic persistent atrial fibrillation maintained on long-term anticoagulat ion, dyslipidemia and hypertension. She follows in the office with Dr. Reynolds. We have been asked to see in consultation for chest pain. She presented to the hospital with symptoms of discomfort under the left breast that started last evening. She states for the previous 2 weeks she has been following with her primary care physician regarding increased abdominal bloating, frequent episodes of gas with diarrhea and abdominal pain. She has been started on MiraLAX. She states she has yet to have a consistent normal bowel movement however she has only been on MiraLAX for the past few days. Her gas has improved but she is still having some mild diarrhea. The pain she felt under her left breast is described as an achy sensation. It started while she was laying in bed trying to sleep and did improve by the morning. She denies radiation through to the back, down the arm, into the neck or the jaw. She denies any associated shortness of breath, dizziness, palpitations or diaphoresis. She describes having some vague nausea over the previous 2 weeks but no vomiting. No change in her oral intake. EKG on arrival revealed atrial fibrillation heart rate of 100. While in the emergency department her heart rate was fluctuating up to 150 bpm at times and IV Cardizem was initiated. This was discontinued last evening around 2330 due to bradycardia. She continues this morning to be persistent atrial fibrillation with mostly controlled rates. Chest x-ray reveals a small posterior pleural effusion on the left and mild cardiomegaly. CT of the abdomen and pelvis reveals a left sided hernia containing a segment of the sigmoid colon as well as a small bowel with no evidence of strangulation. Laboratory data reviewed, WBC 9.2, hemoglobin 14.9, platelets 235, INR 1.4, sodium 138, potassium 4.3, creatinine 0.67, magnesium 1.7, cardiac enzymes negative 3, proBNP 2290. Current daily cardiac medications include Lopressor 50 mg twice a day, Eliquis 5 mg twice a day and atorvastatin 20 mg daily. She underwent cardiac catheterization in 2016 revealing minimal nonobstructive coronary artery disease. Most recent echocardiogram obtained in the office August 2019 revealed preserved LV systolic function with ejection fraction 55%, moderately dilated left atrium, mildly dilated right atrium, moderate mitral regurgitation, mild tricuspid regurgitation and normal PA pressures. REVIEW OF SYSTEMS At the time of my exam: CONSTITUTIONAL: Denies fever or chills. CARDIOVASCULAR: Denies chest pain, shortness of breath, orthopnea, PND or palpitations. RESPIRATORY: Denies cough. GASTROINTESTINAL: Denies abdominal pain, diarrhea, constipation, nausea or vomiting. MUSCULOSKELETAL: Denies myalgias. NEUROLOGIC: Denies numbness, tingling, headacbe or weakness. ENDOCRINE: Denies fatigue, weight change, polydipsia or polyurina. GENITOURINARY: Denies burning, hematuria or urgency with micturation. HEMATOLOGIC: Denies history of anemia or bleeding. PHYSICAL EXAMINATION Blood pressure 109/65 heart rate 86 afebrile and maintaining oxygen saturation on room air. CONSTITUTIONAL: No apparent distress. HEENT: Head is normocephalic. Pupils are equal, round. Sclerae anicteric. Mucous membranes of the mouth are moist. No JVD. No carotid bruit. CHEST EXAMINATION: Lungs are clear to auscultation. No chest wall tenderness is noted on palpation or with deep breathing. HEART EXAMINATION: Irregular rate and rhythm. S1, S2 heard. Systolic ejection murmur at the apex, no gallops or rub. ABDOMEN: Soft, nontender. Positive bowel sounds. EXTREMITIES: 2+ peripheral pulses, no lower extremity edema and no calf tenderness. NEUROLOGIC EXAMINATION: Patient is awake, alert and oriented x3. ASSESSMENT Chest pain, atypical. Abdominal pain Chronic persistent atrial fibrillation with rapid ventricular rate, improved Hypertension Dyslipidemia PLAN An acute coronary event has been ruled out. Continue beta pa for rate control and Eliquis for thromboembolic protection. Ongoing medical management of abdominal pain and hernia. If surgery is indicated, eliquis should be held for 48 hours prior to surgery. Clinically she is euvolemic with no evidence to suggest fluid overload or heart failure. No further cardiac workup required at this time. Thank you kindly for this consultation. Nurse Practitioner note has been reviewed, I agree with a documented findings and plan of care. Patient was seen and examined. 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 Smoking Status: Former smoker Past Alcohol Use History: None Reported Additional Past Alcohol Use History / Comment(s): Pt started smoking in 1961 and quit about 1996. LESS THAN 1PPD Past Drug Use History: None Reported - Past Family History Mother History Unknown: Yes Additional Family Medical History / Comment(s): Mother when pt was born. Father Family Medical History: Coronary Artery Disease (CAD) Additional Family Medical History / Comment(s): Father at the age of 83yrs from heart disease. Medications and Allergies Home Medications Medication Instructions Recorded Confirmed Type Calcium Carbonate [Calcium] 600 mg PO AC-LUNCH 04/26/16 04/17/20 History Ipratropium [place] 0.06%Nasal 1 spray EA NOSTRIL DAILY 04/26/16 04/17/20 History [Atrovent Nasal 0.06%] Levothyroxine Sodium [Synthroid] 88 mcg PO DAILY 04/26/16 04/17/20 History Multivitamins, Thera [Multivitamin 1 tab PO AC-LUNCH 04/26/16 04/17/20 History (formulary)] metHOTREXate sodium [Methotrexate] 7.5 mg PO UMANZOR 04/26/16 04/17/20 History predniSONE 5 mg PO DAILY 04/26/16 04/17/20 History Apixaban [Eliquis] 5 mg PO BID #60 tab 04/29/16 04/17/20 Rx Atorvastatin Calcium [Lipitor] 20 mg PO DAILY 09/04/19 04/17/20 History Cetirizine HCl [Zyrtec] 10 mg PO DAILY 04/17/20 04/17/20 History Cholecalciferol (Vitamin D3) 4,000 unit PO DAILY 04/17/20 04/17/20 History [Vitamin D3 (4,000 Iu)] Famotidine [Pepcid] 20 mg PO DAILY 04/17/20 04/17/20 History Folic Acid 0.8 mg PO DAILY 04/17/20 04/17/20 History L.acidoph,Paracasei, B.lactis 1 cap PO DAILY 04/17/20 04/17/20 History [Probiotic] Metoprolol Tartrate [Lopressor] 50 mg PO BID 04/17/20 04/17/20 History Allergies Allergy/AdvReac Type Severity Reaction Status Date / Time clindamycin Allergy Rash/Hives Verified 04/17/20 11:51 erythromycin base Allergy Rash/Hives Verified 04/17/20 11:51 infliximab [From Remicade] Allergy THROAT Verified 04/17/20 11:51 Swelling Physical Exam Vitals: Vital Signs Temp Pulse Pulse Resp BP BP Pulse Ox 04/18/20 05:12 109/65 04/18/20 01:20 97.5 F L 86 15 95/61 93 L 04/17/20 23:46 65 117/73 04/17/20 22:56 114/73 04/17/20 21:42 98.1 F 91 16 120/60 94 L 04/17/20 20:12 101 H 18 139/91 97 04/17/20 18:49 98.1 F 78 18 108/71 96 04/17/20 17:29 98.3 F 80 18 144/73 93 L 04/17/20 16:32 98.3 F 99 18 134/78 95 04/17/20 16:02 98.2 F 152 H 16 127/78 95 04/17/20 10:33 98.2 F 102 H 18 137/71 96 Intake and Output 04/17/20 04/18/20 04/18/20 22:59 06:59 14:59 Other: Voiding Method Toilet # Voids 2 1 Weight 72.575 kg Results 04/17/20 11:34 04/17/20 11:34 Cardiac Enzymes 04/17/20 04/17/20 04/17/20 Range/Units 11:34 11:34 17:40 AST 23 (14-36) U/L Troponin I <0.012 <0.012 (0.000-0.034) ng/mL 04/17/20 Range/Units 21:02 AST (14-36) U/L Troponin I <0.012 (0.000-0.034) ng/mL Coagulation 04/17/20 Range/Units 11:34 PT 14.2 H (9.0-12.0) sec APTT 23.4 (22.0-30.0) sec CBC 04/17/20 Range/Units 11:34 WBC 9.2 (3.8-10.6) k/uL RBC 4.84 (3.80-5.40) m/uL Hgb 14.9 (11.4-16.0) gm/dL Hct 46.7 H (34.0-46.0) % Plt Count 235 (150-450) k/uL Comprehensive Metabolic Panel 04/17/20 Range/Units 11:34 Sodium 138 (137-145) mmol/L Potassium 4.3 (3.5-5.1) mmol/L Chloride 103 (98-107) mmol/L Carbon Dioxide 27 (22-30) mmol/L BUN 18 H (7-17) mg/dL Creatinine 0.67 (0.52-1.04) mg/dL Glucose 129 H (74-99) mg/dL Calcium 9.7 (8.4-10.2) mg/dL AST 23 (14-36) U/L ALT 21 (4-34) U/L Alkaline Phosphatase 59 (38-126) U/L Total Protein 6.0 L (6.3-8.2) g/dL Albumin 3.3 L (3.5-5.0) g/dL Current Medications Generic Name Dose Route Start Last Admin Trade Name Freq PRN Reason Stop Dose Admin Apixaban 5 mg 04/17/20 22:15 04/17/20 22:54 Apixaban 5 Mg Tab PO 5 mg BID NEGRO Administration Atorvastatin Calcium 20 mg 04/18/20 09:00 Atorvastatin 20 Mg Tab PO DAILY [facility] Calcium Carbonate/Glycine 500 mg 04/18/20 12:30 Calcium Carbonate 500 Mg Chewable PO AC-LUNCH [facility] Cholecalciferol 100 mcg 04/18/20 09:00 Cholecalciferol 25 Mcg (1000 Iu) Tablet PO DAILY [facility] Famotidine 20 mg 04/18/20 09:00 Famotidine 20 Mg Tab PO DAILY [facility] Levothyroxine Sodium 88 mcg 04/18/20 06:30 04/18/20 06:06 Levothyroxine 88 Mcg Tab PO 88 mcg DAILY@0630 [facility] Administration Methotrexate 7.5 mg 04/20/20 09:00 Methotrexate Sodium 2.5 Mg Tab PO Umanzor@0900 [facility] Metoprolol Tartrate 50 mg 04/17/20 22:15 04/17/20 22:54 Metoprolol Tartrate 50 Mg Tab PO 50 mg BID NEGRO Administration Multivitamins 1 each 04/18/20 12:30 Multivitamins, Thera 1 Each Tab PO AC-LUNCH NEGRO Nitroglycerin 0.4 mg 04/17/20 15:26 Nitroglycerin Sl Tabs 0.4 Mg Tab SUBLINGUAL Q5M PRN Chest Pain Prednisone 5 mg 04/18/20 09:00 Prednisone 5 Mg Tab PO DAILY NEGRO Intake and Output 04/17/20 04/18/20 04/18/20 22:59 06:59 14:59 Other: Voiding Method Toilet # Voids 2 1 Weight 72.575 kg 04/17/20 11:34 04/17/20 11:34
--- NOTE | 2020-04-18 10:42 | P.GSCN ---
History of Present Illness Consult date: 04/18/20 History of present illness: CHIEF COMPLAINT: Abdominal pain HISTORY OF PRESENT ILLNESS: This is an 80-year-old female with a known past medical history of chronic persistent atrial fibrillation anticoagulated on Eliquis, rheumatoid arthritis, abdominal hernia with hernia repair surgery in 2008 with mesh placement by Dr. Guaman. Patient reports that she had complicat ions and did not heal well from that surgery. She had developed an infection at the incision site and required incision and drainage. She also had wound VAC and antibiotics. She reports having to go to the wound care center. It took about 3 years for her to heal. She also has a surgical history of hysterectomy, cholecystectomy and inguinal hernia repair. Patient reports that she's been having abdominal cramping and gas pains for about 3 weeks. She's been having issues with constipation. Her primary care physician started her on MiraLAX. She also reports having a few episodes of diarrhea. Today she was able to have 2 small formed bowel movements. She presented to the ER due to discomfort under the left breast that started yesterday evening. This pain has now resolved. She denies any actual chest pain or shortness of breath. She was seen by cardiology due to atrial fibrillation with rapid ventricular response. The Cardizem drip was discontinued. And she's been restarted on her beta blockers. Cardiology has ruled out acute coronary event. Patient did have a computed to mography scan of the abdomen and pelvis that showed a left-sided spigelian hernia noted with hernia sac measuring 11.3 x 5 cm and contains a segment of sigmoid colon as well as small bowel. No evidence for strangulation at this point. Surgical consult was placed regarding the left-sided spigelian hernia. Patient denies any nausea or vomiting. Denies any fever chills or sweats. Patient did report having discomfort while urinating. PAST MEDICAL HISTORY: See list. PAST SURGICAL HISTORY: See list. MEDICATIONS: See list. ALLERGIES: See list. SOCIAL HISTORY: No illicit drug use. REVIEW OF SYSTEMS: CONSTITUTIONAL: Denies fever or chills. HEENT: Denies blurred vision, vision changes, or eye pain. Denies hemoptysis CARDIOVASCULAR: Denies chest pain or pressure. RESPIRATORY: No shortness of breath. GASTROINTESTINAL: See HPI for pertinent findings HEMATOLOGIC: Denies bleeding disorders. GENITOURINARY: Denies any blood in urine or increased urinary frequency. SKIN: Denies pruitis. Denies rash. PHYSICAL EXAM: VITAL SIGNS: Reviewed GENERAL: Well-developed in no acute distress. HEENT: No sclera icterus. Extraocular movements grossly intact. Moist buccal mucosa. Head is atraumatic, normocephalic. No nasal drainage. ABDOMEN: Soft. Nondistended. Palpable hernia along mid abdominal incision. Mildly tender. No evidence of any erythema along the incision sites. NEUROLOGIC: Alert and oriented. Cranial nerves II through XII grossly intact. LABORATORY DATA: WBC 9.2 Hgb 14.9 platelets 235 INR 1.4 d-dimer 0.58 creatinine 0.67 magnesium 1.7 LFTs normal Troponins negative 3 TSH 0.730 Covid not detected IMAGING: computed tomography scan of the abdomen and pelvis that showed a left-sided spigelian hernia noted with hernia sac measuring 11.3 x 5 cm and contains a segment of sigmoid colon as well as small bowel. No evidence for strangulation at this point. ASSESSMENT: 1. Abdominal pain 2. Left sided spigelian hernia that contains a segment of sigmoid colon as well as small bowel 3. Prior history of abdominal hernia with surgical repair in 2008 with incisional infection requiring further surgery and wound VAC and antibiotics 4. History of chronic persistent atrial fibrillation anticoagulated with Eliquis 5. History of rheumatoid arthritis PLAN: -Patient is scheduled for repair of left spiglian hernia with Dr. Donohue on 04/21/2020 -Continue to hold Eliquis -Okay for full liquid diet Thank you for this consultation Physician Steel Burner note has been reviewed by physician. Signing provider agrees with the documented findings, assessment, and plan of care. 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 Smoking Status: Former smoker Past Alcohol Use History: None Reported Additional Past Alcohol Use History / Comment(s): Pt started smoking in 2 and quit about 1996. LESS THAN 1PPD Past Drug Use History: None Reported - Past Family History Mother History Unknown: Yes Additional Family Medical History / Comment(s): Mother when pt was born. Father Family Medical History: Coronary Artery Disease (CAD) Additional Family Medical History / Comment(s): Father at the age of 83yrs from heart disease. Medications and Allergies Home Medications Medication Instructions Recorded Confirmed Type Calcium Carbonate [Calcium] 600 mg PO AC-LUNCH 04/26/16 04/17/20 History Ipratropium [place] 0.06%Nasal 1 spray EA NOSTRIL DAILY 04/26/16 04/17/20 History [Atrovent Nasal 0.06%] Levothyroxine Sodium [Synthroid] 88 mcg PO DAILY 04/26/16 04/17/20 History Multivitamins, Thera [Multivitamin 1 tab PO AC-LUNCH 04/26/16 04/17/20 History (formulary)] metHOTREXate sodium [Methotrexate] 7.5 mg PO GALVAN 04/26/16 04/17/20 History predniSONE 5 mg PO DAILY 04/26/16 04/17/20 History Apixaban [Eliquis] 5 mg PO BID #60 tab 04/29/16 04/17/20 Rx Atorvastatin Calcium [Lipitor] 20 mg PO DAILY 09/04/19 04/17/20 History Cetirizine HCl [Zyrtec] 10 mg PO DAILY 04/17/20 04/17/20 History Cholecalciferol (Vitamin D3) 4,000 unit PO DAILY 04/17/20 04/17/20 History [Vitamin D3 (4,000 Iu)] Famotidine [Pepcid] 20 mg PO DAILY 04/17/20 04/17/20 History Folic Acid 0.8 mg PO DAILY 04/17/20 04/17/20 History L.acidoph,Paracasei, B.lactis 1 cap PO DAILY 04/17/20 04/17/20 History [Probiotic] Metoprolol Tartrate [Lopressor] 50 mg PO BID 04/17/20 04/17/20 History Allergies Allergy/AdvReac Type Severity Reaction Status Date / Time clindamycin Allergy Rash/Hives Verified 04/17/20 11:51 erythromycin base Allergy Rash/Hives Verified 04/17/20 11:51 infliximab [From Remicade] Allergy THROAT Verified 04/17/20 11:51 Swelling Surgical - Exam Vital Signs Temp Pulse Resp BP Pulse Ox 98.2 F 102 H 18 137/71 96 04/17/20 10:33 04/17/20 10:33 04/17/20 10:33 04/17/20 10:33 04/17/20 10:33 Results - Labs 04/17/20 11:34 04/17/20 11:34 Abnormal Lab Results - Last 24 Hours (Table) 04/17/20 04/17/20 04/17/20 Range/Units 11:34 11:34 11:34 Hct 46.7 H (34.0-46.0) % Neutrophils # 8.2 H (1.3-7.7) k/uL Lymphocytes # 0.3 L (1.0-4.8) k/uL PT 14.2 H (9.0-12.0) sec INR 1.4 H (<1.2) BUN 18 H (7-17) mg/dL Glucose 129 H (74-99) mg/dL Total Protein 6.0 L (6.3-8.2) g/dL Albumin 3.3 L (3.5-5.0) g/dL Diabetes panel 04/17/20 04/17/20 Range/Units 11:34 11:34 Sodium 138 (137-145) mmol/L Potassium 4.3 (3.5-5.1) mmol/L Chloride 103 (98-107) mmol/L Carbon Dioxide 27 (22-30) mmol/L BUN 18 H (7-17) mg/dL Creatinine 0.67 (0.52-1.04) mg/dL Glucose 129 H (74-99) mg/dL Calcium 9.7 (8.4-10.2) mg/dL AST 23 (14-36) U/L ALT 21 (4-34) U/L Alkaline Phosphatase 59 (38-126) U/L Total Protein 6.0 L (6.3-8.2) g/dL Albumin 3.3 L (3.5-5.0) g/dL Triglycerides 88.0 (0.0-149.0) mg/dL HDL Cholesterol 43.0 (40.0-60.0) mg/dL Thyroid panel 04/17/20 Range/Units 11:34 TSH 0.730 (0.350-5.500) uIU/mL Calcium panel 04/17/20 Range/Units 11:34 Calcium 9.7 (8.4-10.2) mg/dL Albumin 3.3 L (3.5-5.0) g/dL Pituitary panel 04/17/20 04/17/20 Range/Units 11:34 11:34 Sodium 138 (137-145) mmol/L Potassium 4.3 (3.5-5.1) mmol/L Chloride 103 (98-107) mmol/L Carbon Dioxide 27 (22-30) mmol/L BUN 18 H (7-17) mg/dL Creatinine 0.67 (0.52-1.04) mg/dL Glucose 129 H (74-99) mg/dL Calcium 9.7 (8.4-10.2) mg/dL TSH 0.730 (0.350-5.500) uIU/mL Adrenal panel 04/17/20 Range/Units 11:34 Sodium 138 (137-145) mmol/L Potassium 4.3 (3.5-5.1) mmol/L Chloride 103 (98-107) mmol/L Carbon Dioxide 27 (22-30) mmol/L BUN 18 H (7-17) mg/dL Creatinine 0.67 (0.52-1.04) mg/dL Glucose 129 H (74-99) mg/dL Calcium 9.7 (8.4-10.2) mg/dL Total Bilirubin 0.7 (0.2-1.3) mg/dL AST 23 (14-36) U/L ALT 21 (4-34) U/L Alkaline Phosphatase 59 (38-126) U/L Total Protein 6.0 L (6.3-8.2) g/dL Albumin 3.3 L (3.5-5.0) g/dL
[2020-04-18] MEDS: APIXABAN 5 MG TAB PO SCH ×3 (12:55→20:33)
[2020-04-18] MEDS: MULTIVITAMINS, THERA 1 EACH TAB PO SCH (13:01)
[2020-04-18] MEDS: CALCIUM CARBONATE 500 MG CHEWABLE PO SCH (13:01)
[2020-04-18] MEDS: METOPROLOL TARTRATE 25 MG TAB PO SCH (14:15)
[2020-04-18 18:27] LABS: Appearance,Urine Cloudy (Clear); Bacteria,Urine Few /hpf; Bilirubin,Urine Negative (Negative); Blood,Urine Moderate (Negative); Color,Urine Yellow; Glucose,Urine (UA) Negative (Negative); Ketones,Urine Negative (Negative); Leukocyte Esterase,Urine Large (Negative); Mucus,Urine Few /hpf; Nitrite,Urine Negative (Negative); PH, Urine 5.5 (5.0-8.0); Protein,Urine Trace (Negative); RBC,Urine 6 /hpf (0-5); Specific Gravity,Urine 1.029 (1.001-1.035); Squamous Epithelial Cell,Urine 4 /hpf (0-4); Urobilinogen,Urine <2.0 mg/dL (<2.0); WBC,Urine >182 /hpf (0-5)
[2020-04-19] MEDS: LEVOTHYROXINE 88 MCG TAB PO SCH (05:43)
[2020-04-19] MEDS: LORATADINE 10 MG TAB PO SCH (08:47)
[2020-04-19] MEDS: CHOLECALCIFEROL 25 MCG (1000 IU) TABLET PO SCH (08:47)
[2020-04-19] MEDS: FAMOTIDINE 20 MG TAB PO SCH (08:47)
[2020-04-19] MEDS: METOPROLOL TARTRATE 50 MG TAB PO SCH ×2 (08:48→20:54)
[2020-04-19] MEDS: predniSONE 5 MG TAB PO SCH (08:48)
[2020-04-19] MEDS: ATORVASTATIN 20 MG TAB PO SCH (08:48)
[2020-04-19] MEDS: IPRATROPIUM BROMIDE 0.06% NASAL SPRAY (15 ML) EA NOSTRIL SCH (08:49)
[2020-04-19] MEDS ORDERED: METOPROLOL TARTRATE 25 MG TAB PO STA (10:45)
--- NOTE | 2020-04-19 10:46 | P.PN ---
Subjective Progress Note Date: 04/19/20 HISTORY OF PRESENTING ILLNESS This is a pleasant 80-year-old female past medical history significant for chronic persistent atrial fibrillation maintained on long-term anticoagulation, dyslipidemia and hypertension. She follows in the office with Dr. Reynolds. We have been asked to see in consultation for chest pain. She presented to the hospital with symptoms of discomfort under the left breast that started last evening. She states for the previous 2 weeks she has been following with her primary care physician regarding increased abdominal bloating, frequent episodes of gas with diarrhea and abdominal pain. She has been started on MiraLAX. She states she has yet to have a consistent normal bowel movement however she has only been on MiraLAX for the past few days. Her gas has improved but she is still having some mild diarrhea. The pain she felt under her left breast is described as an achy sensation. It started while she was laying in bed trying to sleep and did improve by the morning. She denies radiation through to the back, down the arm, into the neck or the jaw. She mariaa es any associated shortness of breath, dizziness, palpitations or diaphoresis. She describes having some vague nausea over the previous 2 weeks but no vomiting. No change in her oral intake. EKG on arrival revealed atrial fibrillation heart rate of 100. While in the emergency department her heart rate was fluctuating up to 150 bpm at times and IV Cardizem was initiated. This was discontinued last evening around 2330 due to bradycardia. She continues this morning to be persistent atrial fibrillation with mostly controlled rates. Chest x-ray reveals a small posterior pleural effusion on the left and mild cardiomegaly. CT of the abdomen and pelvis reveals a left sided hernia containing a segment of the sigmoid colon as well as a small bowel with no evidence of strangulation. Laboratory data reviewed, WBC 9.2, hemoglobin 14.9, platelets 235, INR 1.4, sodium 138, potassium 4.3, creatinine 0.67, magnesium 1.7, cardiac enzymes negative 3, proBNP 2290. Current daily cardiac medicati ons include Lopressor 50 mg twice a day, Eliquis 5 mg twice a day and atorvastatin 20 mg daily. She underwent cardiac catheterization in 2016 revealing minimal nonobstructive coronary artery disease. Most recent echocardiogram obtained in the office August 2019 revealed preserved LV systolic function with ejection fraction 55%, moderately dilated left atrium, mildly dilated right atrium, moderate mitral regurgitation, mild tricuspid regurgitation and normal PA pressures. 04/19: Patient is scheduled for hernia repair with Dr. Donohue on Tuesday and eliquis is on hold. Patient's heart rate have been labile running between 80 and jumping up to 130s with activity. She is currently on Lopressor 50 mg twice daily and a 25 mg at 2 PM was added yesterday. PHYSICAL EXAMINATION Afebrile, blood pressure 127/64, heart rate 80s to 130s, pulse ox 95% on room air CONSTITUTIONAL: No apparent distress. HEENT: Head is normocephalic. Pupils are equal, round. Sclerae anicteric. Mucous membranes of the mouth are moist. No JVD. No carotid bruit. CHEST EXAMINATION: Lungs are clear to auscultation. No chest wall tenderness is noted on palpation or with deep breathing. HEART EXAMINATION: Irregular rate and rhythm. S1, S2 heard. Systolic ejection murmur at the apex, no gallops or rub. ABDOMEN: Soft, nontender. Positive bowel sounds. EXTREMITIES: 2+ peripheral pulses, no lower extremity edema and no calf tenderness. NEUROLOGIC EXAMINATION: Patient is awake, alert and oriented x3. ASSESSMENT Chest pain, atypical. Abdominal pain Chronic persistent atrial fibrillation with rapid ventricular rate, improved Hypertension Dyslipidemia PLAN An acute coronary event has been ruled out. Increase Lopressor to 75 mg twice daily, continue 25 mg at 2 PM and we'll reevaluate tomorrow, most likely change to 75 mg twice daily Eliquis on hold for surgical intervention scheduled for Tuesday. Please resume as soon as possible after procedure as cleared by general surgery. Patient is scheduled for hernia repair on Tuesday. Clinically she is euvolemic with no evidence to suggest fluid overload or heart failure. No further cardiac workup required at this time. Thank you kindly for this consultation. Nurse Practitioner note has been reviewed, I agree with a documented findings and plan of care. Patient was seen and examined. Objective - Vital Signs Vital signs: Vital Signs Temp 98.2 F 04/19/20 07:51 Pulse 65 04/19/20 07:51 Resp 18 04/19/20 07:51 BP 127/64 04/19/20 07:51 Pulse Ox 95 04/19/20 07:51 Intake & Output 04/18/20 04/19/20 04/19/20 18:59 06:59 18:59 Other: Voiding Method Toilet Toilet # Voids 2 1 - Labs CBC & Chem 7: 04/17/20 11:34 04/17/20 11:34 Labs: Abnormal Lab Results - Last 24 Hours (Table) 04/18/20 Range/Units 12:15 Urine Appearance Cloudy H (Clear) Urine Protein Trace H (Negative) Urine Blood Moderate H (Negative) Ur Leukocyte Esterase Large H (Negative) Urine RBC 6 H (0-5) /hpf Urine WBC >182 H (0-5) /hpf Urine WBC Clumps Few H (None) /hpf Urine Bacteria Few H (None) /hpf Urine Mucus Few H (None) /hpf
--- NOTE | 2020-04-19 11:42 | P.PN ---
Progress Note - Text Progress Note Date: 04/19/20 Patient is doing well. On exam her vital signs are stable. Abdomen soft. Patient has a left spigelian hernia. The hernias small bowel within it. The hernia is incarcerated. Patient remained stable. She'll undergo repair of her hernia on Tuesday.
[2020-04-19] MEDS: MULTIVITAMINS, THERA 1 EACH TAB PO SCH (13:01)
[2020-04-19] MEDS: CALCIUM CARBONATE 500 MG CHEWABLE PO SCH (13:01)
[2020-04-19] MEDS: METOPROLOL TARTRATE 25 MG TAB PO SCH (15:59)
[2020-04-20] MEDS: LEVOTHYROXINE 88 MCG TAB PO SCH (05:56)
[2020-04-20] MEDS: LORATADINE 10 MG TAB PO SCH (08:10)
[2020-04-20] MEDS: ATORVASTATIN 20 MG TAB PO SCH ×2 (08:10→08:21)
[2020-04-20] MEDS: FAMOTIDINE 20 MG TAB PO SCH (08:10)
[2020-04-20] MEDS: CHOLECALCIFEROL 25 MCG (1000 IU) TABLET PO SCH (08:10)
[2020-04-20] MEDS: predniSONE 5 MG TAB PO SCH (08:10)
[2020-04-20] MEDS: METOPROLOL TARTRATE 50 MG TAB PO SCH ×2 (08:10→22:53)
[2020-04-20] MEDS: IPRATROPIUM BROMIDE 0.06% NASAL SPRAY (15 ML) EA NOSTRIL SCH (08:11)
--- NOTE | 2020-04-20 08:18 | P.PN ---
Subjective Progress Note Date: 04/20/20 HISTORY OF PRESENTING ILLNESS This is a pleasant 80-year-old female past medical history significant for chronic persistent atrial fibrillation maintained on long-term anticoagulation, dyslipidemia and hypertension. She follows in the office with Dr. Reynolds. We have been asked to see in consultation for chest pain. She presented to the hospital with symptoms of discomfort under the left breast that started last evening. She states for the previous 2 weeks she has been following with her primary care physician regarding increased abdominal bloating, frequent episodes of gas with diarrhea and abdominal pain. She has been started on MiraLAX. She states she has yet to have a consistent normal bowel movement however she has only been on MiraLAX for the past few days. Her gas has improved but she is still having some mild diarrhea. The pain she felt under her left breast is described as an achy sensation. It started while she was laying in bed trying to sleep and did improve by the morning. She denies radiation through to the back, down the arm, into the neck or the jaw. She mariaa es any associated shortness of breath, dizziness, palpitations or diaphoresis. She describes having some vague nausea over the previous 2 weeks but no vomiting. No change in her oral intake. EKG on arrival revealed atrial fibrillation heart rate of 100. While in the emergency department her heart rate was fluctuating up to 150 bpm at times and IV Cardizem was initiated. This was discontinued last evening around 2330 due to bradycardia. She continues this morning to be persistent atrial fibrillation with mostly controlled rates. Chest x-ray reveals a small posterior pleural effusion on the left and mild cardiomegaly. CT of the abdomen and pelvis reveals a left sided hernia containing a segment of the sigmoid colon as well as a small bowel with no evidence of strangulation. Laboratory data reviewed, WBC 9.2, hemoglobin 14.9, platelets 235, INR 1.4, sodium 138, potassium 4.3, creatinine 0.67, magnesium 1.7, cardiac enzymes negative 3, proBNP 2290. Current daily cardiac medicati ons include Lopressor 50 mg twice a day, Eliquis 5 mg twice a day and atorvastatin 20 mg daily. She underwent cardiac catheterization in 2016 revealing minimal nonobstructive coronary artery disease. Most recent echocardiogram obtained in the office August 2019 revealed preserved LV systolic function with ejection fraction 55%, moderately dilated left atrium, mildly dilated right atrium, moderate mitral regurgitation, mild tricuspid regurgitation and normal PA pressures. 04/19: Patient is scheduled for hernia repair with Dr. Donohue on Tuesday and eliquis is on hold. Patient's heart rate have been labile running between 80 and jumping up to 130s with activity. She is currently on Lopressor 50 mg twice daily and a 25 mg at 2 PM was added yesterday. 04/20: Patient's heart rate is better controlled today and is running between 60 and 80. We will plan to discontinue afternoon dose of Lopressor. Patient denies having any chest pain, shortness of breath, lightheadedness dizziness, palpitations. Patient however is very concerned about taking Lopressor at 75 mg as she had been ordered for this in the past and it was not filled by her pharmacy. Patient advised that an appropriate prescription will be sent to her pharmacy at the time of discharge. PHYSICAL EXAMINATION Afebrile, blood pressure 122/70, heart rate 60s yo 80s, pulse ox 95% on room air CONSTITUTIONAL: No apparent distress. HEENT: Head is normocephalic. Pupils are equal, round. Sclerae anicteric. Mucous membranes of the mouth are moist. No JVD. No carotid bruit. CHEST EXAMINATION: Lungs are clear to auscultation. No chest wall tenderness is noted on palpation or with deep breathing. HEART EXAMINATION: Irregular rate and rhythm. S1, S2 heard. Systolic ejection murmur at the apex, no gallops or rub. ABDOMEN: Soft, nontender. Positive bowel sounds. EXTREMITIES: 2+ peripheral pulses, trace right lower extremity edema, no edema left lower extremity and no calf tenderness. NEUROLOGIC EXAMINATION: Patient is awake, alert and oriented x3. ASSESSMENT Chest pain, atypical. Abdominal pain Chronic persistent atrial fibrillation with rapid ventricular rate, improved Hypertension Dyslipidemia PLAN An acute coronary event has been ruled out. Continue increased dose of Lopressor at 75 mg twice daily, discontinue afternoon dose of 25 mg Eliquis on hold for surgical intervention scheduled for Tuesday. Please resume as soon as possible after procedure as cleared by general surgery. Patient is scheduled for hernia repair on Tuesday. Clinically she is euvolemic with no evidence to suggest fluid overload or heart failure. No further cardiac workup required at this time. Thank you kindly for this consultation. Nurse Practitioner note has been reviewed, I agree with a documented findings and plan of care. Patient was seen and examined. Objective - Vital Signs Vital signs: Vital Signs Temp 97.5 F L 04/20/20 01:46 Pulse 77 04/20/20 01:46 Resp 16 04/20/20 01:46 BP 122/70 04/20/20 01:46 Pulse Ox 95 04/20/20 01:46 Intake & Output 04/19/20 04/20/20 04/20/20 18:59 06:59 18:59 Other: Voiding Method Toilet Toilet Toilet # Voids 1 2 - Labs CBC & Chem 7: 04/17/20 11:34 04/17/20 11:34 Labs: Microbiology - Last 24 Hours (Table) 04/18/20 12:15 Urine Culture - Preliminary Urine,Voided
[2020-04-20] MEDS ORDERED: metHOTREXate sodium 2.5 MG TAB PO SCH (09:00)
[2020-04-20] MEDS: CALCIUM CARBONATE 500 MG CHEWABLE PO SCH (12:32)
[2020-04-20] MEDS: MULTIVITAMINS, THERA 1 EACH TAB PO SCH (12:32)
--- NOTE | 2020-04-20 13:01 | P.PN ---
Progress Note - Text Progress Note Date: 04/20/20 Patient stable. She is scheduled to have her left spigelian hernia fixed tomorrow. On exam vitals are stable. Abdomen soft. Left ventricle spigelian hernia has incarcerated small bowel within it. This is nonreducible
--- NOTE | 2020-04-21 02:45 | P.PN ---
Subjective Progress Note Date: 04/18/20 Principal diagnosis: Atrial fibrillation with rapid ventricle rate. controlled Chest pain. . Ruled out ACS. Possibly due to left-sided hernia sac. 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 No evidence of strangulation noted. Patient is a 80-year-old female with a known history of atrial fibrillation on anticoagulation with Eliquis, rheumatoid arthritis, hypothyroidism and previous history of smoking presents to ER with complaints of chest pain below the left breast. Patient states that she has been having problems with passing gas and indigestion. Patient was advised to take MiraLAX. Does have cramping-like pain in the abdomen and few episodes of last night patient had left-sided chest pain sharp pain with radiation to the left arm as well as to the back. Patient could not sleep due to on and off pain and soreness. associate with mild shortness of breath. No nausea or vomiting or abdominal pain. No dizziness or lightheadedness. Denies any cough or sputum production. No recent illnesses. No fever no chills. Denies any worsening leg swelling. Chest x-ray showed small posterior pleural effusion likely on the left. Mild cardiomegaly. CT of the abdomen pelvis showed there is a left-sided spigelian hernia noted with hernia sac measuring 11.3 x 5 cm and contains a segment of sigmoid colon as well as small bowel. No evidence for strangulation at this time. EKG showed atrial fibrillation with ventricular rate greater than 100 Laboratory data showed INR 1.4, WBC 9.2, hemoglobin 14.9 and lymphocytes 0.3 proBNP 2290, BUN 18 and creatinine 0.67 COVID-19 PCR not detected Lipase level is 23 Troponin x3 - liver enzymes are within normal limits. 04/18/2019 Patient is currently resting in bed. Left-sided abdominal pain is better today. Patient was seen by general surgery and is planning for hernia repair on the left abdominal wall. Otherwise patient's heart rate is elevated and metoprolol dose was increased as per cardiology. Anticoagulation is on hold due to possible surgery on Tuesday. Patient otherwise denied any complaints of chest pain or shortness breath. No nausea vomiting or diarrhea. No headache or dizziness lightheadedness. No other acute overnight issues. Current medications reviewed. Objective - Vital Signs Vital signs: Vital Signs Temp 98.1 F 04/18/20 19:22 Pulse 88 04/18/20 19:22 Resp 17 04/18/20 19:22 BP 101/70 04/18/20 19:22 Pulse Ox 96 04/18/20 19:22 Intake & Output 04/18/20 04/18/20 04/19/20 06:59 18:59 06:59 Weight 72.575 kg Other: Voiding Method Toilet Toilet # Voids 1 2 - Exam PHYSICAL EXAMINATION: Patient is lying in the bed comfortably, no acute distress, awake alert and oriented.. HEENT: Normocephalic. Neck is supple. Pupils reactive. Nostrils clear. Oral cavity is moist. Ears reveal no drainage. Neck reveals no JVD, carotid bruits, or thyromegaly. CHEST EXAMINATION: Trachea is central. Symmetrical expansion. Lung amezcua clear to auscultation and percussion. CARDIAC: Normal S1, S2 with no gallops. No murmurs ABDOMEN: Soft. Bowel sounds normal. No organomegaly. No abdominal bruits. Extremities: reveal no edema. No clubbing or cyanosis Neurologically awake, alert, oriented x3 with well-coordinated movements. No focal deficits noted Skin: No rash or skin lesions. Psychiatric: Coperative. Nonsuicidal Musculoskeletal: No joint swelling or deformity. Normal range of motion. - Labs CBC & Chem 7: 04/17/20 11:34 04/17/20 11:34 Labs: Abnormal Lab Results - Last 24 Hours (Table) 04/18/20 Range/Units 12:15 Urine Appearance Cloudy H (Clear) Urine Protein Trace H (Negative) Urine Blood Moderate H (Negative) Ur Leukocyte Esterase Large H (Negative) Urine RBC 6 H (0-5) /hpf Urine WBC >182 H (0-5) /hpf Urine WBC Clumps Few H (None) /hpf Urine Bacteria Few H (None) /hpf Urine Mucus Few H (None) /hpf Assessment and Plan Assessment: Atrial fibrillation with rapid ventricle rate. controlled Chest pain. . Ruled out ACS. Possibly due to left-sided hernia sac. 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 No evidence of strangulation noted. Hypothyroidism Paroxysmal atrial fibrillation on anticoagulation with Eliquis History of lower lip cancer with removal Rheumatoid arthritis on methotrexate and prednisone at home Hyperlipidemia Previous history of smoking DVT prophylaxis patient is already on full anticoagulation Plan: Patient will be continued on telemetry monitoring. Started on Cardizem drip for rate control. off drip now. Continue with metoprolol and Eliquis on hold. Serial troponin x3 -. Cardiology is on board and general surgery due to hernia sac and symptoms of abdominal pain and bloating sensation. planning for repair on Tuesday . Continue with home medications and further recommendations based on the clinical course. Time with Patient: Greater than 30
--- NOTE | 2020-04-21 02:46 | P.PN ---
Subjective Progress Note Date: 04/19/20 Principal diagnosis: Atrial fibrillation with rapid ventricle rate. controlled Chest pain. . Ruled out ACS. Possibly due to left-sided hernia sac. 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 No evidence of strangulation noted. Patient is a 80-year-old female with a known history of atrial fibrillation on anticoagulation with Eliquis, rheumatoid arthritis, hypothyroidism and previous history of smoking presents to ER with complaints of chest pain below the left breast. Patient states that she has been having problems with passing gas and indigestion. Patient was advised to take MiraLAX. Does have cramping-like pain in the abdomen and few episodes of last night patient had left-sided chest pain sharp pain with radiation to the left arm as well as to the back. Patient could not sleep due to on and off pain and soreness. associate with mild shortness of breath. No nausea or vomiting or abdominal pain. No dizziness or lightheadedness. Denies any cough or sputum production. No recent illnesses. No fever no chills. Denies any worsening leg swelling. Chest x-ray showed small posterior pleural effusion likely on the left. Mild cardiomegaly. CT of the abdomen pelvis showed there is a left-sided spigelian hernia noted with hernia sac measuring 11.3 x 5 cm and contains a segment of sigmoid colon as well as small bowel. No evidence for strangulation at this time. EKG showed atrial fibrillation with ventricular rate greater than 100 Laboratory data showed INR 1.4, WBC 9.2, hemoglobin 14.9 and lymphocytes 0.3 proBNP 2290, BUN 18 and creatinine 0.67 COVID-19 PCR not detected Lipase level is 23 Troponin x3 - liver enzymes are within normal limits. 04/18/2019 Patient is currently resting in bed. Left-sided abdominal pain is better today. Patient was seen by general surgery and is planning for hernia repair on the left abdominal wall. Otherwise patient's heart rate is elevated and metoprolol dose was increased as per cardiology. Anticoagulation is on hold due to possible surgery on Tuesday. Patient otherwise denied any complaints of chest pain or shortness breath. No nausea vomiting or diarrhea. No headache or dizziness lightheadedness. No other acute overnight issues. 04/19/2020 Patient is currently resting in the bed comfortably. Denies any complaints of abdominal pain. Patient was found to have incarcerated hernia with left spigelian hernia. Plan for surgery on Tuesday. Continue to hold Eliquis. Heart rate is better controlled now. Patient was found to have abnormal urine sample and was started on antibiotics. Follow-up urine culture report. Patient has been afebrile. Denies any dysuria hematuria otherwise. Cardiology and general surgery is on board. Current medications reviewed. Objective - Vital Signs Vital signs: Vital Signs Temp 98.1 F 04/19/20 19: Pulse 87 04/19/20 19: Resp 18 04/19/20 19: BP 120/72 04/19/20 19: Pulse Ox 97 04/19/20 19: Intake & Output 04/19/20 04/19/20 04/20/20 06:59 18:59 06:59 Other: Voiding Method Toilet Toilet Toilet # Voids 1 1 - Exam PHYSICAL EXAMINATION: Patient is lying in the bed comfortably, no acute distress, awake alert and oriented.. HEENT: Normocephalic. Neck is supple. Pupils reactive. Nostrils clear. Oral cavity is moist. Ears reveal no drainage. Neck reveals no JVD, carotid bruits, or thyromegaly. CHEST EXAMINATION: Trachea is central. Symmetrical expansion. Lung amezcua clear to auscultation and percussion. CARDIAC: Normal S1, S2 with no gallops. No murmurs ABDOMEN: Soft. Bowel sounds normal. No organomegaly. No abdominal bruits. Extremities: reveal no edema. No clubbing or cyanosis Neurologically awake, alert, oriented x3 with well-coordinated movements. No focal deficits noted Skin: No rash or skin lesions. Psychiatric: Coperative. Nonsuicidal Musculoskeletal: No joint swelling or deformity. Normal range of motion. - Labs CBC & Chem 7: 04/17/20 11:34 04/17/20 11:34 Assessment and Plan Assessment: Atrial fibrillation with rapid ventricle rate. controlled Chest pain. . Ruled out ACS. Possibly due to left-sided hernia sac. 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 No evidence of strangulation noted. incarcerated hernia with left spigelian hernia Hypothyroidism Paroxysmal atrial fibrillation on anticoagulation with Eliquis History of lower lip cancer with removal Rheumatoid arthritis on methotrexate and prednisone at home Hyperlipidemia Previous history of smoking DVT prophylaxis patient is already on full anticoagulation Plan: Patient will be continued on telemetry monitoring. Started on Cardizem drip for rate control. off drip now. Continue with metoprolol and Eliquis on hold. Serial troponin x3 -. Cardiology is on board and general surgery due to hernia sac and symptoms of abdominal pain and bloating sensation. planning for repair on Tuesday . Continue with home medications and further recommendations based on the clinical course. Time with Patient: Greater than 30
--- NOTE | 2020-04-21 02:50 | P.PN ---
Subjective Progress Note Date: 04/20/20 Principal diagnosis: Atrial fibrillation with rapid ventricle rate. controlled Chest pain. . Ruled out ACS. Possibly due to left-sided hernia sac. 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 No evidence of strangulation noted. Patient is a 80-year-old female with a known history of atrial fibrillation on anticoagulation with Eliquis, rheumatoid arthritis, hypothyroidism and previous history of smoking presents to ER with complaints of chest pain below the left breast. Patient states that she has been having problems with passing gas and indigestion. Patient was advised to take MiraLAX. Does have cramping-like pain in the abdomen and few episodes of last night patient had left-sided chest pain sharp pain with radiation to the left arm as well as to the back. Patient could not sleep due to on and off pain and soreness. associate with mild shortness of breath. No nausea or vomiting or abdominal pain. No dizziness or lightheadedness. Denies any cough or sputum production. No recent illnesses. No fever no chills. Denies any worsening leg swelling. Chest x-ray showed small posterior pleural effusion likely on the left. Mild cardiomegaly. CT of the abdomen pelvis showed there is a left-sided spigelian hernia noted with hernia sac measuring 11.3 x 5 cm and contains a segment of sigmoid colon as well as small bowel. No evidence for strangulation at this time. EKG showed atrial fibrillation with ventricular rate greater than 100 Laboratory data showed INR 1.4, WBC 9.2, hemoglobin 14.9 and lymphocytes 0.3 proBNP 2290, BUN 18 and creatinine 0.67 COVID-19 PCR not detected Lipase level is 23 Troponin x3 - liver enzymes are within normal limits. 04/18/2019 Patient is currently resting in bed. Left-sided abdominal pain is better today. Patient was seen by general surgery and is planning for hernia repair on the left abdominal wall. Otherwise patient's heart rate is elevated and metoprolol dose was increased as per cardiology. Anticoagulation is on hold due to possible surgery on Tuesday. Patient otherwise denied any complaints of chest pain or shortness breath. No nausea vomiting or diarrhea. No headache or dizziness lightheadedness. No other acute overnight issues. 04/19/2020 Patient is currently resting in the bed comfortably. Denies any complaints of abdominal pain. Patient was found to have incarcerated hernia with left spigelian hernia. Plan for surgery on Tuesday. Continue to hold Eliquis. Heart rate is better controlled now. Patient was found to have abnormal urine sample and was started on antibiotics. Follow-up urine culture report. Patient has been afebrile. Denies any dysuria hematuria otherwise. Cardiology and general surgery is on board. 04/20/2020 Patient denied any complaints of abdominal pain. No chest pain or shortness of breath. Patient has been afebrile. Urine culture showed gram-negative bacilli. Currently being continued ceftriaxone. Otherwise patient is scheduled for abdominal wall hernia repair tomorrow. Continue to hold Eliquis. Monitor CBC and BMP tomorrow. Cardiology general surgery is on board. Current medications reviewed. Objective - Vital Signs Vital signs: Vital Signs Temp 97.8 F 04/20/20 14:55 Pulse 98 04/20/20 14:55 Resp 16 04/20/20 14:55 BP 114/73 04/20/20 14:55 Pulse Ox 97 04/20/20 14:55 Intake & Output 04/19/20 04/20/20 04/20/20 18:59 06:59 18:59 Other: Voiding Method Toilet Toilet Toilet # Voids 1 2 1 - Exam PHYSICAL EXAMINATION: Patient is lying in the bed comfortably, no acute distress, awake alert and oriented.. HEENT: Normocephalic. Neck is supple. Pupils reactive. Nostrils clear. Oral cavity is moist. Ears reveal no drainage. Neck reveals no JVD, carotid bruits, or thyromegaly. CHEST EXAMINATION: Trachea is central. Symmetrical expansion. Lung amezcua clear to auscultation and percussion. CARDIAC: Normal S1, S2 with no gallops. No murmurs ABDOMEN: Soft. Bowel sounds normal. No organomegaly. No abdominal bruits. Extremities: reveal no edema. No clubbing or cyanosis Neurologically awake, alert, oriented x3 with well-coordinated movements. No focal deficits noted Skin: No rash or skin lesions. Psychiatric: Coperative. Nonsuicidal Musculoskeletal: No joint swelling or deformity. Normal range of motion. - Labs CBC & Chem 7: 04/17/20 11:34 04/17/20 11:34 Labs: Microbiology - Last 24 Hours (Table) 04/18/20 12:15 Urine Culture - Preliminary Urine,Voided Assessment and Plan Assessment: Atrial fibrillation with rapid ventricle rate. controlled Chest pain. . Ruled out ACS. Possibly due to left-sided hernia sac. 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 No evidence of strangulation noted. incarcerated hernia with left spigelian hernia Acute urinary tract infection with gram-negative bacilli. Hypothyroidism Paroxysmal atrial fibrillation on anticoagulation with Eliquis History of lower lip cancer with removal Rheumatoid arthritis on methotrexate and prednisone at home Hyperlipidemia Previous history of smoking DVT prophylaxis patient is already on full anticoagulation Plan: Patient will be continued on telemetry monitoring. Continue with metoprolol and Eliquis on hold. Serial troponin x3 -. c/w ceftriaxone Cardiology is on board and general surgery due to hernia sac and symptoms of abdominal pain and bloating sensation. planning for repair on Tuesday . Continue with home medications and further recommendations based on the clinical course. Time with Patient: Greater than 30
[2020-04-21] MEDS: LEVOTHYROXINE 88 MCG TAB PO SCH (06:23)
[2020-04-21 08:44] LABS: INR 1.3 (<1.2); Prothrombin Time 13.1 sec (9.0-12.0)
[2020-04-21] MEDS ORDERED: LACTATED RINGERS 1,000 ML IV ONE ×2 (09:09→11:23)
[2020-04-21] MEDS ORDERED: HEPARIN SODIUM,PORCINE 5,000 UNIT/ML 1 ML VIAL ONE (09:11)
[2020-04-21] MEDS ORDERED: ONDANSETRON 4 MG/2 ML VIAL ONE (09:11)
[2020-04-21] MEDS ORDERED: ONDANSETRON 4 MG/2 ML VIAL IVP ONE (09:20)
[2020-04-21] MEDS ORDERED: DEXAMETHASONE SOD PHOSPHATE 4 MG/ML 1 ML VIAL IV ONE (09:20)
[2020-04-21 09:30] LABS: African American GFR (CKD) 80.1 (60.0-200.0); Anion Gap 3.2 mmol/L (4.00-12.00); BUN/Creat Ratio 11.25 Ratio (12.00-20.00); Basophils # (A) 0.02 X 10*3/uL (0.00-0.10); Basophils % (A) 0.5 %; Calcium 8.8 mg/dL (8.7-10.3); Carbon Dioxide 29.8 mmol/L (21.6-31.8); Eosinophils # (A) 0.15 X 10*3/uL (0.04-0.35); Eosinophils % (A) 3.8 %; HGB 14.8 g/dL (12.0-15.0); Lymphocytes # (A) 0.65 X 10*3/uL (0.90-5.00); Lymphocytes % (A) 16.6 %; MCH 31.4 pg (27.0-32.0); MCHC 31.5 g/dL (32.0-37.0); MCV 99.6 fL (80.0-97.0); Mean Platelet Volume 11.4 fL (9.5-12.2); Monocytes # (A) 0.59 X 10*3/uL (0.20-1.00); Monocytes % (A) 15.1 %; Neutrophils % (A) 63.7 %; Non-African American GFR(CKD) 69.1 (60.0-200.0); Platelet Count 197 X 10*3/uL (140-440); Potassium 4.7 mmol/L (3.5-5.5); RBC 4.72 X 10*6/uL (4.10-5.20); RDW 13.6 % (11.5-14.5); WBC 3.92 X 10*3/uL (4.50-10.00)
[2020-04-21] MEDS ORDERED: HEPARIN SODIUM,PORCINE 5,000 UNIT/ML 1 ML VIAL SQ ONE (10:17)
[2020-04-21] MEDS ORDERED: NEOSTIGMINE 1 MG/ML 10 ML VIAL ONE (10:28)
[2020-04-21] MEDS ORDERED: SUCCINYLCHOLINE CHLORIDE 100 MG/5 ML SYR IV ONE (10:28)
[2020-04-21] MEDS ORDERED: LIDOCAINE 1% INJ 10MG/ML (20 ML MDV) ONE (10:28)
[2020-04-21] MEDS ORDERED: GLYCOPYRROLATE 0.2 MG/ML 2 ML VIAL ONE (10:28)
[2020-04-21] MEDS ORDERED: PROPOFOL 10 MG/ML 20 ML VIAL IV ONE (10:28)
[2020-04-21] MEDS ORDERED: fentaNYL (PF) 50 MCG/ML 2 ML AMP ONE (10:28)
[2020-04-21] MEDS ORDERED: ROCURONIUM 10 MG/ML (5 ML VIAL) IV ONE (10:28)
[2020-04-21] MEDS ORDERED: PHENYLEPHRINE-0.9% NACL SYG 1,000 MCG/10 ML SYRINGE ONE (10:28)
--- NOTE | 2020-04-21 11:37 | P.OP ---
Date of Procedure: 04/21/20 Preoperative Diagnosis: Left spigelian hernia Postoperative Diagnosis: Left spigelian hernia Procedure(s) Performed: Repair of left groin hernia with mesh Anesthesia: RISSA Surgeon: Lokesh Donohue Estimated Blood Loss (ml): 10 Pathology: none sent Condition: stable Disposition: PACU Description of Procedure: The patient's placed on the operating table in supine position. She received general anesthesia. Her abdomen was prepped and draped usual fashion. A skin incision was made over the left spigelian hernia. Using left cautery and blunt dissection the subcutaneous tissue was divided. The fascia of the abdominal wall was exposed. Fascia external oblique was then opened and then the hernia sac was seen. The hernia sac was invaginated back the peritoneal cavity. The fascial defect was then closed using 3-0 Ethibond suture. A piece of Prolene mesh was then placed over top apparent secured with the secure strep tacker. A NABEEL drains placed over top of the mesh and brought through separate stab incision. Elise's fascia was opened Vicryl. Skin was closed douglas. Patient top she will was sent to recovery room stable condition.
[2020-04-21] MEDS ORDERED: HYDROmorphone 0.5 MG/0.5 ML SYRINGE IVP ONE (12:03)
[2020-04-21] MEDS ORDERED: METOPROLOL TARTRATE 5 MG/5 ML VIAL IVP ONE (12:28)
[2020-04-21] MEDS: CALCIUM CARBONATE 500 MG CHEWABLE PO SCH (13:09)
[2020-04-21] MEDS: MULTIVITAMINS, THERA 1 EACH TAB PO SCH (13:09)
[2020-04-21] MEDS: CHOLECALCIFEROL 25 MCG (1000 IU) TABLET PO SCH (13:09)
[2020-04-21] MEDS: METOPROLOL TARTRATE 50 MG TAB PO SCH ×2 (13:09→20:57)
[2020-04-21] MEDS: predniSONE 5 MG TAB PO SCH (13:10)
[2020-04-21] MEDS: ATORVASTATIN 20 MG TAB PO SCH (13:10)
[2020-04-21] MEDS: LORATADINE 10 MG TAB PO SCH (13:10)
[2020-04-21] MEDS: FAMOTIDINE 20 MG TAB PO SCH (13:10)
[2020-04-21] MEDS: IPRATROPIUM BROMIDE 0.06% NASAL SPRAY (15 ML) EA NOSTRIL SCH (13:10)
--- NOTE | 2020-04-21 14:17 | P.PN ---
Subjective Progress Note Date: 04/21/20 Atrial fibrillation with rapid ventricle rate. controlled Chest pain. Ruled out ACS. Possibly due to left-sided hernia sac. 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 No evidence of strangulation noted. Patient is a 80-year-old female with a known history of atrial fibrillation on anticoagulation with Eliquis, rheumatoid arthritis, hypothyroidism and previous history of smoking presents to ER with complaints of chest pain below the left breast. Patient states that she has been having problems with passing gas and indigestion. Patient was advised to take MiraLAX. Does have cramping-like pain in the abdomen and few episodes of last night patient had left-sided chest pain sharp pain with radiation to the left arm as well as to the back. Patient could not sleep due to on and off pain and soreness. associate with mild shortness of breath. No nausea or vomiting or abdominal pain. No dizziness or lightheadedness. Denies any cough or sputum production. No recent illnesses. No fever no chills. Denies any worsening leg swelling. Chest x-ray showed small posterior pleural effusion likely on the left. Mild cardiomegaly. CT of the abdomen pelvis showed there is a left-sided spigelian hernia noted with hernia sac measuring 11.3 x 5 cm and contains a segment of sigmoid colon as well as small bowel. No evidence for strangulation at this time. EKG showed atrial fibrillation with ventricular rate greater than 100 Laboratory data showed INR 1.4, WBC 9.2, hemoglobin 14.9 and lymphocytes 0.3 proBNP 2290, BUN 18 and creatinine 0.67 COVID-19 PCR not detected Lipase level is 23 Troponin x3 - liver enzymes are within normal limits. 04/18/2019 Patient is currently resting in bed. Left-sided abdominal pain is better today. Patient was seen by general surgery and is planning for hernia repair on the left abdominal wall. Otherwise patient's heart rate is elevated and metoprolol dose was increased as per cardiology. Anticoagulation is on hold due to possible surgery on Tuesday. Patient otherwise denied any complaints of chest pain or shortness breath. No nausea vomiting or diarrhea. No headache or dizziness lightheadedness. No other acute overnight issues. 04/19/2020 Patient is currently resting in the bed comfortably. Denies any complaints of abdominal pain. Patient was found to have incarcerated hernia with left spige mark hernia. Plan for surgery on Tuesday. Continue to hold Eliquis. Heart rate is better controlled now. Patient was found to have abnormal urine sample and was started on antibiotics. Follow-up urine culture report. Patient has been afebrile. Denies any dysuria hematuria otherwise. Cardiology and general surgery is on board. 04/20/2020 Patient denied any complaints of abdominal pain. No chest pain or shortness of breath. Patient has been afebrile. Urine culture showed gram-negative bacilli. Currently being continued ceftriaxone. Otherwise patient is scheduled for abdominal wall hernia repair tomorrow. Continue to hold Eliquis. Monitor CBC and BMP tomorrow. Cardiology [facility] is on board. 04/21/2020 Patient is seen this morning currently going down to have abdominal wall hernia repair with Dr. Donohue. Patient has been nothing by mouth for the procedure and anticoagulant currently on hold. She continues on IV ceftriaxone as urine cultures preliminary showing gram-negative bacilli and awaiting culture finalization. Blood count is 3.92, hemoglobin is 14.8, sodium is 143, potassium is 4.7, current creatinine is 0.8. Will discuss with surgery about when to res ume eliquis. Review of systems: Constitutional: No reports of fatigue, fever, or chills Cardiovascular: No reports of chest pain or palpitations Respiratory: No reports of shortness of breath or cough GI: No reports of nausea, vomiting, or diarrhea : No reports of dysuria or retention Neurovascular: No reports of weakness or numbness All medications have been reviewed Objective - Vital Signs Vital signs: Vital Signs Temp 97.1 F L 04/21/20 11:32 Pulse 112 H 04/21/20 12:30 Resp 16 04/21/20 12:30 BP 149/66 04/21/20 12:30 Pulse Ox 96 04/21/20 12:30 Intake & Output 04/20/20 04/21/20 04/21/20 18:59 06:59 18:59 Intake Total 1150 Output Total 5 Balance 1145 Weight 72.575 kg Intake: IV 1150 Output: Estimated Blood Loss 5 Other: Voiding Method Toilet Toilet # Voids 1 1 1 - Exam Patient is sitting in the bed comfortably, no acute distress, awake alert and oriented.. HEENT: Normocephalic. Neck is supple. Pupils reactive. Nostrils clear. Oral cavity is moist. Ears reveal no drainage. Neck reveals no JVD, carotid bruits, or thyromegaly. CHEST EXAMINATION: Trachea is central. Symmetrical expansion. Lung amezcua clear to auscultation and percussion. CARDIAC: Normal S1, S2 with no gallops. No murmurs ABDOMEN: Soft. Bowel sounds normal. No organomegaly. No abdominal bruits. Extremities: reveal no edema. No clubbing or cyanosis Neurologically awake, alert, oriented x3 with well-coordinated movements. No focal deficits noted Skin: No rash or skin lesions. Psychiatric: Cooperative. Non-suicidal Musculoskeletal: No joint swelling or deformity. Normal range of motion. - Labs CBC & Chem 7: 04/21/20 04:47 04/21/20 04:47 Labs: Abnormal Lab Results - Last 24 Hours (Table) 04/21/20 04/21/20 04/21/20 Range/Units 04:47 04:47 04:47 WBC 3.92 L (4.50-10.00) X 10*3/uL Hct 47.0 H (37.2-46.3) % MCV 99.6 H (80.0-97.0) fL MCHC 31.5 L (32.0-37.0) g/dL Lymphocytes # 0.65 L (0.90-5.00) X 10*3/uL PT 13.1 H (9.0-12.0) sec INR 1.3 H (<1.2) Chloride 110 H (96-109) mmol/L Anion Gap 3.20 L (4.00-12.00) mmol/L BUN/Creatinine Ratio 11.25 L (12.00-20.00) Ratio Microbiology - Last 24 Hours (Table) 04/18/20 12:15 Urine Culture - Preliminary Urine,Voided Gram Neg Bacilli Assessment and Plan Assessment: Atrial fibrillation with rapid ventricle rate. controlled Chest pain. Ruled out ACS. Possibly due to left-sided hernia sac. 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 No evidence of strangulation noted. incarcerated hernia with left spigelian hernia, patient to undergo hernia repair with surgery today Acute urinary tract infection with gram-negative bacilli, currently maintained on ceftriaxone and will await cultures Hypothyroidism Paroxysmal atrial fibrillation on anticoagulation with Eliquis, currently held for procedure today and will discuss with surgery about resuming History of lower lip cancer with removal Rheumatoid arthritis on methotrexate and prednisone at home Hyperlipidemia Previous history of smoking DVT prophylaxis patient is already on full anticoagulation Plan: Patient will be continued on telemetry monitoring. Continue with metoprolol and Eliquis on hold. Serial troponin x3 . Will discuss with surgery and cardiology about resuming anticoagulant after surgery. Urine cultures preliminary showing gram-negative bacilli and will continue with IV ceftriaxone while awaiting for cultures to finalized. Patient scheduled to undergo abdominal wall hernia repair today. Will await report. Cardiology and surgery following.
[2020-04-21] MEDS: HYDROmorphone 1 MG/ML 1 ML SYRINGE IVP PRN (20:57)
[2020-04-22] MEDS: HYDROmorphone 1 MG/ML 1 ML SYRINGE IVP PRN (04:19)
[2020-04-22 08:21] VITALS: BP 100/62; PULSE 77; RESP 17; TEMP 98.1
[2020-04-22] MEDS: MULTIVITAMINS, THERA 1 EACH TAB PO SCH (09:00)
[2020-04-22] MEDS: LEVOTHYROXINE 88 MCG TAB PO SCH (09:00)
[2020-04-22] MEDS: METOPROLOL TARTRATE 50 MG TAB PO SCH (09:00)
[2020-04-22] MEDS ORDERED: ENOXAPARIN 40 MG/0.4 ML SYRINGE SQ SCH (09:00)
[2020-04-22] MEDS: predniSONE 5 MG TAB PO SCH (09:00)
[2020-04-22] MEDS: FAMOTIDINE 20 MG TAB PO SCH (09:01)
[2020-04-22] MEDS: LORATADINE 10 MG TAB PO SCH (09:01)
[2020-04-22] MEDS: ATORVASTATIN 20 MG TAB PO SCH (09:01)
[2020-04-22] MEDS: CHOLECALCIFEROL 25 MCG (1000 IU) TABLET PO SCH (09:06)
--- NOTE | 2020-04-22 11:35 | P.PN ---
Subjective HISTORY OF PRESENTING ILLNESS This is a pleasant 80-year-old female past medical history significant for chronic persistent atrial fibrillation maintained on long-term anticoagulation, dyslipidemia and hypertension. She follows in the office with Dr. Reynolds. She is POD#1 left groin hernia repair with drain placement. She is seen and examined sitting up in bed in no acute distress. She complains of some mild lower abdominal pain at the incision site. She denies chest pain, shortness of breath, dizziness or palpitations. Blood pressure 100/62 heart rate 77 afebrile and maintaining oxygen saturation on room air. Laboratory data revi ewed, hemoglobin 14.8, platelets 197, potassium 4.7, creatinine 0.8. Currently maintained on atorvastatin 20 mg daily and Lopressor 75 mg twice a day. PHYSICAL EXAMINATION CONSTITUTIONAL: No apparent distress. HEENT: Head is normocephalic. Pupils are equal, round. Sclerae anicteric. Mucous membranes of the mouth are moist. No JVD. No carotid bruit. CHEST EXAMINATION: Lungs are clear to auscultation. No chest wall tenderness is noted on palpation or with deep breathing. HEART EXAMINATION: Irregular rate and rhythm. S1, S2 heard. Systolic ejection murmur at the apex, no gallops or rub. EXTREMITIES: 2+ peripheral pulses, no lower extremity edema and no calf tenderness. ASSESSMENT Chest pain, atypical. 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 Discontinue SQ lovenox. Nurse Practitioner note has been reviewed, I agree with a documented findings and plan of care. Patient was seen and examined. Objective - Vital Signs Vital signs: Vital Signs Temp 98.1 F 04/22/20 07:00 Pulse 77 04/22/20 07:00 Resp 17 04/22/20 07:00 BP 100/62 04/22/20 07:00 Pulse Ox 95 04/22/20 07:00 Intake & Output 04/21/20 04/22/20 04/22/20 18:59 06:59 18:59 Intake Total 1700 118 Output Total 5 Balance 1695 118 Weight 72.575 kg Intake: IV 1300 Oral 400 118 Output: Estimated Blood Loss 5 Other: Voiding Method Toilet Toilet # Voids 1 1 - Labs CBC & Chem 7: 04/21/20 04:47 04/21/20 04:47 Labs: Microbiology - Last 24 Hours (Table) 04/21/20 04:47 Blood Culture - Preliminary Blood No Growth after 24 hours 04/18/20 12:15 Urine Culture - Final Urine,Voided Escherichia coli
[2020-04-22] MEDS: CALCIUM CARBONATE 500 MG CHEWABLE PO SCH (12:40)
[2020-04-22] MEDS: IPRATROPIUM BROMIDE 0.06% NASAL SPRAY (15 ML) EA NOSTRIL SCH (12:44)
[2020-04-22] MEDS ORDERED: HYDROcodone/APAP 5-325MG 1 EACH TAB PO PRN (13:11)
--- NOTE | 2020-04-22 13:18 | P.PN ---
Subjective Progress Note Date: 04/22/20 CHIEF COMPLAINT: Left spigelian hernia HISTORY OF PRESENT ILLNESS: Patient is being followed for her left spigelian hernia she is status post repair of left groin hernia with mesh placement. Patient reports that her pain is controlled. She denies any nausea or vomiting. She is tolerating diet. She is afebrile. PHYSICAL EXAM: VITAL SIGNS: Reviewed. GENERAL: Well-developed in no acute distress. HEENT: No sclera icterus. Extraocular movements grossly intact. Moist buccal mucosa. Head is atraumatic, normocephalic. ABDOMEN: Soft. Nondistended. Nontender. Incision dressing clean dry and inta ct in the left groin NABEEL drain with serosanguineous fluid NEUROLOGIC: Alert and oriented. Cranial nerves II through XII grossly intact. ASSESSMENT: 1. Left spigelian hernia status post repair of left groin hernia with mesh placement PLAN: -Patient is stable from surgical standpoint for discharge -Patient is to keep NABEEL drain in place at discharge -Okay to resume Eliquis from surgical standpoint Physician Salesforce Consultant note has been reviewed by physician. Signing provider agrees with the documented findings, assessment, and plan of care. Objective - Vital Signs Vital signs: Vital Signs Temp 98.1 F 04/22/20 07:00 Pulse 77 04/22/20 07:00 Resp 17 04/22/20 07:00 BP 100/62 04/22/20 07:00 Pulse Ox 95 04/22/20 07:00 Intake & Output 04/21/20 04/22/20 04/22/20 18:59 06:59 18:59 Intake Total 1700 118 Output Total 5 Balance 1695 118 Weight 72.575 kg Intake: IV 1300 Oral 400 118 Output: Estimated Blood Loss 5 Other: Voiding Method Toilet Toilet # Voids 1 1 - Labs CBC & Chem 7: 04/21/20 04:47 04/21/20 04:47 Labs: Microbiology - Last 24 Hours (Table) 04/21/20 04:47 Blood Culture - Preliminary Blood No Growth after 24 hours 04/18/20 12:15 Urine Culture - Final Urine,Voided Escherichia coli
--- NOTE | 2020-04-22 14:55 | P.DS ---
Providers Date of admission: 04/18/20 10:47 Expected date of discharge: 04/22/20 Attending physician: Jermaine Randolph Consults: 04/17/20 15:26 Consult Physician Urgent Consulting Provider: Damien Reynolds Consult Reason/Comments: A. fib with RVR Do you want consulting provider notified?: Yes 04/18/20 00:01 Consult Physician Routine Consulting Provider: Lokesh Donohue Consult Reason/Comments: left spigelian hernia Do you want consulting provider notified?: Yes, Notify in am Primary care physician: Jhonny Ryan Hospital Course: Final diagnosis Atrial fibrillation with rapid ventricle rate Chest pain. Ruled out ACS. Possibly due to left-sided hernia sac. 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 No evidence of strangulation noted. incarcerated hernia with left spigelian hernia Acute urinary tract infection with ecoli, present on admission Hypothyroidism Paroxysmal atrial fibrillation on anticoagulation with Eliquis History of lower lip cancer with removal Rheumatoid arthritis on methotrexate and prednisone at home Hyperlipidemia Previous history of smoking DVT prophylaxis Discharge disposition Patient is being discharged in a stable condition with guarded prognosis to home. Patient will follow-up with Dr. Ryan in the outpatient setting upon discharge. Patient is also to follow-up with Dr. Reynolds and surgery Dr. Donohue in the outpatient setting. Total time taken is greater than 35 minutes. Hospital course This is a 80-year-old female who was recently admitted with atrial fibrillation with rapid ventricular rate along with chest pain and ruled out ACS and continued abdominal discomfort and was being closely monitored. Patient was seen and evaluated by cardiology along with surgery she was found to have a left-sided spigelian hernia with hernial sac containing sigmoid colon as well as small bowel with no evidence of strangulation on CT and underwent hernia repair. Patient maintained on anticoagulant Eliquis And resumed per surgery and cardiology recommendations and will continue in the outpatient setting. She does have a NABEEL drain noted in will continue in the outpatient setting with surgical follow-up in one week. Patient has incentive spirometer at the bedside and instructed to continue using at least 10 times every hour while awake and continuing to increase activity as tolerated. Patient was also treated with IV ceftriaxone for the possibility of an acute urinary tract infection and cultures finalized showing E. coli and will continue with Ceftin 500 mg twice daily for the next 3 days to complete the course. Patient instructed to follow-up with her primary care provider upon discharge as well. Currently no reports of chest pain, shortness of breath, or palpitations. Patient is afebrile. No reports of nausea or vomiting and patient is tolerating diet. Patient will be discharged home today. On exam vital signs are stable. Cardio S1, S2 are muffled. Respiratory system shows diminished breath sounds at the bases with no wheezing or rhonchi noted. Abdomen is soft and obese, and mildly tender at the surgical site and dressing is dry and intact. Nervous system shows no focal deficits. Please refer to medication reconciliation sheet for a list of medications. Patient Condition at Discharge: Good Plan - Discharge Summary New Discharge Prescriptions: New Docusate [Colace] 100 mg PO BID #30 capsule HYDROcodone/APAP 5-325MG [[place] 5] 1 each PO Q6HR PRN #10 tab PRN Reason: Pain Metoprolol Tartrate [Lopressor] 75 mg PO BID 30 Days #180 tablet Continue Multivitamins, Thera [Multivitamin (formulary)] 1 tab PO AC-LUNCH Calcium Carbonate [Calcium] 600 mg PO AC-LUNCH metHOTREXate sodium [Methotrexate] 7.5 mg PO GALVAN Levothyroxine Sodium [Synthroid] 88 mcg PO DAILY Ipratropium [place] 0.06%Nasal [Atrovent Nasal 0.06%] 1 spray EA NOSTRIL DAILY predniSONE 5 mg PO DAILY Apixaban [Eliquis] 5 mg PO BID #60 tab Atorvastatin Calcium [Lipitor] 20 mg PO DAILY Famotidine [Pepcid] 20 mg PO DAILY Cetirizine HCl [Zyrtec] 10 mg PO DAILY Cholecalciferol (Vitamin D3) [Vitamin D3 (4,000 Iu)] 4,000 unit PO DAILY Folic Acid 0.8 mg PO DAILY L.acidoph,Paracasei, B.lactis [Probiotic] 1 cap PO DAILY Discontinued Metoprolol Tartrate [Lopressor] 50 mg PO BID Discharge Medication List Calcium Carbonate [Calcium] 600 mg PO AC-LUNCH 04/26/16 [History] Ipratropium [place] 0.06%Nasal [Atrovent Nasal 0.06%] 1 spray EA NOSTRIL DAILY 04/26/16 [History] Levothyroxine Sodium [Synthroid] 88 mcg PO DAILY 04/26/16 [History] Multivitamins, Thera [Multivitamin (formulary)] 1 tab PO AC-LUNCH 04/26/16 [History] metHOTREXate sodium [Methotrexate] 7.5 mg PO AGLVAN 04/26/16 [History] predniSONE 5 mg PO DAILY 04/26/16 [History] Apixaban [Eliquis] 5 mg PO BID #60 tab 04/29/16 [Rx] Atorvastatin Calcium [Lipitor] 20 mg PO DAILY 09/04/19 [History] Cetirizine HCl [Zyrtec] 10 mg PO DAILY 04/17/20 [History] Cholecalciferol (Vitamin D3) [Vitamin D3 (4,000 Iu)] 4,000 unit PO DAILY 04/17/20 [History] Famotidine [Pepcid] 20 mg PO DAILY 04/17/20 [History] Folic Acid 0.8 mg PO DAILY 04/17/20 [History] L.acidoph,Paracasei, B.lactis [Probiotic] 1 cap PO DAILY 04/17/20 [History] Docusate [Colace] 100 mg PO BID #30 capsule 04/22/20 [Rx] HYDROcodone/APAP 5-325MG [[place] 5] 1 each PO Q6HR PRN #10 tab 04/22/20 [Rx] Metoprolol Tartrate [Lopressor] 75 mg PO BID 30 Days #180 tablet 04/22/20 [Rx] Follow up Appointment(s)/Referral(s): Damien Reynolds MD [STAFF PHYSICIAN] - 2 Weeks Jhonny Ryan DO [Primary Care Provider] - 1-2 days Lokesh Donohue MD [STAFF PHYSICIAN] - 1 Week Activity/Diet/Wound Care/Special Instructions: No driving while taking [place] No lifting over 10 pounds You may shower. No soaking or tub baths for 2 weeks Very light activity until you are reevaluated at your follow up appointment with your surgeon Keep a log of NABEEL drain output and bring with you to your follow-up appointment Milk/strip drains 2-3 times a day Follow-up surgery outpatient Follow-up with primary care provider upon discharge Continue with incentive spirometer at home 10 times every hour while awake Continue with abdominal binder when out of bed Discharge Disposition: HOME SELF-CARE
[2020-04-22] MEDS ORDERED: APIXABAN 5 MG TAB PO SCH (21:00)
== END 2020-04-22 16:22 | disposition home or self-care (01) | DRG 354 ==
LOC: EC 10:32 → 6NMEDSUR 15:16 → OBSVTOIN 04-18 10:47
PROVIDERS: ADMIT Internal Medicine; ATTEND Internal Medicine
PROC: 0WUF0JZ Supplement Abdominal Wall with Synthetic Substitute, Open Approach (ICD-10-PCS; principal; 2020-04-21 09:30)
DX: K43.6 Other and unspecified ventral hernia with obstruction, without gangrene (principal); I48.19 Other persistent atrial fibrillation; N39.0 Urinary tract infection, site not specified; J90 Pleural effusion, not elsewhere classified; E78.5 Hyperlipidemia, unspecified; G89.29 Other chronic pain; E66.9 Obesity, unspecified; E03.9 Hypothyroidism, unspecified; I10 Essential (primary) hypertension; B96.20 Unspecified Escherichia coli [E. coli] as the cause of diseases classified elsewhere; K59.00 Constipation, unspecified; Z20.822 Contact with and (suspected) exposure to COVID-19; M06.9 Rheumatoid arthritis, unspecified; Z79.01 Long term (current) use of anticoagulants; Z79.890 Hormone replacement therapy; Z79.899 Other long term (current) drug therapy; Z82.49 Family history of ischemic heart disease and other diseases of the circulatory system; Z85.819 Personal history of malignant neoplasm of unspecified site of lip, oral cavity, and pharynx; Z87.891 Personal history of nicotine dependence; Z90.710 Acquired absence of both cervix and uterus; Z88.1 Allergy status to other antibiotic agents; Z88.8 Allergy status to other drugs, medicaments and biological substances; Z98.890 Other specified postprocedural states; Z68.29 Body mass index [BMI] 29.0-29.9, adult
CPT/HCPCS: 36415; 71046; 74177; 80048; 80053; 80061; 81001; 83690; 83735; 83880; 84443; 84484; 85025; 85379; 85610; 85730; 87040; 87077; 87086; 87186; 87635; 93005; 96365; 96366; 96376; 99285

== ENCOUNTER → 2020-08-07 | Outpatient (CLI) | payer MEDICARE, BC ==
[2020-08-07 20:16] LABS: Basophils # (A) 0.02 X 10*3/uL (0.00-0.10); Basophils % (A) 0.3 %; Eosinophils # (A) 0.04 X 10*3/uL (0.04-0.35); Eosinophils % (A) 0.5 %; HCT 45.3 % (37.2-46.3); HGB 14.3 g/dL (12.0-15.0); Lymphocytes # (A) 0.86 X 10*3/uL (0.90-5.00); Lymphocytes % (A) 11.1 %; MCH 31.5 pg (27.0-32.0); MCHC 31.6 g/dL (32.0-37.0); MCV 99.8 fL (80.0-97.0); Mean Platelet Volume 12.7 fL (9.5-12.2); Monocytes # (A) 0.95 X 10*3/uL (0.20-1.00); Monocytes % (A) 12.3 %; Neutrophils # (A) 5.85 X 10*3/uL (1.80-7.70); Neutrophils % (A) 75.5 %; Platelet Count 168 X 10*3/uL (140-440); RBC 4.54 X 10*6/uL (4.10-5.20); RDW 15.5 % (11.5-14.5); WBC 7.74 X 10*3/uL (4.50-10.00)
[2020-08-07 22:08] LABS: Erythrocyte Sedimentation Rate 4 mm/Hr (0-30)
[2020-08-08 16:41] LABS: ALT 27 U/L (8-44); AST 38 U/L (13-35); African American GFR (CKD) 80.1 (60.0-200.0); C Reactive Protein <0.4 mg/dL (0.0-0.8); Non-African American GFR(CKD) 69.1 (60.0-200.0)
== END | disposition home or self-care (01) ==
LOC: LABWHC1 10:06
PROVIDERS: ATTEND Internal Medicine Rheumatology
DX: M06.9 Rheumatoid arthritis, unspecified (principal)
CPT/HCPCS: 36415; 82565; 84450; 84460; 85025; 85652; 86140

== ENCOUNTER → 2020-12-17 | Outpatient (CLI) | payer MEDICARE, BC ==
[2020-12-17 19:02] LABS: Basophils # (A) 0.03 X 10*3/uL (0.00-0.10); Basophils % (A) 0.5 %; Eosinophils # (A) 0.11 X 10*3/uL (0.04-0.35); Eosinophils % (A) 1.8 %; HCT 47.2 % (37.2-46.3); HGB 15.2 g/dL (12.0-15.0); Lymphocytes # (A) 0.92 X 10*3/uL (0.90-5.00); MCH 32.1 pg (27.0-32.0); MCHC 32.2 g/dL (32.0-37.0); MCV 99.8 fL (80.0-97.0); Mean Platelet Volume 12.6 fL (9.5-12.2); Monocytes # (A) 0.85 X 10*3/uL (0.20-1.00); Monocytes % (A) 13.8 %; Neutrophils # (A) 4.21 X 10*3/uL (1.80-7.70); Neutrophils % (A) 68.6 %; Platelet Count 145 X 10*3/uL (140-440); RBC 4.73 X 10*6/uL (4.10-5.20); RDW 14.5 % (11.5-14.5); WBC 6.14 X 10*3/uL (4.50-10.00)
[2020-12-17 20:32] LABS: Erythrocyte Sedimentation Rate 2 mm/Hr (0-30)
[2020-12-17 21:04] LABS: ALT 35 U/L (8-44); AST 34 U/L (13-35); African American GFR (CKD) 95.4 (60.0-200.0); Non-African American GFR(CKD) 82.3 (60.0-200.0)
[2020-12-17 21:32] LABS: C Reactive Protein <0.30 mg/dL (0.00-0.80)
== END | disposition home or self-care (01) ==
LOC: LABWHC1 09:40
PROVIDERS: ATTEND Internal Medicine Rheumatology
DX: M06.9 Rheumatoid arthritis, unspecified (principal)
CPT/HCPCS: 36415; 82565; 84450; 84460; 85025; 85652; 86140

== ENCOUNTER → 2021-03-05 | Outpatient (CLI) | payer MEDICARE, BC ==
[2021-03-05 14:31] LABS: Basophils # (A) 0.02 X 10*3/uL (0.00-0.10); Basophils % (A) 0.3 %; Eosinophils # (A) 0.07 X 10*3/uL (0.04-0.35); Eosinophils % (A) 1.2 %; HCT 48.1 % (37.2-46.3); HGB 15.5 g/dL (12.0-15.0); Lymphocytes # (A) 0.75 X 10*3/uL (0.90-5.00); MCH 31.5 pg (27.0-32.0); MCHC 32.2 g/dL (32.0-37.0); MCV 97.8 fL (80.0-97.0); Mean Platelet Volume 12.2 fL (9.5-12.2); Monocytes # (A) 0.69 X 10*3/uL (0.20-1.00); Neutrophils % (A) 73.2 %; Platelet Count 150 X 10*3/uL (140-440); RBC 4.92 X 10*6/uL (4.10-5.20); RDW 14.1 % (11.5-14.5); WBC 5.75 X 10*3/uL (4.50-10.00)
[2021-03-05 14:54] LABS: ALT 34 U/L (8-44); AST 36 U/L (13-35); African American GFR (CKD) 93.5 (60.0-200.0); Albumin 3.8 g/dL (3.8-4.9); Alkaline Phosphatase 69 U/L (41-126); BUN/Creat Ratio 20.14 Ratio (12.00-20.00); Blood Urea Nitrogen 14.1 mg/dL (9.0-27.0); Calcium 9.6 mg/dL (8.7-10.3); Carbon Dioxide 25.1 mmol/L (20.0-27.5); Chloride 104 mmol/L (96-109); Chol/HDL Ratio 2.18 Ratio; Glucose 94 mg/dL (70-110); LDL Cholesterol,Calculated 45.2 mg/dL (0.0-131.0); Non-African American GFR(CKD) 80.7 (60.0-200.0); Sodium 141 mmol/L (135-145); Total Protein 5.8 g/dL (6.2-8.2); VLDL Calculation 19.84 mg/dL (5.00-40.00)
[2021-03-05 14:58] LABS: C Reactive Protein <0.30 mg/dL (0.00-0.80)
[2021-03-05 19:03] LABS: Erythrocyte Sedimentation Rate 3 mm/Hr (0-30)
== END | disposition home or self-care (01) ==
LOC: LABWHC1 10:04
PROVIDERS: ATTEND Internal Medicine Interventional Cardiology
DX: E78.2 Mixed hyperlipidemia (principal); M06.9 Rheumatoid arthritis, unspecified
CPT/HCPCS: 36415; 80053; 80061; 85025; 85652; 86140

== ENCOUNTER → 2021-09-09 | Outpatient (CLI) | payer MEDICARE, BC ==
[2021-09-09 14:19] LABS: Basophils # (A) 0.03 X 10*3/uL (0.00-0.10); Basophils % (A) 0.7 %; Eosinophils # (A) 0.08 X 10*3/uL (0.04-0.35); HCT 48.8 % (37.2-46.3); HGB 14.9 g/dL (12.0-15.0); Immature Grans, Automated 0.2 %; Lymphocytes % (A) 24.6 %; MCH 30.4 pg (27.0-32.0); MCHC 30.5 g/dL (32.0-37.0); MCV 99.6 fL (80.0-97.0); Mean Platelet Volume 11.7 fL (9.5-12.2); Monocytes # (A) 0.41 X 10*3/uL (0.20-1.00); Monocytes % (A) 10.1 %; NRBC Per 100 WBC 0 /100 WBCS (0.0-0.0); Neutrophils # (A) 2.54 X 10*3/uL (1.80-7.70); Neutrophils % (A) 62.4 %; Platelet Count 161 X 10*3/uL (140-440); RDW 14.4 % (11.5-14.5); WBC 4.07 X 10*3/uL (4.50-10.00)
[2021-09-09 14:43] LABS: ALT 48 U/L (8-44); AST 62 U/L (13-35); African American GFR (CKD) 91.8 (60.0-200.0); Albumin 3.8 g/dL (3.8-4.9); Albumin/Globulin Ratio 1.86 (1.60-3.17); Alkaline Phosphatase 77 U/L (41-126); BUN/Creat Ratio 19.27 Ratio (12.00-20.00); Blood Urea Nitrogen 13.7 mg/dL (9.0-27.0); Calcium 9.5 mg/dL (8.7-10.3); Chloride 104 mmol/L (96-109); Chol/HDL Ratio 2.31 Ratio; Glucose 93 mg/dL (70-110); LDL Cholesterol,Calculated 51.8 mg/dL (0.0-131.0); Non-African American GFR(CKD) 79.2 (60.0-200.0); Sodium 141 mmol/L (135-145); Total Protein 5.8 g/dL (6.2-8.2); VLDL Calculation 19.56 mg/dL (5.00-40.00)
[2021-09-09 14:44] LABS: C Reactive Protein <0.30 mg/dL (0.00-0.80)
[2021-09-09 15:37] LABS: Erythrocyte Sedimentation Rate 6 mm/Hr (0-30)
== END | disposition home or self-care (01) ==
LOC: LABWHC1 09:15
PROVIDERS: ATTEND Internal Medicine Interventional Cardiology
DX: E78.2 Mixed hyperlipidemia (principal); M06.9 Rheumatoid arthritis, unspecified
CPT/HCPCS: 36415; 80053; 80061; 85025; 85652; 86140

== ENCOUNTER → 2021-12-23 | Outpatient (CLI) | payer MEDICARE, BC ==
[2021-12-23 18:00] LABS: Basophils # (A) 0.04 X 10*3/uL (0.00-0.10); Basophils % (A) 0.5 %; Eosinophils # (A) 0.04 X 10*3/uL (0.04-0.35); Eosinophils % (A) 0.5 %; HCT 50.6 % (37.2-46.3); HGB 16.1 g/dL (12.0-15.0); Immature Grans, Automated 0.3 %; Lymphocytes # (A) 0.98 X 10*3/uL (0.90-5.00); Lymphocytes % (A) 12.5 %; MCH 31.4 pg (27.0-32.0); MCHC 31.8 g/dL (32.0-37.0); MCV 98.6 fL (80.0-97.0); Mean Platelet Volume 12.1 fL (9.5-12.2); Monocytes # (A) 0.74 X 10*3/uL (0.20-1.00); Monocytes % (A) 9.4 %; NRBC Per 100 WBC 0 /100 WBCS (0.0-0.0); Neutrophils # (A) 6.05 X 10*3/uL (1.80-7.70); Neutrophils % (A) 76.8 %; Platelet Count 168 X 10*3/uL (140-440); RBC 5.13 X 10*6/uL (4.10-5.20); RDW 14.2 % (11.5-14.5); WBC 7.87 X 10*3/uL (4.50-10.00)
[2021-12-23 18:20] LABS: Erythrocyte Sedimentation Rate 3 mm/Hr (0-30)
[2021-12-23 18:38] LABS: ALT 32 U/L (8-44); AST 37 U/L (13-35); African American GFR (CKD) 78.7 (60.0-200.0); C Reactive Protein <0.30 mg/dL (0.00-0.80); Non-African American GFR(CKD) 67.9 (60.0-200.0)
== END | disposition home or self-care (01) ==
LOC: LABWHC1 11:59
PROVIDERS: ATTEND Internal Medicine Rheumatology
DX: M06.9 Rheumatoid arthritis, unspecified (principal)
CPT/HCPCS: 36415; 82565; 84450; 84460; 85025; 85652; 86140

== ENCOUNTER → 2022-07-02 | Outpatient (CLI) | payer MEDICARE, BC ==
[2022-07-02 15:46] LABS: Basophils # (A) 0.04 X 10*3/uL (0.00-0.10); Basophils % (A) 0.6 %; Eosinophils # (A) 0.09 X 10*3/uL (0.04-0.35); Eosinophils % (A) 1.4 %; HCT 47.9 % (37.2-46.3); HGB 14.7 g/dL (12.0-15.0); Immature Grans, Automated 0.3 %; Lymphocytes # (A) 0.88 X 10*3/uL (0.90-5.00); Lymphocytes % (A) 13.8 %; MCH 30.5 pg (27.0-32.0); MCHC 30.7 g/dL (32.0-37.0); MCV 99.4 fL (80.0-97.0); Mean Platelet Volume 12.2 fL (9.5-12.2); Monocytes # (A) 0.85 X 10*3/uL (0.20-1.00); Monocytes % (A) 13.3 %; NRBC Per 100 WBC 0 /100 WBCS (0.0-0.0); Neutrophils % (A) 70.6 %; Platelet Count 156 X 10*3/uL (140-440); RBC 4.82 X 10*6/uL (4.10-5.20); RDW 14.6 % (11.5-14.5); WBC 6.38 X 10*3/uL (4.50-10.00)
[2022-07-02 15:58] LABS: Erythrocyte Sedimentation Rate 1 mm/Hr (0-30)
[2022-07-02 16:02] LABS: ALT 22 U/L (8-44); AST 24 U/L (13-35); African American GFR (CKD) 79.4 (60.0-200.0); C Reactive Protein <0.30 mg/dL (0.00-0.80); Non-African American GFR(CKD) 68.5 (60.0-200.0)
== END | disposition home or self-care (01) ==
LOC: LABWHC1 09:57
PROVIDERS: ATTEND Internal Medicine Rheumatology
DX: M06.9 Rheumatoid arthritis, unspecified (principal)
CPT/HCPCS: 36415; 82565; 84450; 84460; 85025; 85652; 86140

== ENCOUNTER 2022-09-11 10:58 | Emergency (ER) | payer MEDICARE, BC ==
[2022-09-11 11:05] VITALS: PULSE 68; TEMP 98
--- NOTE | 2022-09-11 11:23 | ED ---
Back Pain HPI - General Chief Complaint: Back Pain/Injury Stated Complaint: Hip pain, back pain Time Seen by Provider: 09/11/22 11:10 Source: patient, RN notes reviewed, old records reviewed Limitations: no limitations - History of Present Illness Initial Comments: This is a well-appearing 82-year-old female that presents to the emergency room with complaints of left hip pain for the past few days. States has been limping related to an ingrown toenail which was removed yesterday and a callus on her left foot. Denies any fevers. Denies any trauma. Pain worse with palpation deep left buttock radiates down the back of her leg but not past the knee. She states that she does have a history of A. fib, rheumatoid arthritis and is currently on steroids. MD Complaint: back pain -: days(s) (4) Similar Symptoms Previously: No Severity scale (1-10): 8 Quality: sharp Consistency: intermittent Improves With: immobilization, other (rest) Worsens With: movement, walking, other (palpation deep buttock) Context: other (has been limping past few days related to ingrown toenail and callus) - Related Data Home Medications Medication Instructions Recorded Confirmed Calcium Carbonate [Calcium] 600 mg PO AC-LUNCH 04/26/16 04/17/20 Ipratropium [place] 0.06%Nasal 1 spray EA NOSTRIL DAILY 04/26/16 04/17/20 [Atrovent Nasal 0.06%] Levothyroxine Sodium [Synthroid] 88 mcg PO DAILY 04/26/16 04/17/20 Multivitamins, Thera [Multivitamin 1 tab PO AC-LUNCH 04/26/16 04/17/20 (formulary)] metHOTREXate sodium [Methotrexate] 7.5 mg PO GALVAN 04/26/16 04/17/20 predniSONE 5 mg PO DAILY 04/26/16 04/17/20 Atorvastatin Calcium [Lipitor] 20 mg PO DAILY 09/04/19 04/17/20 Cetirizine HCl [Zyrtec] 10 mg PO DAILY 04/17/20 04/17/20 Cholecalciferol (Vitamin D3) 4,000 unit PO DAILY 04/17/20 04/17/20 [Vitamin D3 (4,000 Iu)] Famotidine [Pepcid] 20 mg PO DAILY 04/17/20 04/17/20 Folic Acid 0.8 mg PO DAILY 04/17/20 04/17/20 L.acidoph,Paracasei, B.lactis 1 cap PO DAILY 04/17/20 04/17/20 [Probiotic] Previous Rx's Medication Instructions Recorded Apixaban [Eliquis] 5 mg PO BID #60 tab 04/29/16 Docusate [Colace] 100 mg PO BID #30 capsule 04/22/20 HYDROcodone/APAP 5-325MG [[place] 5] 1 each PO Q6HR PRN #10 tab 04/22/20 Metoprolol Tartrate [Lopressor] 75 mg PO BID 30 Days #180 tablet 04/22/20 cefUROXime axetiL [Ceftin] 500 mg PO BID 3 Days #6 tab 04/22/20 Allergies Allergy/AdvReac Type Severity Reaction Status Date / Time clindamycin Allergy Rash/Hives Verified 09/11/22 11:05 erythromycin base Allergy Rash/Hives Verified 09/11/22 11:05 infliximab [From Remicade] Allergy THROAT Verified 09/11/22 11:05 Swelling Review of Systems ROS Statement: Those systems with pertinent positive or pertinent negative responses have been documented in the HPI. ROS Other: All systems not noted in ROS Statement are negative. 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, past R hand infection POST SX, TINNITIUS History of Any Multi-Drug Resistant Organisms: None Reported Past Surgical History: Heart Catheterization, Hernia Repair, Hysterectomy, Orthopedic Surgery Additional Past Surgical History / Comment(s): eye surgery FOR DOUBLE VISION, HAND SX Past Anesthesia/Blood Transfusion Reactions: No Reported Reaction Past Psychological History: No Psychological Hx Reported Smoking Status: Former smoker Past Alcohol Use History: None Reported Past Drug Use History: None Reported - Past Family History Mother History Unknown: Yes Additional Family Medical History / Comment(s): Mother when pt was born. Father Family Medical History: Coronary Artery Disease (CAD) Additional Family Medical History / Comment(s): Father at the age of 83yrs from heart disease. General Exam Limitations: no limitations Course Vital Signs 09/11/22 09/11/22 11:03 12:36 Temperature 98 F Pulse Rate 68 68 Respiratory 18 20 Rate Blood Pressure 99/75 124/98 O2 Sat by Pulse 96 98 Oximetry Medical Decision Making - Medical Decision Making Was pt. sent in by a medical professional or institution ([facility], CUE WORKER, urgent care, hospital, or long term...) When possible be specific @ -No Did you speak to anyone other than the patient for history (EMS, parent, family, police, friend...)? What history was obtained from this source @ -No Did you review nursing and triage notes (agree or disagree)? Why? @ -I reviewed and agree with nursing and triage notes Were old charts reviewed (outside hosp., previous admission, EMS record, old EKG, old radiological studies, urgent care reports/EKG's, long term records)? Report findings @ -No old charts were reviewed Differential Diagnosis (chest pain, altered mental status, abdominal pain women, abdominal pain men, vaginal bleeding, weakness, fever, dyspnea, syncope, headache, dizziness, GI bleed, back pain, seizure, CVA, palpatations, mental health, musculoskeletal)? @ -Differential Back Pain: Strain, zoster, cauda equina syndrome, epidural abscess, vertebral osteomyelitis, discitis, fracture, subluxation, disc herniation, DJD, spinal stenosis, dissection, AAA, pancreatitis, peptic ulcer disease, pyelonephritis, kidney stone, this is not meant to be an all-inclusive list. EKG interpreted by me (3pts min.). @ -n/a X-rays interpreted by me (1pt min.). @ -yes X-ray of the left hip and pelvis interpreted by me shows no evidence of fracture or dislocation. CT interpreted by me (1pt min.). @ -None done U/S interpreted by me (1pt. min.). @ -None done What testing was considered but not performed or refused? (CT, X-rays, U/S, labs)? Why? @ -None What meds were considered but not given or refused? Why? @ -Patient was offered pain medication and declined stating no pain at rest. Did you discuss the management of the patient with other professionals (professionals i.e. [facility], CUE WORKER, lab, RT, psych nurse, rn social services, wood router hand, teacher, fiscal officer, case management associate)? Give summary @ -No Was smoking cessation discussed for >3mins.? @ -No Was critical care preformed (if so, how long)? @ -No Were there social determinants of health that impacted care today? How? (Homelessness, low income, unemployed, alcoholism, drug addiction, transportation, low edu. Level, literacy, decrease access to med. care, alf, rehab)? @ -No Was there de-escalation of care discussed even if they declined (Discuss DNR or withdrawal of care, Hospice)? DNR status @ -No What co-morbidities impacted this encounter? (DM, HTN, Smoking, COPD, CAD, Cancer, CVA, ARF, Chemo, Hep., AIDS, mental health diagnosis, sleep apnea, morbid obesity)? @ -She states that she does have a history of A. fib, rheumatoid arthritis and is currently on steroids. Was patient admitted / discharged? Hospital course, mention meds given and route, prescriptions, significant lab abnormalities, going to OR and other pertinent info. @ -Discharged This is a well-appearing 82-year-old female that presents to the emergency room with complaints of left hip pain for the past few days. States has been limping related to an ingrown toenail which was removed yesterday and a callus on her left foot. Denies any fevers. Denies any trauma. Pain worse with palpation deep left buttock radiates down the back of her leg but not past the knee. On physical exam patient has bilateral negative straight leg test. Pain with deep palpation of left buttock. Due to patient's history of right wrist fracture, chronic steroid use and history of rheumatoid arthritis, x-ray was ordered. Patient was offered pain medication and declined stating she has no pain at rest. X-ray of the left hip and pelvis interpreted by me shows no evidence of fracture or dislocation. Radiologist interpretation no acute osseous pathology, dislocation or soft tissue swelling. Degenerative changes of the lumbar spine. Patient was offered a pain shot and declined. She was agreeable to taking Tylenol 3 which has helped her in the past. She was given a take-home starter pack as well. Directed to follow-up with the primary care doctor on Tuesday. She is agreeable to this plan of care. Ingrown toenail removed on the left yesterday, callus to the right foot improving with self treatment. Discharge time directed to continue her medications. Follow up with primary care doctor on Tuesday. Case discussed with Dr. Hartman Undiagnosed new problem with uncertain prognosis? @ -No Drug Therapy requiring intensive monitoring for toxicity (Heparin, Nitro, Insulin, Cardizem)? @ -No Were any procedures done? @ -No Diagnosis/symptom? @ -Sacroiliac acute back pain Acute, or Chronic, or Acute on Chronic? @ -Acute Uncomplicated (without systemic symptoms) or Complicated (systemic symptoms)? @ -Uncomplicated Side effects of treatment? @ -No Exacerbation, Progression, or Severe Exacerbation? @ -No Poses a threat to life or bodily function? How? (Chest pain, [place], [place], pneumonia, PE, COPD, DKA, ARF, appy, cholecystitis, CVA, Diverticulitis, Homicidal, Suicidal, threat to staff... and all critical care pts) @ -No Disposition Clinical Impression: Sacroiliac joint pain Disposition: HOME SELF-CARE Condition: Good Instructions (If sedation given, give patient instructions): Acute Low Back Pain (ED), Lower Back Exercises (ED) Additional Instructions: Continue your previously prescribed medications. You can also take Tylenol as needed in addition to topical pain relievers like diclofenac, Voltaren or capsaicin creams may help. Follow-up with your primary care doctor next week. Is patient prescribed a controlled substance at d/c from ED?: No Referrals: Jhonny Ryan DO [Primary Care Provider] - 1-2 days Time of Disposition: 12:14
--- NOTE | 2022-09-11 12:06 | XR ---
EXAMINATION TYPE: XR Hip LT and AP Pelvis DATE OF EXAM: 09/11/2022 11:36 AM INDICATION: Patient age:Female; 82 years old; Reason for study: pain; PHH. COMPARISON: None. TECHNIQUE: The left hip was examined in the frontal and lateral projections and a AP pelvis. FINDINGS: No evidence of any acute osseous pathology, joint dislocation, or soft tissue swelling. Deg enerative changes of the lumbar spine. Left-sided pelvic phlebolith. IMPRESSION: No acute osseous pathology.
[2022-09-11] MEDS ORDERED: Acetaminophen-Codeine 300-30mg TAB PO STA (12:18)
[2022-09-11] MEDS ORDERED: ACET/COD 300 MG/30 MG STARTER PACK 6 TAB BTL PO STA (12:18)
[2022-09-11 12:37] VITALS: BP 124/98; RESP 20
== END 2022-09-11 12:36 | disposition home or self-care (01) ==
LOC: EC 10:58
DX: M25.552 Pain in left hip (principal); I48.91 Unspecified atrial fibrillation; E78.5 Hyperlipidemia, unspecified; E07.9 Disorder of thyroid, unspecified; Z79.52 Long term (current) use of systemic steroids; Z79.890 Hormone replacement therapy; Z79.899 Other long term (current) drug therapy; Z87.891 Personal history of nicotine dependence; Z88.1 Allergy status to other antibiotic agents; Z88.8 Allergy status to other drugs, medicaments and biological substances
CPT/HCPCS: 73502; 99283

== ENCOUNTER → 2022-11-04 | Outpatient (CLI) | payer MEDICARE, BC ==
[2022-11-04 13:20] LABS: HCT 51.3 % (37.2-46.3); HGB 16.1 d/dL (12.0-15.0); MCH 31.4 pg (27.0-32.0); MCHC 31.4 d/dL (32.0-37.0); MCV 100.2 FL (80.0-97.0); Mean Platelet Volume 11.5 FL (9.5-12.2); NRBC Per 100 WBC 0 X 10*3/uL (0.00-0.01); Platelet Count 176 X 10*3/uL (140-440); RBC 5.12 X 10*6/uL (4.10-5.20); RDW 14.4 % (11.5-14.5); WBC 5.01 X 10*3/uL (4.50-10.00)
[2022-11-04 17:26] LABS: ALT 35 U/L (8-44); AST 30 U/L (13-35); Albumin 4.2 d/dL (3.8-4.9); Alkaline Phosphatase 70 U/L (41-126); BUN/Creat Ratio 18.88 Ratio (12.00-20.00); Blood Urea Nitrogen 15.1 mg/dL (9.0-27.0); Calcium 9.7 mg/dL (8.7-10.3); Carbon Dioxide 30.5 mmol/L (21.6-31.8); Chloride 102 mmol/L (96-109); Glucose 88 mg/dL (70-110); Potassium 4.4 mmol/L (3.5-5.5); Sodium 142 mmol/L (135-145); Total Protein 6.2 d/dL (6.2-8.2); VLDL Calculation 18.14 mg/dL (5.00-40.00)
== END | disposition home or self-care (01) ==
LOC: LABWHC1 09:29
PROVIDERS: ATTEND Internal Medicine Interventional Cardiology
DX: I48.11 Longstanding persistent atrial fibrillation (principal); E78.2 Mixed hyperlipidemia
CPT/HCPCS: 36415; 80053; 80061; 85027

== ENCOUNTER → 2023-01-05 | Outpatient (CLI) | payer MEDICARE, BC ==
[2023-01-05 16:21] LABS: Basophils # (A) 0.03 X 10*3/uL (0.00-0.10); Basophils % (A) 0.4 %; Eosinophils # (A) 0.07 X 10*3/uL (0.04-0.35); HCT 45.5 % (37.2-46.3); HGB 14.7 d/dL (12.0-15.0); Lymphocytes # (A) 0.75 X 10*3/uL (0.90-5.00); MCH 32.2 pg (27.0-32.0); MCHC 32.3 d/dL (32.0-37.0); MCV 99.8 FL (80.0-97.0); Mean Platelet Volume 11.4 FL (9.5-12.2); Monocytes # (A) 0.96 X 10*3/uL (0.20-1.00); Monocytes % (A) 14.1 %; NRBC Per 100 WBC 0 X 10*3/uL (0.00-0.01); Neutrophils # (A) 4.97 X 10*3/uL (1.80-7.70); Neutrophils % (A) 73.2 %; Platelet Count 174 X 10*3/uL (140-440); RBC 4.56 X 10*6/uL (4.10-5.20); RDW 14.6 % (11.5-14.5)
[2023-01-05 16:24] LABS: ALT 21 U/L (8-44); AST 23 U/L (13-35); T4, Free (Free Thyroxine) 1.64 ng/dL (0.80-1.80)
[2023-01-05 17:06] LABS: Erythrocyte Sedimentation Rate 4 mm/Hr (0-30)
== END | disposition home or self-care (01) ==
LOC: LABWHC1 10:05
PROVIDERS: ATTEND Internal Medicine Rheumatology
DX: M06.9 Rheumatoid arthritis, unspecified (principal); E03.9 Hypothyroidism, unspecified
CPT/HCPCS: 36415; 82565; 84439; 84443; 84450; 84460; 85025; 85652; 86140

== ENCOUNTER → 2023-04-26 | Outpatient (CLI) | payer MEDICARE, BC ==
[2023-04-26 16:46] LABS: Basophils # (A) 0.04 X 10*3/uL (0.00-0.10); Basophils % (A) 0.7 %; Eosinophils # (A) 0.14 X 10*3/uL (0.04-0.35); Eosinophils % (A) 2.4 %; HCT 49.2 % (37.2-46.3); HGB 15.4 g/dL (12.0-15.0); Lymphocytes # (A) 0.79 X 10*3/uL (0.90-5.00); Lymphocytes % (A) 13.7 %; MCH 31.6 pg (27.0-32.0); MCHC 31.3 g/dL (32.0-37.0); MCV 100.8 FL (80.0-97.0); Monocytes # (A) 0.72 X 10*3/uL (0.20-1.00); Monocytes % (A) 12.5 %; NRBC Per 100 WBC 0 X 10*3/uL (0.00-0.01); Neutrophils # (A) 4.07 X 10*3/uL (1.80-7.70); Neutrophils % (A) 70.4 %; Platelet Count 162 X 10*3/uL (140-440); RBC 4.88 X 10*6/uL (4.10-5.20); WBC 5.78 X 10*3/uL (4.50-10.00)
[2023-04-26 16:54] LABS: ALT 25 U/L (8-44); AST 27 U/L (13-35); C Reactive Protein <0.30 mg/dL (0.00-0.80); LDL Cholesterol,Calculated 46.4 mg/dL (0.0-131.0)
[2023-04-26 17:04] LABS: Erythrocyte Sedimentation Rate 8 mm/Hr (0-30)
== END | disposition home or self-care (01) ==
LOC: LABWHC1 09:42
PROVIDERS: ATTEND Internal Medicine Interventional Cardiology
DX: E78.2 Mixed hyperlipidemia (principal); M06.9 Rheumatoid arthritis, unspecified
CPT/HCPCS: 36415; 80061; 82565; 84450; 84460; 85025; 85652; 86140

== ENCOUNTER → 2023-11-01 | Outpatient (CLI) | payer MEDICARE, BC ==
[2023-11-01 19:23] LABS: ALT 23 U/L (8-44); AST 26 U/L (13-35); Albumin 3.8 g/dL (3.8-4.9); Albumin/Globulin Ratio 2.11 Ratio (1.60-3.17); Alkaline Phosphatase 70 U/L (41-126); BUN/Creat Ratio 16.75 Ratio (12.00-20.00); Blood Urea Nitrogen 13.4 mg/dL (9.0-27.0); Calcium 9.5 mg/dL (8.7-10.3); Chloride 104 mmol/L (96-109); Chol/HDL Ratio 2.21 Ratio; Globulin 1.8 g/dL (1.6-3.3); Glucose 102 mg/dL (70-110); LDL Cholesterol,Calculated 44.8 mg/dL (0.0-131.0); Potassium 4.8 mmol/L (3.5-5.5); Sodium 143 mmol/L (135-145); Total Protein 5.6 g/dL (6.2-8.2)
== END | disposition home or self-care (01) ==
LOC: LABWHC1 09:53
PROVIDERS: ATTEND Internal Medicine Interventional Cardiology
DX: E78.2 Mixed hyperlipidemia (principal)
CPT/HCPCS: 36415; 80053; 80061

== ENCOUNTER → 2024-02-06 | Outpatient (CLI) | payer MEDICARE, BC ==
[2024-02-06 20:52] LABS: Basophils # (A) 0.02 X 10*3/uL (0.00-0.10); Basophils % (A) 0.2 %; Eosinophils # (A) 0.03 X 10*3/uL (0.04-0.35); Eosinophils % (A) 0.3 %; HCT 50.1 % (37.2-46.3); HGB 15.9 g/dL (12.0-15.0); Lymphocytes # (A) 1.54 X 10*3/uL (0.90-5.00); Lymphocytes % (A) 17.8 %; MCH 31.3 pg (27.0-32.0); MCHC 31.7 g/dL (32.0-37.0); MCV 98.6 FL (80.0-97.0); Mean Platelet Volume 12.3 FL (9.5-12.2); Monocytes # (A) 0.75 X 10*3/uL (0.20-1.00); Monocytes % (A) 8.7 %; NRBC Per 100 WBC 0 X 10*3/uL (0.00-0.01); Neutrophils # (A) 6.28 X 10*3/uL (1.80-7.70); Neutrophils % (A) 72.7 %; Platelet Count 174 X 10*3/uL (140-440); RBC 5.08 X 10*6/uL (4.10-5.20); RDW 14.5 % (11.5-14.5); WBC 8.65 X 10*3/uL (4.50-10.00)
[2024-02-06 21:25] LABS: ALT 26 U/L (8-44); AST 29 U/L (13-35); C Reactive Protein <0.30 mg/dL (0.00-0.80); T4, Free (Free Thyroxine) 1.41 ng/dL (0.80-1.80)
[2024-02-06 21:56] LABS: Erythrocyte Sedimentation Rate 12 mm/Hr (0-30)
== END | disposition home or self-care (01) ==
LOC: LABWHC1 15:41
PROVIDERS: ATTEND Internal Medicine Rheumatology
DX: E03.9 Hypothyroidism, unspecified (principal); M06.9 Rheumatoid arthritis, unspecified
CPT/HCPCS: 36415; 82565; 84439; 84443; 84450; 84460; 85025; 85652; 86140

== ENCOUNTER → 2024-05-01 | Outpatient (CLI) | payer MEDICARE, BC ==
[2024-05-01 15:12] LABS: ALT 22 U/L (8-44); AST 28 U/L (13-35); C Reactive Protein <0.30 mg/dL (0.00-0.80); Chol/HDL Ratio 2.08 Ratio
[2024-05-01 15:40] LABS: Basophils # (A) 0.04 X 10*3/uL (0.00-0.10); Basophils % (A) 0.7 %; Eosinophils # (A) 0.13 X 10*3/uL (0.04-0.35); Eosinophils % (A) 2.3 %; HCT 48.3 % (37.2-46.3); Lymphocytes # (A) 0.85 X 10*3/uL (0.90-5.00); Lymphocytes % (A) 15.2 %; MCH 30.3 pg (27.0-32.0); MCHC 31.1 g/dL (32.0-37.0); MCV 97.6 FL (80.0-97.0); Mean Platelet Volume 12.1 FL (9.5-12.2); Monocytes # (A) 0.73 X 10*3/uL (0.20-1.00); NRBC Per 100 WBC 0 X 10*3/uL (0.00-0.01); Neutrophils # (A) 3.84 X 10*3/uL (1.80-7.70); Neutrophils % (A) 68.6 %; Platelet Count 175 X 10*3/uL (140-440); RBC 4.95 X 10*6/uL (4.10-5.20); RDW 14.6 % (11.5-14.5)
[2024-05-01 16:03] LABS: Erythrocyte Sedimentation Rate 3 mm/Hr (0-30)
== END | disposition home or self-care (01) ==
LOC: LABWHC1 10:22
PROVIDERS: ATTEND Internal Medicine Rheumatology
DX: E78.2 Mixed hyperlipidemia (principal); M06.9 Rheumatoid arthritis, unspecified
CPT/HCPCS: 36415; 80061; 82565; 84450; 84460; 85025; 85652; 86140

== ENCOUNTER 2024-05-21 11:01 | Emergency (ER) | payer MEDICARE, BC ==
--- NOTE | 2024-05-21 11:36 | ED ---
URI HPI - General Source: patient, RN notes reviewed Mode of arrival: ambulatory Limitations: no limitations <Johnathon Montiel - Last Filed: 05/21/24 11:34> - General Source: patient, RN notes reviewed Mode of arrival: ambulatory Limitations: no limitations <Moise Hartman - Last Filed: 05/21/24 14:44> - General Chief Complaint: Upper Respiratory Infection Stated Complaint: TIFFANY Time Seen by Provider: 05/21/24 11:18 - History of Present Illness Initial Comments: Quick note: This is an 84-year-old female with history of lung cancer presenting with difficulty breathing x 7 days. Patient endorses seeing PCP x 6 days ago where she was diagnosed with the flu and given TheraFlu and steroids. Endorses ongoing dyspnea, chest congestion and nasal congestion despite completing medication. Also endorses stomach doing "flip-flops" but denies abdominal pain, nausea/vomiting or diarrhea. (Johnathon Montiel) Patient is an 84-year-old female present to the emergency department with cough and some mild dyspnea. Patient denies any history of any previous lung problems to me, see above. Patient denies COPD or asthma. Patient states she was recently diagnosed with flu. Patient was put on steroids and antibiotics and "TheraFlu ". Patient denies lung cancer. Family is present and also in agreement with her. (Moise Hartman) - Related Data Home Medications Medication Instructions Recorded Confirmed Calcium Carbonate [Calcium] 600 - 1,200 mg PO DAILY 04/26/16 05/21/24 Ipratropium [place]ela 0.06%Nasal 1 spray EA NOSTRIL DAILY 04/26/16 05/21/24 [Atrovent Nasal 0.06%] Levothyroxine Sodium [Synthroid] 88 mcg PO DAILY 04/26/16 05/21/24 metHOTREXate sodium [Methotrexate] 7.5 mg PO DIRECTED 04/26/16 05/21/24 predniSONE 5 mg PO DIRECTED 04/26/16 05/21/24 Atorvastatin Calcium [Lipitor] 20 mg PO DAILY 09/04/19 05/21/24 Cetirizine HCl [Zyrtec] 10 mg PO DAILY 04/17/20 05/21/24 Folic Acid 0.8 mg PO DAILY 04/17/20 05/21/24 D-Mannose 2 cap PO DAILY 03/17/25 03/17/25 Vitamin D3(Unknown Dose) 2 tab PO DAILY 05/21/24 05/21/24 predniSONE See Taper PO DAILY 05/21/24 05/21/24 Previous Rx's Medication Instructions Recorded Apixaban [Eliquis] 5 mg PO BID #60 tab 04/29/16 Metoprolol Tartrate [Lopressor] 75 mg PO BID 30 Days #180 tablet 04/22/20 Albuterol Nebulized [Ventolin 2.5 mg INHALATION QID PRN #75 ml 05/21/24 Nebulized] Allergies Allergy/AdvReac Type Severity Reaction Status Date / Time clindamycin Allergy Rash/Hives Verified 05/21/24 14:33 erythromycin base Allergy Rash/Hives Verified 05/21/24 14:33 infliximab [From Remicade] Allergy Anaphylaxis Verified 05/21/24 14:33 Review of Systems ROS Other: All systems not noted in ROS Statement are negative. <Johnathon Montiel - Last Filed: 05/21/24 11:34> ROS Other: All systems not noted in ROS Statement are negative. Constitutional: Denies: fever Eyes: Denies: eye pain ENT: Reports: congestion Respiratory: Reports: as per HPI, cough, dyspnea Cardiovascular: Denies: chest pain Endocrine: Denies: fatigue Gastrointestinal: Denies: abdominal pain Neurological: Denies: weakness <Moise Hartman - Last Filed: 05/21/24 14:44> ROS Statement: Those systems with pertinent positive or pertinent negative responses have been documented in the HPI. 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, past R hand infection POST SX, TINNITIUS History of Any Multi-Drug Resistant Organisms: None Reported Past Surgical History: Heart Catheterization, Hernia Repair, Hysterectomy, Orthopedic Surgery Additional Past Surgical History / Comment(s): eye surgery FOR DOUBLE VISION, HAND SX Past Anesthesia/Blood Transfusion Reactions: No Reported Reaction Past Psychological History: No Psychological Hx Reported Smoking Status: Former smoker Past Alcohol Use History: None Reported Past Drug Use History: None Reported - Past Family History Mother History Unknown: Yes Additional Family Medical History / Comment(s): Mother when pt was born. Father Family Medical History: Coronary Artery Disease (CAD) Additional Family Medical History / Comment(s): Father at the age of 83yrs from heart disease. <Johnathon Montiel - Last Filed: 05/21/24 11:34> General Exam Limitations: no limitations <Johnathon Montiel - Last Filed: 05/21/24 11:34> Limitations: no limitations General appearance: alert, in no apparent distress Head exam: Present: normocephalic Eye exam: Present: normal appearance Neck exam: Present: normal inspection Respiratory exam: Present: wheezes Cardiovascular Exam: Present: regular rate, normal rhythm GI/Abdominal exam: Present: soft, normal bowel sounds. Absent: distended, tenderness, guarding, rebound, rigid, pulsatile mass Extremities exam: Present: normal inspection Neurological exam: Present: alert Psychiatric exam: Present: normal affect, normal mood Skin exam: Present: normal color <Moise Hartman - Last Filed: 05/21/24 14:44> - General Exam Comments Initial Comments: Visual Physical Exam Vital signs reviewed General: Well-appearing, nontoxic, no acute distress. Patient seated in wheelchair Head: Normocephalic, atraumatic Eyes: PERRLA, EOMI ENT: Airway patent Chest: Nonlabored breathing Skin: No visual rash, normal skin tone Neuro: Alert and oriented 3 Musculoskeletal: No gross abnormalities (Johnathon Montiel) Course Vital Signs 05/21/24 05/21/24 05/21/24 11:12 13:59 14:18 Temperature 98.4 F Pulse Rate 84 74 76 Respiratory 22 20 Rate Blood Pressure 135/85 179/108 O2 Sat by Pulse 96 94 L Oximetry 05/21/24 14:24 Temperature Pulse Rate 80 Respiratory Rate Blood Pressure O2 Sat by Pulse Oximetry Medical Decision Making <Johnathon Montiel - Last Filed: 05/21/24 11:34> <Moise Hartman - Last Filed: 05/21/24 14:44> - Medical Decision Making I completed the quick note portion of this chart signed ELAINA Palomares (Johnathon Montiel) Was pt. sent in by a medical professional or institution ([facility], RELOCATION SPECIALIST, urgent care, hospital, or intermediate...) When possible be specific @ -No Did you speak to anyone other than the patient for history (EMS, parent, family, police, friend...)? What history was obtained from this source @ -Family is present and also denies history of lung cancer. Did you review nursing and triage notes (agree or disagree)? Why? @ -I reviewed and agree with nursing and triage notes Were old charts reviewed (outside hosp., previous admission, EMS record, old EKG, old radiological studies, urgent care reports/EKG's, intermediate records)? Report findings @ -No old charts were reviewed Differential Diagnosis (chest pain, altered mental status, abdominal pain women, abdominal pain men, vaginal bleeding, weakness, fever, dyspnea, syncope, headache, dizziness, GI bleed, back pain, seizure, CVA, palpatations, mental health, musculoskeletal)? @ -Differential Dyspnea: Coronary syndrome, arrhythmia, tamponade, asthma, COPD, pulmonary embolism, pneumonia, pneumothorax, pulmonary effusion, anaphylaxis, diabetic ketoacidosis, flailed chest, pulmonary contusion, diaphragmatic rupture, anemia, neuromuscular, this is not meant to be an all-inclusive list. EKG interpreted by me (3pts min.). @ -As above X-rays interpreted by me (1pt min.). @ -Chest x-ray shows no acute process CT interpreted by me (1pt min.). @ -None done U/S interpreted by me (1pt. min.). @ -None done What testing was considered but not performed or refused? (CT, X-rays, U/S, labs)? Why? @ -None What meds were considered but not given or refused? Why? @ -None Did you discuss the management of the patient with other professionals (professionals i.e. , PA, RELOCATION SPECIALIST, lab, RT, psych nurse, social security assessor, process control engineer, teacher, foreign service officer, sample case porter)? Give summary @ -No Was smoking cessation discussed for >3mins.? @ -No Was critical care preformed (if so, how long)? @ -No Were there social determinants of health that impacted care today? How? (Homelessness, low income, unemployed, alcoholism, drug addiction, transportation, low edu. Level, literacy, decrease access to med. care, fdc, rehab)? @ -No Was there de-escalation of care discussed even if they declined (Discuss DNR or withdrawal of care, Hospice)? DNR status @ -No What co-morbidities impacted this encounter? (DM, HTN, Smoking, COPD, CAD, Cancer, CVA, ARF, Chemo, Hep., AIDS, mental health diagnosis, sleep apnea, morbid obesity)? @ -None Was patient admitted / discharged? Hospital course, mention meds given and route, prescriptions, significant lab abnormalities, going to OR and other pertinent info. @ -Patient presents with upper respiratory symptoms, positive for flu. Patient does have some wheezing improved with nebulizer treatment. Patient would like to be discharged and is receptive to inhaler at home. Patient is still on steroid pack. Patient advised to return if symptoms worsen and is in agreement. Undiagnosed new problem with uncertain prognosis? @ -No Drug Therapy requiring intensive monitoring for toxicity (Heparin, Nitro, Insulin, Cardizem)? @ -No Were any procedures done? @ -No Diagnosis/symptom? @ -Influenza, wheezing Acute, or Chronic, or Acute on Chronic? @ -Acute, acute Uncomplicated (without systemic symptoms) or Complicated (systemic symptoms)? @ -Default Side effects of treatment? @ -No Exacerbation, Progression, or Severe Exacerbation? @ -No Poses a threat to life or bodily function? How? (Chest pain, [place], [place], pneumonia, PE, COPD, DKA, ARF, appy, cholecystitis, CVA, Diverticulitis, Homicidal, Suicidal, threat to staff... and all critical care pts) @ -Threat to pulmonary function (Moise Hartman) Disposition <Johnathon Montiel - Last Filed: 05/21/24 11:34> Is patient prescribed a controlled substance at d/c from ED?: No Time of Disposition: 14:44 <Moise Hartman - Last Filed: 05/21/24 14:44> Clinical Impression: Influenza Disposition: HOME SELF-CARE Condition: Stable Instructions (If sedation given, give patient instructions): Wheezing (ED), Influenza (ED) Additional Instructions: Prescription sent to pharmacy. Please do follow-up with primary care physician in the next couple of days for recheck. Return for fevers, difficulty breathing, worsening or changing symptoms or other concerns. Prescriptions: Albuterol Nebulized [Ventolin Nebulized] 2.5 mg INHALATION QID PRN #75 ml PRN Reason: Dyspnea Referrals: Jhonny Ryan DO [Primary Care Provider] - 1-2 days
--- NOTE | 2024-05-21 11:42 | XR ---
EXAMINATION TYPE: XR chest 2V DATE OF EXAM: 05/21/2024 11:26 AM COMPARISON: 04/17/2020 CLINICAL INDICATION: Female, 84 years old with history of Cough: Shortness of breath TECHNIQUE: XR chest 2V views of the chest are obtained. FINDINGS: Scattered senescent parenchymal changes noted. Hyperinflation compatible with COPD. No evidence for infiltrate. No evidence for atelectasis. Heart size is stable. Mediastinal structures are stable and grossly unremarkable. No evidence for hilar prominence. Degenerative changes dorsal spine. IMPRESSION: 1. No evidence for acute pulmonary disease. [facility], , 05/21/2024 11:39 AM
[2024-05-21] MEDS: IPRATROPIUM-ALBUTEROL 3 ML NEB INHALATION STA (14:16)
[2024-05-21 15:12] VITALS: BP 107/85; PULSE 100; RESP 18; TEMP 97.6
== END 2024-05-21 15:12 | disposition home or self-care (01) ==
LOC: EC 11:01
DX: J11.1 Influenza due to unidentified influenza virus with other respiratory manifestations (principal); Z88.1 Allergy status to other antibiotic agents; Z88.8 Allergy status to other drugs, medicaments and biological substances; Z87.891 Personal history of nicotine dependence
CPT/HCPCS: 71046; 94640; 99285

== ENCOUNTER 2024-05-23 11:30 | Observation (INO) | payer MEDICARE, BC ==
--- NOTE | 2024-05-23 12:04 | ED ---
SOB HPI - General Chief Complaint: Shortness of Breath Stated Complaint: albina Time Seen by Provider: 05/23/24 12:03 Source: patient, family, EMS, RN notes reviewed, old records reviewed Mode of arrival: EMS Limitations: no limitations - History of Present Illness Initial Comments: 84-year-old female presented the ER via EMS for evaluation of shortness of breath. Patient states she was recently diagnosed with influenza A by PCP on 05/16/24. She was started on TheraFlu and steroids. She was seen here on 05-21-2024 for evaluation of mild dyspnea. Chest x-ray completed at that time negative. Patient was discharged home with nebulized albuterol. Patient states she has not been using nebulized albuterol treatments as she is unsure how to use them. She states over the past days she has had a increasing difficulty breathing. She denies any fevers or chills. No chest pain or palpitations. Patient does not typically wear oxygen at home. She denies exertional dyspnea, peripheral edema orthopnea. Patient denies any dizziness, lightheadedness, chest pain, nausea, vomiting, abdominal pain, urinary complaints, constipation/diarrhea or other complaints at this time. - Related Data Home Medications Medication Instructions Recorded Confirmed Calcium Carbonate [Calcium] 600 - 1,200 mg PO DAILY 04/26/16 05/23/24 Ipratropium [place] 0.06%Nasal 1 spray EA NOSTRIL DAILY 04/26/16 05/23/24 [Atrovent Nasal 0.06%] Levothyroxine Sodium [Synthroid] 88 mcg PO DAILY 04/26/16 05/23/24 metHOTREXate sodium [Methotrexate] 7.5 mg PO DIRECTED 04/26/16 05/23/24 predniSONE 5 mg PO DIRECTED 04/26/16 05/23/24 Atorvastatin Calcium [Lipitor] 20 mg PO DAILY 09/04/19 05/23/24 Cetirizine HCl [Zyrtec] 10 mg PO DAILY 04/17/20 05/23/24 Folic Acid 0.8 mg PO DAILY 04/17/20 05/23/24 D-Mannose 2 cap PO DAILY 05/21/24 05/23/24 Vitamin D3(Unknown Dose) 2 tab PO DAILY 05/21/24 05/23/24 predniSONE See Taper PO DAILY 05/21/24 05/23/24 Albuterol Nebulized [Ventolin 2.5 mg INHALATION RT-QID PRN 05/23/24 05/23/24 Nebulized] Previous Rx's Medication Instructions Recorded Apixaban [Eliquis] 5 mg PO BID #60 tab 04/29/16 Metoprolol Tartrate [Lopressor] 75 mg PO BID 30 Days #180 tablet 04/22/20 Allergies Allergy/AdvReac Type Severity Reaction Status Date / Time clindamycin Allergy Rash/Hives Verified 05/23/24 14:43 erythromycin base Allergy Rash/Hives Verified 05/23/24 14:43 infliximab [From Remicade] Allergy Anaphylaxis Verified 05/23/24 14:43 Review of Systems ROS Statement: Those systems with pertinent positive or pertinent negative responses have been documented in the HPI. ROS Other: All systems not noted in ROS Statement are negative. 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, past R hand infection POST SX, TINNITIUS History of Any Multi-Drug Resistant Organisms: None Reported Past Surgical History: Heart Catheterization, Hernia Repair, Hysterectomy, Orthopedic Surgery Additional Past Surgical History / Comment(s): eye surgery FOR DOUBLE VISION, HAND SX Past Anesthesia/Blood Transfusion Reactions: No Reported Reaction Past Psychological History: No Psychological Hx Reported Smoking Status: Former smoker Past Alcohol Use History: None Reported Past Drug Use History: None Reported - Past Family History Mother History Unknown: Yes Additional Family Medical History / Comment(s): Mother when pt was born. Father Family Medical History: Coronary Artery Disease (CAD) Additional Family Medical History / Comment(s): Father at the age of 83yrs from heart disease. General Exam Limitations: no limitations General appearance: alert, in no apparent distress Neck exam: Present: normal inspection. Absent: tenderness, meningismus, lymphadenopathy Respiratory exam: Present: wheezes (expriatory bilaterally) Cardiovascular Exam: Present: regular rate, normal rhythm, normal heart sounds. Absent: systolic murmur, diastolic murmur, rubs, gallop, clicks GI/Abdominal exam: Present: soft, normal bowel sounds. Absent: distended, tenderness, guarding, rebound, rigid Extremities exam: Present: normal inspection, full ROM, normal capillary refill. Absent: tenderness, pedal edema, joint swelling, calf tenderness Neurological exam: Present: alert, oriented X3, CN II-XII intact Skin exam: Present: warm, dry, intact, normal color. Absent: rash Course Vital Signs 05/23/24 05/23/24 05/23/24 11:31 11:38 12:41 Temperature 97.6 F Pulse Rate 56 L 93 Respiratory 22 26 H 18 Rate Blood Pressure 138/85 O2 Sat by Pulse 96 Oximetry 05/23/24 12:51 Temperature Pulse Rate 94 Respiratory 18 Rate Blood Pressure O2 Sat by Pulse Oximetry - Reevaluation(s) Reevaluation #1: 05/23/24 14:25 Case discussed with sound physician, Dr. Cooper, for admission. Medical Decision Making - Medical Decision Making Was pt. sent in by a medical professional or institution (, PA, CAREER TECHNICAL EDUCATION TEACHER, urgent care, hospital, or assisted...) When possible be specific @ -No Did you speak to anyone other than the patient for history (EMS, parent, family, police, friend...)? What history was obtained from this source @ -No Did you review nursing and triage notes (agree or disagree)? Why? @ -I reviewed and agree with nursing and triage notes Were old charts reviewed (outside hosp., previous admission, EMS record, old EKG, old radiological studies, urgent care reports/EKG's, assisted records)? Report findings @ -Yes, I reviewed ER visit from 05-21-2024. Chest x-ray negative at that time. Patient discharged with albuterol nebulizer. Differential Diagnosis (chest pain, altered mental status, abdominal pain women, abdominal pain men, vaginal bleeding, weakness, fever, dyspnea, syncope, headache, dizziness, GI bleed, back pain, seizure, CVA, palpatations, mental health, musculoskeletal)? @ -Differential Dyspnea: Coronary syndrome, arrhythmia, tamponade, asthma, COPD, pulmonary embolism, pneumonia, pneumothorax, pulmonary effusion, anaphylaxis, diabetic ketoacidosis, flailed chest, pulmonary contusion, diaphragmatic rupture, anemia, neuromuscular, this is not meant to be an all- inclusive list. EKG interpreted by me (3pts min.). @ -As above X-rays interpreted by me (1pt min.). @ -CXR interpreted by me negative for focal consolidations, pneumothorax or pleural effusions. CT interpreted by me (1pt min.). @ -None done U/S interpreted by me (1pt. min.). @ -None done What testing was considered but not performed or refused? (CT, X-rays, U/S, labs)? Why? @ -None What meds were considered but not given or refused? Why? @ -None Did you discuss the management of the patient with other professionals (professionals i.e. DrKathy, PA, CAREER TECHNICAL EDUCATION TEACHER, lab, RT, psych nurse, health and social care teacher, carpet cutter, teacher, property portfolio officer, case monitor)? Give summary @ -Yes, case discussed with sound physician, Dr. Cooper who accepts admission. Was smoking cessation discussed for >3mins.? @ -No Was critical care preformed (if so, how long)? @ -No Were there social determinants of health that impacted care today? How? (Homelessness, low income, unemployed, alcoholism, drug addiction, transportation, low edu. Level, literacy, decrease access to med. care, snf, rehab)? @ -No Was there de-escalation of care discussed even if they declined (Discuss DNR or withdrawal of care, Hospice)? DNR status @ -No What co-morbidities impacted this encounter? (DM, HTN, Smoking, COPD, CAD, Cancer, CVA, ARF, Chemo, Hep., AIDS, mental health diagnosis, sleep apnea, morbid obesity)? @ -Atrial fibrillation on Eliquis, Hyperlipidemia, rheumatoid arthritis, thyroid disorder Was patient admitted / discharged? Hospital course, mention meds given and route, prescriptions, significant lab abnormalities, going to OR and other pertinent info. @ -Admitted. 84-year-old female presented the ER via EMS for evaluation of dyspnea. Upon arrival patient is mildly tachypneic respiratory rate 26. Patie nt is currently saturating 96% on room air. Vitals otherwise with acceptable limits. Exam remarkable for bilateral expiratory wheezing throughout all lung amezcua. Laboratory studies obtained concerning of dehydration hemoglobin 16.6. WBC 9.9. Total bilirubin 1.6, AST 45, ALT 67. Lactic 2.3 for which patient received IV fluids. Influenza A positive. CXR negative for acute process. Patient received DuoNeb nebulizer treatment in the ER with mild improvement of symptoms. Upon reevaluation, patient resting comfortably in exam room no signs of acute distress. Results discussed with patient, all questions answered. Admission was offered to patient given her age and comorbidites with concern of dehydration, patient is agreeable. Admission accepted by Dr. Cooper, [facility] physician. Patient admitted in stable condition. Case discussed with ED attending, Dr. Sandhu. Undiagnosed new problem with uncertain prognosis? @ -No Drug Therapy requiring intensive monitoring for toxicity (Heparin, Nitro, Insulin, Cardizem)? @ -No Were any procedures done? @ -No Diagnosis/symptom? @ -Influenza A/acute viral sinusitis/dehydration Acute, or Chronic, or Acute on Chronic? @ -Acute Uncomplicated (without systemic symptoms) or Complicated (systemic symptoms)? @ -Complicated Side effects of treatment? @ -No Exacerbation, Progression, or Severe Exacerbation? @ -No Poses a threat to life or bodily function? How? (Chest pain, USA, GA, pneumonia, PE, COPD, DKA, ARF, appy, cholecystitis, CVA, Diverticulitis, Homicidal, Suicidal, threat to staff... and all critical care pts) @ -No - Lab Data Result diagrams: 05/23/24 12:09 05/23/24 12:09 Lab Results 05/23/24 05/23/24 05/23/24 Range/Units 12:09 12:09 12:09 WBC 9.9 (3.8-10.6) k/uL RBC 5.42 H (3.80-5.40) m/uL Hgb 16.6 H (11.4-16.0) gm/dL Hct 50.2 H (34.0-46.0) % MCV 92.7 (80.0-100.0) fL MCH 30.7 (25.0-35.0) pg MCHC 33.1 (31.0-37.0) g/dL RDW 14.6 (11.5-15.5) % Plt Count 173 (150-450) k/uL MPV 8.9 Neutrophils % 83 % Lymphocytes % 9 % Monocytes % 6 % Eosinophils % 0 % Basophils % 0 % Neutrophils # 8.3 H (1.3-7.7) k/uL Lymphocytes # 0.9 L (1.0-4.8) k/uL Monocytes # 0.6 (0-1.0) k/uL Eosinophils # 0.0 (0-0.7) k/uL Basophils # 0.0 (0-0.2) k/uL Sodium 136 L (137-145) mmol/L Potassium 4.3 (3.5-5.1) mmol/L Chloride 101 (98-107) mmol/L Carbon Dioxide 29 (22-30) mmol/L Anion Gap 6 mmol/L BUN 17 (7-17) mg/dL Creatinine 0.69 (0.52-1.04) mg/dL Est GFR (CKD-EPI)AfAm >90 (>60 ml/min/1.73 sqM) Est GFR (CKD-EPI)NonAf 80 (>60 ml/min/1.73 sqM) Glucose 102 H (74-99) mg/dL Lactic Ac Sepsis Rflx Plasma Lactic Acid Patrick 2.3 H* (0.7-2.0) mmol/L Calcium 9.4 (8.4-10.2) mg/dL Total Bilirubin 1.6 H (0.2-1.3) mg/dL AST 45 H (14-36) U/L ALT 67 H (4-34) U/L Alkaline Phosphatase 63 (38-126) U/L Total Protein 6.1 L (6.3-8.2) g/dL Albumin 3.5 (3.5-5.0) g/dL Influenza Type A (PCR) (Not Detectd) Influenza Type B (PCR) (Not Detectd) RSV (PCR) (Not Detectd) SARS-CoV-2 (PCR) (Not Detectd) 05/23/24 05/23/24 05/23/24 Range/Units 12:47 12:52 14:53 WBC (3.8-10.6) k/uL RBC (3.80-5.40) m/uL Hgb (11.4-16.0) gm/dL Hct (34.0-46.0) % MCV (80.0-100.0) fL MCH (25.0-35.0) pg MCHC (31.0-37.0) g/dL RDW (11.5-15.5) % Plt Count (150-450) k/uL MPV Neutrophils % % Lymphocytes % % Monocytes % % Eosinophils % % Basophils % % Neutrophils # (1.3-7.7) k/uL Lymphocytes # (1.0-4.8) k/uL Monocytes # (0-1.0) k/uL Eosinophils # (0-0.7) k/uL Basophils # (0-0.2) k/uL Sodium (137-145) mmol/L Potassium (3.5-5.1) mmol/L Chloride (98-107) mmol/L Carbon Dioxide (22-30) mmol/L Anion Gap mmol/L BUN (7-17) mg/dL Creatinine (0.52-1.04) mg/dL Est GFR (CKD-EPI)AfAm (>60 ml/min/1.73 sqM) Est GFR (CKD-EPI)NonAf (>60 ml/min/1.73 sqM) Glucose (74-99) mg/dL Lactic Ac Sepsis Rflx Y Plasma Lactic Acid Patrick 2.6 H* (0.7-2.0) mmol/L Calcium (8.4-10.2) mg/dL Total Bilirubin (0.2-1.3) mg/dL AST (14-36) U/L ALT (4-34) U/L Alkaline Phosphatase (38-126) U/L Total Protein (6.3-8.2) g/dL Albumin (3.5-5.0) g/dL Influenza Type A (PCR) Detected A (Not Detectd) Influenza Type B (PCR) Not Detected (Not Detectd) RSV (PCR) Not Detected (Not Detectd) SARS-CoV-2 (PCR) Not Detected (Not Detectd) 05/23/24 Range/Units 16:17 WBC (3.8-10.6) k/uL RBC (3.80-5.40) m/uL Hgb (11.4-16.0) gm/dL Hct (34.0-46.0) % MCV (80.0-100.0) fL MCH (25.0-35.0) pg MCHC (31.0-37.0) g/dL RDW (11.5-15.5) % Plt Count (150-450) k/uL MPV Neutrophils % % Lymphocytes % % Monocytes % % Eosinophils % % Basophils % % Neutrophils # (1.3-7.7) k/uL Lymphocytes # (1.0-4.8) k/uL Monocytes # (0-1.0) k/uL Eosinophils # (0-0.7) k/uL Basophils # (0-0.2) k/uL Sodium (137-145) mmol/L Potassium (3.5-5.1) mmol/L Chloride (98-107) mmol/L Carbon Dioxide (22-30) mmol/L Anion Gap mmol/L BUN (7-17) mg/dL Creatinine (0.52-1.04) mg/dL Est GFR (CKD-EPI)AfAm (>60 ml/min/1.73 sqM) Est GFR (CKD-EPI)NonAf (>60 ml/min/1.73 sqM) Glucose (74-99) mg/dL Lactic Ac Sepsis Rflx Y Plasma Lactic Acid Patrick (0.7-2.0) mmol/L Calcium (8.4-10.2) mg/dL Total Bilirubin (0.2-1.3) mg/dL AST (14-36) U/L ALT (4-34) U/L Alkaline Phosphatase (38-126) U/L Total Protein (6.3-8.2) g/dL Albumin (3.5-5.0) g/dL Influenza Type A (PCR) (Not Detectd) Influenza Type B (PCR) (Not Detectd) RSV (PCR) (Not Detectd) SARS-CoV-2 (PCR) (Not Detectd) - EKG Data -: EKG Interpreted by [facility] EKG Comments: EKG taken 11: 53 showing atrial fibrillation. Ventricular rate 97, QRS ration 84, QT/QTc 336/391. - Radiology Data Radiology results: report reviewed, image reviewed Disposition Clinical Impression: Influenza, Dehydration Disposition: ADMITTED IP TO THIS HOSP Condition: Stable Time of Disposition: 14:24
[2024-05-23] MEDS: SODIUM CHLORIDE 0.9% 500 ML 500 ML IV ONE (12:22)
--- NOTE | 2024-05-23 12:23 | XR ---
EXAMINATION TYPE: XR chest 2V DATE OF EXAM: 05/23/2024 12:17 PM COMPARISON: 05/21/2024 CLINICAL INDICATION: Female, 84 years old with history of sob flu+: Shortness of breath TECHNIQUE: XR chest 2V views of the chest are obtained. FINDINGS: Scattered senescent parenchymal changes noted. Hyperinflation compatible with COPD. No evidence for infiltrate. No evidence for atelectasis. Heart size is stable. Mediastinal structures are stable and grossly unremarkable. No evidence for hilar prominence. Degenerative changes dorsal spine. IMPRESSION: 1. No evidence for acute pulmonary disease. [facility], , 05/23/2024 12:21 PM
[2024-05-23 12:31] LABS: Basophils % (A) 0 %; Eosinophils % (A) 0 %; HCT 50.2 % (34.0-46.0); HGB 16.6 gm/dL (11.4-16.0); Lymphocytes # (A) 0.9 k/uL (1.0-4.8); Lymphocytes % (A) 9 %; MCH 30.7 pg (25.0-35.0); MCHC 33.1 g/dL (31.0-37.0); MCV 92.7 fL (80.0-100.0); Mean Platelet Volume 8.9; Monocytes # (A) 0.6 k/uL (0-1.0); Monocytes % (A) 6 %; Neutrophils # (A) 8.3 k/uL (1.3-7.7); Neutrophils % (A) 83 %; Platelet Count 173 k/uL (150-450); RBC 5.42 m/uL (3.80-5.40); RDW 14.6 % (11.5-15.5); WBC 9.9 k/uL (3.8-10.6)
[2024-05-23 12:34] LABS: ALT 67 U/L (4-34); AST 45 U/L (14-36); African American GFR (CKD) >90 (>60 ml/min/1.73 sqM); Albumin 3.5 g/dL (3.5-5.0); Alkaline Phosphatase 63 U/L (38-126); Anion Gap 6 mmol/L; Blood Urea Nitrogen 17 mg/dL (7-17); Calcium 9.4 mg/dL (8.4-10.2); Carbon Dioxide 29 mmol/L (22-30); Chloride 101 mmol/L (98-107); Glucose 102 mg/dL (74-99); Non-African American GFR(CKD) 80 (>60 ml/min/1.73 sqM); Potassium 4.3 mmol/L (3.5-5.1); Sodium 136 mmol/L (137-145); Total Bilirubin 1.6 mg/dL (0.2-1.3); Total Protein 6.1 g/dL (6.3-8.2)
[2024-05-23] MEDS: IPRATROPIUM-ALBUTEROL 3 ML NEB INHALATION STA (12:41)
[2024-05-23 13:34] LABS: Influenza A Detected (Not Detectd); Influenza B Not Detected (Not Detectd); RSV Not Detected (Not Detectd)
[2024-05-23] MEDS ORDERED: ACETAMINOPHEN TAB 325 MG TAB PO PRN (14:24)
[2024-05-23] MEDS ORDERED: NALOXONE 0.4 MG/ML 1 ML VIAL IV PRN (14:24)
[2024-05-23] MEDS ORDERED: ONDANSETRON 4 MG/2 ML VIAL IVP PRN (16:07)
[2024-05-23] MEDS ORDERED: ALBUTEROL NEBULIZED 2.5 MG/3 ML INHALATION PRN (16:09)
[2024-05-23] MEDS: SODIUM CHLORIDE 0.9% 1,000 ML IV SCH (16:10)
[2024-05-23] MEDS ORDERED: IPRATROPIUM-ALBUTEROL 3 ML NEB INHALATION PRN (17:50)
--- NOTE | 2024-05-23 17:52 | P.HPIM ---
History of Present Illness H&P Date: 05/23/24 84 year old F with PMH of RA, A-Fib, Hypothyroid, HLD presents to the ED for worsening shortness of breath. Recently seen in the ED for 05/21 for similar complaints, diagnosed with Flu A, discharged on Tamiflu, steroid taper and nebulizer. Patient reports not being able to use the nebulizer once she got home. Symptoms persisted which prompted her to come to the ED. She denies any lower extremity swelling or orthopnea. Denies headache, nausea or vomiting, fever or chills, chest pain, palpitations, changes in urination or bowel habits. History of smoking 1 pack of cigarettes for 10 years. In the ED she underwent extensive evaluation. BP 138/85, HR 56, T 97.6F, RR 22, 96% on RA. CBC and CMP significant for RBC 5.42, Hg 16.6, Hct 50.2, Na 136, glu 102, T. Bili 1.6, AST 45, ALT 67. Lactic acid 2.3. Flu +. CXR no acute process. EKG showed A-Fib. Patient is admitted for further workup and management. General: non toxic, no distress, appears at stated age Derm: warm, dry Head: atraumatic, normocephalic, symmetric Mouth: no lip lesion, mucus membranes moist Cardiovascular: S1S2 irreg, no murmur Lungs: Expiratory wheezing bilaterally, no rales , no accessory muscle use Ext: no gross muscle atrophy, no edema, no contractures Neuro: no focal neuro deficits Psych: Alert and oriented. Based on my assessment of this patient, this patient meets a high complexity level of care. Acute COPD exacerbation: Likely due to Flu. DuoNeb QID scheduled and PRN SOB/wheezing. Start SoluMedrol 60 mg IV Q6H. Would benefit from Pulmonary outpatient eval to rule out ILD from MTX use. Polycythemia, Lactic acidosis and mild Hyponatremia likely secondary to dehydration: Start NS at 75 cc/hr. Trend lactic acid until neg. Repeat labs in the AM. Transaminitis: Obtain Liver GB US. Dyspnea likely due to Flu A: Completed course of Tamiflu? Not hypoxic. Albuterol neb PRN SOB/wheezing. Rheumatoid arthritis: MTX and Prednisone. Atrial fibrillation: Eliquis 5 mg PO BID for AC. Metoprolol 75 mg PO BID. Hypothyroid: Synthroid 88 mcg PO QD. Dyslipidemia: Lipitor 20 mg PO QD. CODE STATUS: FULL CODE. DVT Prophylaxis: SCD GI Prophylaxis: Designated medical POA if patient is not able to make medical decisions for themselves: I have reviewed the following intelligence consultant notes: ED note. I have reviewed the results of the following tests: As above. I have ordered the following tests: As above. I have discussed the care of this patient with the following independent historian: RN. I have independently interpreted the following test below: EKG. 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, past R hand infection POST SX, TINNITIUS History of Any Multi-Drug Resistant Organisms: None Reported Past Surgical History: Heart Catheterization, Hernia Repair, Hysterectomy, Orthopedic Surgery Additional Past Surgical History / Comment(s): eye surgery FOR DOUBLE VISION, HAND SX Past Anesthesia/Blood Transfusion Reactions: No Reported Reaction Past Psychological History: No Psychological Hx Reported Smoking Status: Former smoker Past Alcohol Use History: None Reported Past Drug Use History: None Reported - Past Family History Mother History Unknown: Yes Additional Family Medical History / Comment(s): Mother when pt was born. Father Family Medical History: Coronary Artery Disease (CAD) Additional Family Medical History / Comment(s): Father at the age of 83yrs from heart disease. Medications and Allergies Home Medications Medication Instructions Recorded Confirmed Type Calcium Carbonate [Calcium] 600 - 1,200 mg PO DAILY 04/26/16 05/23/24 History Ipratropium [place] 0.06%Nasal 1 spray EA NOSTRIL DAILY 04/26/16 05/23/24 History [Atrovent Nasal 0.06%] Levothyroxine Sodium [Synthroid] 88 mcg PO DAILY 04/26/16 05/23/24 History metHOTREXate sodium [Methotrexate] 7.5 mg PO DIRECTED 04/26/16 05/23/24 History predniSONE 5 mg PO DIRECTED 04/26/16 05/23/24 History Apixaban [Eliquis] 5 mg PO BID #60 tab 04/29/16 05/23/24 Rx Atorvastatin Calcium [Lipitor] 20 mg PO DAILY 09/04/19 05/23/24 History Cetirizine HCl [Zyrtec] 10 mg PO DAILY 04/17/20 05/23/24 History Folic Acid 0.8 mg PO DAILY 04/17/20 05/23/24 History Metoprolol Tartrate [Lopressor] 75 mg PO BID 30 Days #180 tablet 04/22/20 05/23/24 Rx D-Mannose 2 cap PO DAILY 05/21/24 05/23/24 History Vitamin D3(Unknown Dose) 2 tab PO DAILY 05/21/24 05/23/24 History predniSONE See Taper PO DAILY 05/21/24 05/23/24 History Albuterol Nebulized [Ventolin 2.5 mg INHALATION RT-QID PRN 05/23/24 05/23/24 History Nebulized] Allergies Allergy/AdvReac Type Severity Reaction Status Date / Time clindamycin Allergy Rash/Hives Verified 05/23/24 14:43 erythromycin base Allergy Rash/Hives Verified 05/23/24 14:43 infliximab [From Remicade] Allergy Anaphylaxis Verified 05/23/24 14:43 Physical Exam Vitals: Vital Signs Temp Pulse Resp BP Pulse Ox 05/23/24 12:51 94 18 05/23/24 12:41 93 18 05/23/24 11:38 26 H 05/23/24 11:31 97.6 F 56 L 22 138/85 96 Intake and Output 05/23/24 05/23/24 05/23/24 06:59 14:59 22:59 Other: Weight 63.503 kg Results CBC & Chem 7: 05/23/24 12:09 05/23/24 12:09 Labs: Abnormal Lab Results - Last 24 Hours (Table) 05/23/24 05/23/24 05/23/24 Range/Units 12:09 12:09 12:09 RBC 5.42 H (3.80-5.40) m/uL Hgb 16.6 H (11.4-16.0) gm/dL Hct 50.2 H (34.0-46.0) % Neutrophils # 8.3 H (1.3-7.7) k/uL Lymphocytes # 0.9 L (1.0-4.8) k/uL Sodium 136 L (137-145) mmol/L Glucose 102 H (74-99) mg/dL Plasma Lactic Acid Patrick 2.3 H* (0.7-2.0) mmol/L Total Bilirubin 1.6 H (0.2-1.3) mg/dL AST 45 H (14-36) U/L ALT 67 H (4-34) U/L Total Protein 6.1 L (6.3-8.2) g/dL Influenza Type A (PCR) (Not Detectd) 05/23/24 Range/Units 12:52 RBC (3.80-5.40) m/uL Hgb (11.4-16.0) gm/dL Hct (34.0-46.0) % Neutrophils # (1.3-7.7) k/uL Lymphocytes # (1.0-4.8) k/uL Sodium (137-145) mmol/L Glucose (74-99) mg/dL Plasma Lactic Acid Patrick (0.7-2.0) mmol/L Total Bilirubin (0.2-1.3) mg/dL AST (14-36) U/L ALT (4-34) U/L Total Protein (6.3-8.2) g/dL Influenza Type A (PCR) Detected A (Not Detectd)
[2024-05-23] MEDS: methylPREDNISolone SOD SUCCI 125 MG/2 ML VIAL IV SCH (18:46)
[2024-05-23] MEDS: APIXABAN 5 MG TAB PO SCH (19:48)
[2024-05-23] MEDS: METOPROLOL TARTRATE 25 MG TAB PO SCH (19:48)
[2024-05-23] MEDS: IPRATROPIUM-ALBUTEROL 3 ML NEB INHALATION SCH (20:21)
[2024-05-23] MEDS: cloNIDine HCL 0.2 MG TAB PO STA (22:10)
[2024-05-24 07:31] VITALS: BP 142/67; RESP 16; TEMP 97.3
[2024-05-24] MEDS: LEVOTHYROXINE 88 MCG TAB PO SCH (07:50)
[2024-05-24] MEDS: FOLIC ACID 1 MG TAB PO SCH (07:51)
[2024-05-24] MEDS: LORATADINE 10 MG TAB PO SCH (07:51)
[2024-05-24] MEDS: ATORVASTATIN 20 MG TAB PO SCH (07:51)
--- NOTE | 2024-05-24 07:59 | US ---
EXAMINATION TYPE: US gallbladder DATE OF EXAM: 05/24/2024 Exam done portable COMPARISON: CT 2020 CLINICAL INDICATION: Female, 84 years old with history of transaminitis, add liver as well; TECHNIQUE: Grayscale and color Doppler imaging of the right upper quadrant was performed. FINDINGS: EXAM MEASUREMENTS: Liver Length: 12.9 cm CBD: 0.8 cm Right Kidney: 9.0 x 4.0 x 3.6 cm Pancreas: limited by overlying midline bowel gas Liver: wnl Gallbladder: surgically absent Evidence for sonographic Gray's sign: no CBD: wnl Right Kidney: wnl IMPRESSION: No evidence for obstructive uropathy or acute process. The liver is within normal limits. [facility], , 05/24/2024 7:57 AM
[2024-05-24 08:35] LABS: Magnesium 1.7 mg/dL (1.5-2.4)
[2024-05-24 08:36] LABS: BUN/Creat Ratio 23.57 Ratio (12.00-20.00); Blood Urea Nitrogen 16.5 mg/dL (9.0-27.0); Calcium 8.6 mg/dL (8.7-10.3); Carbon Dioxide 25.9 mmol/L (21.6-31.8); Chloride 106 mmol/L (96-109); Glucose 163 mg/dL (70-110); Potassium 4.8 mmol/L (3.5-5.5); Sodium 141 mmol/L (135-145)
[2024-05-24 08:37] LABS: Basophils # (A) 0.01 X 10*3/uL (0.00-0.10); Basophils % (A) 0.2 %; Eosinophils # (A) 0 X 10*3/uL (0.04-0.35); Eosinophils % (A) 0 %; HCT 46.5 % (37.2-46.3); HGB 14.9 g/dL (12.0-15.0); Lymphocytes % (A) 5.3 %; MCH 30.2 pg (27.0-32.0); MCV 94.1 FL (80.0-97.0); Mean Platelet Volume 12.1 FL (9.5-12.2); Monocytes # (A) 0.11 X 10*3/uL (0.20-1.00); NRBC Per 100 WBC 0 X 10*3/uL (0.00-0.01); Neutrophils # (A) 5.17 X 10*3/uL (1.80-7.70); Neutrophils % (A) 91.8 %; Platelet Count 159 X 10*3/uL (140-440); RBC 4.94 X 10*6/uL (4.10-5.20); RDW 15.2 % (11.5-14.5); WBC 5.63 X 10*3/uL (4.50-10.00)
[2024-05-24] MEDS: MAGNESIUM OXIDE 400 MG TAB PO STA (11:04)
[2024-05-24 11:40] VITALS: PULSE 88
--- NOTE | 2024-05-24 12:33 | P.DS ---
Providers Date of admission: 05/23/24 16:20 Expected date of discharge: 05/24/24 Attending physician: Haja Cooper Primary care physician: Jhonny Ryan [facility] Course: Discharge Diagnosis: Shortness of breath, mild COPD exacerbation. Patient to resume home steroid taper. Patient provided with nebulizer machine and education on use. Influenza A. Patient to complete course of Tamiflu as previously prescribed. Lactic acidosis, resolved Chronic atrial fibrillation Hypothyroidism Rheumatoid arthritis Hospital Course: Patient is a very pleasant 84-year-old female with a past medical history of rheumatoid arthritis, chronic atrial fibrillation, COPD not home oxygen dependent, hypothyroidism, and hyperlipidemia. She presented to the emergency department on 05/23/2024 after recent diagnosis of influenza A in which she was started on Tamiflu, steroid taper, nebulizer treatments. Patient states that she does not have a home nebulizer machine and was taking all of her medications as prescribed and using DuoNebs intranasally without any improvement in her shortness of breath. In the ED she underwent extensive evaluation. BP 138/85, HR 56, T 97.6F, RR 22, 96% on RA. CBC and CMP significant for RBC 5.42, Hg 16.6, Hct 50.2, Na 136, glu 102, T. Bili 1.6, AST 45, ALT 67. Lactic acid 2.3. Flu +. CXR no acute process. EKG showed A-Fib. Patient is admitted for further workup and management. Patient was admitted under our services with consultation to case management. Patient admitted overnight and was provided with home nebuliz er machine. She reports feeling great and currently denies any complaints. She is maintaining oxygen saturations at rest and on room air. She is medically optimized and stable for discharge home, resume prednisone taper and Tamiflu as previously prescribed and states that she has plenty of DuoNebs to use for nebulizer machine and denies need for refill. Patient to follow-up outpatient with PCP in 1 to 2 days and was discharged home with [facility]. Physical examination: Vital signs reviewed and stable. General: Nontoxic, no distress and appears stated age. Derm: Skin warm and dry, normal coloration for ethnicity. Head: Atraumatic, normocephalic and symmetric. Eyes: EOM's intact, no lid lag, and anicteric sclera Mouth: no lip lesions, mucus membranes moist Cardiovascular: Irregularly irregular, systolic murmur, positive posterior tibial pulses bilaterally, and cap refill < 2 seconds. Lungs: Respirations even, regular, and unlabored on room air. Lungs CTA bilaterally, no rhonchi, no rales, no wheezing, and no accessory muscle usage. Abdominal: soft, nontender to palpation, no guarding, no appreciable organomegaly Ext: ROM intact. No gross muscle atrophy, no edema, no contractures Neuro: Speech clear, face symmetrical and CN II-XII grossly intact with no noted focal neuro deficits Psych: Alert and oriented to person, place, time, and situation. Appropriate and pleasant affect. A total of 31 minutes of time were spent preparing this complex discharge summary. Pt was discharged on 05/24/2024 at 12:29 PM Patient was seen independently by Nurse Practitioner. This document was prepared using [employer] dictation software. Please allow for errors in assistant accounting manager while rare they do occur. Raudel Garcia NP rendered care for this patient independently, reviewed the findings and plan as documented in the note above. I did not physically speak with or examine the patient on this date. Patient Condition at Discharge: Stable Plan - Discharge Summary Discharge Rx Participant: No New Discharge Prescriptions: Continue Calcium Carbonate [Calcium] 600 - 1,200 mg PO DAILY metHOTREXate sodium [Methotrexate] 7.5 mg PO DIRECTED Levothyroxine Sodium [Synthroid] 88 mcg PO DAILY Ipratropium [place] 0.06%Nasal [Atrovent Nasal 0.06%] 1 spray EA NOSTRIL DAILY predniSONE 5 mg PO DIRECTED Apixaban [Eliquis] 5 mg PO BID #60 tab Atorvastatin Calcium [Lipitor] 20 mg PO DAILY Cetirizine HCl [Zyrtec] 10 mg PO DAILY Folic Acid 0.8 mg PO DAILY Metoprolol Tartrate [Lopressor] 75 mg PO BID 30 Days #180 tablet predniSONE See Taper PO DAILY Albuterol Nebulized [Ventolin Nebulized] 2.5 mg INHALATION RT-QID PRN PRN Reason: Dyspnea D-Mannose 2 cap PO DAILY Vitamin D3(Unknown Dose) 2 tab PO DAILY Discharge Medication List Calcium Carbonate [Calcium] 600 - 1,200 mg PO DAILY 04/26/16 [History] Ipratropium [place] 0.06%Nasal [Atrovent Nasal 0.06%] 1 spray EA NOSTRIL DAILY 04/26/16 [History] Levothyroxine Sodium [Synthroid] 88 mcg PO DAILY 04/26/16 [History] metHOTREXate sodium [Methotrexate] 7.5 mg PO DIRECTED 04/26/16 [History] predniSONE 5 mg PO DIRECTED 04/26/16 [History] Apixaban [Eliquis] 5 mg PO BID #60 tab 04/29/16 [Rx] Atorvastatin Calcium [Lipitor] 20 mg PO DAILY 09/04/19 [History] Cetirizine HCl [Zyrtec] 10 mg PO DAILY 04/17/20 [History] Folic Acid 0.8 mg PO DAILY 04/17/20 [History] Metoprolol Tartrate [Lopressor] 75 mg PO BID 30 Days #180 tablet 04/22/20 [Rx] D-Mannose 2 cap PO DAILY 05/21/24 [History] Vitamin D3(Unknown Dose) 2 tab PO DAILY 05/21/24 [History] predniSONE See Taper PO DAILY 05/21/24 [History] Albuterol Nebulized [Ventolin Nebulized] 2.5 mg INHALATION RT-QID PRN 05/23/24 [History] Follow up Appointment(s)/Referral(s): [facility], [NON-STAFF] - 1 Week [facility] [NON-STAFF] - 1 Week Jhonny Ryan DO [Primary Care Provider] - 1-2 days Patient Instructions/Handouts: Influenza (DC), COPD (Chronic Obstructive Pulmonary Disease) (DC), How to Use a Nebulizer (DC) Discharge/Stand Alone Forms: Assisted Living Facilities, Community Resources, Help In The Home Discharge Disposition: HOME WITH HOME HEALTH SERVICES
== END 2024-05-24 13:01 | disposition home health service (06) ==
LOC: EC 11:30 → 6NMEDSUR 16:20
PROVIDERS: ADMIT Student in an Organized Health Care Education/Training Program; ATTEND Student in an Organized Health Care Education/Training Program
DX: J44.1 Chronic obstructive pulmonary disease with (acute) exacerbation (principal); J10.1 Influenza due to other identified influenza virus with other respiratory manifestations; I48.20 Chronic atrial fibrillation, unspecified; E87.1 Hypo-osmolality and hyponatremia; D75.1 Secondary polycythemia; R74.01 Elevation of levels of liver transaminase levels; E87.20 Acidosis, unspecified; E03.9 Hypothyroidism, unspecified; E78.5 Hyperlipidemia, unspecified; M06.9 Rheumatoid arthritis, unspecified; Z79.890 Hormone replacement therapy; Z79.899 Other long term (current) drug therapy; Z79.52 Long term (current) use of systemic steroids; Z79.01 Long term (current) use of anticoagulants; Z85.819 Personal history of malignant neoplasm of unspecified site of lip, oral cavity, and pharynx; Z87.891 Personal history of nicotine dependence
CPT/HCPCS: 96376 ×2; 96360; 96374; 99285; 36415; 94640 ×4; 93005; 80053; 80048; 83605; 83735; 85025 ×2; 87636; 71046; 76705; G0378 ×2; J2919 ×2